=== PATIENT | male | born 1965 | race Caucasian/White ===

== ENCOUNTER 2016-07-14 09:23 | Inpatient (IN) ==
[2016-07-14] MEDS ORDERED: SODIUM CHLORIDE 0.9% 1,000 ML IV STA (09:50)
[2016-07-14] MEDS ORDERED: ACETAMINOPHEN 325 MG TABLET ONE (09:51)
[2016-07-14] MEDS ORDERED: ACETAMINOPHEN 500 MG TABLET ONE (09:53)
--- NOTE | 2016-07-14 09:57 | Emergency Department Note ---
IAbigail Gwan, am scribing for, and in the presence of, Arun Ricci MD 09:49 . Keiry Warner James D, MD, personally performed the services described in this documentation, ascribed by Dean Hayes in my presence, and it is both accurate and complete [id number] . Arrival - Arrival Chief Complaint: Urogenital - Male Stated Complaint: septic, back pain, fever, sent by dr adamson ED Nursing Triage Note: Pt c/o blood in urine, burning upon urination, fever, chills, back pain x 1 month but getting worse. Mode of Arrival: Ambulatory Limitations: No Limitations Source: Patient, Old Records Reviewed, RN Notes Reviewed Time Seen by Provider: 07/14/16 09:35 - History of Present Illness HPI Narrative: Patient is a 50 y/o male who presents to the ED for further evaluation per Dr. Dionicio Adamson office due to possible sepsis. Patient was present at Dr. Adamson office due to hematuria, dysuria, fever, back pain and fever. stated that at last check, pt's temperature was 102. He then stated that for the past week, he has had a problem completely voiding and he has also noticed some hematuria. Patient confirmed that he has an in/out catheter for the past 10 years and recently he has been having a minimal output and that he caths at least 6x a day. He denies any N/V. During exam, pt's temperature was 100.1. Onset (ago): month(s) Consistency: constant Severity: moderate Allergies/Adverse Reactions: Allergies Allergy/AdvReac Type Severity Reaction Status Date / Time meperidine [From Demerol] Allergy Unknown/Unable Verified 07/14/16 09:33 to obtain Penicillins Allergy Unknown/Unable Verified 07/14/16 09:33 to obtain Home Medications: Home Medications Medication Instructions Recorded Confirmed Type Losartan Potassium 100 mg PO QPM 07/14/16 07/14/16 History Magnesium Oxide 400 mg PO QPM 07/14/16 07/14/16 History Metoprolol Tartrate 50 mg PO BID 07/14/16 07/14/16 History Warfarin [Coumadin] 7.5 mg PO SUTUTHSA 07/14/16 07/14/16 History Warfarin [Coumadin] 10 mg PO MOWEFR 07/14/16 07/14/16 History cloNIDine TAB [Catapres Tab] 0 mg PO DAILY PRN 07/14/16 07/14/16 History Review of System - Review of System 12 point system: reviewed and no additional remarkable complaints except as stated - Review of System Constitutional: Present: as per HPI, chills, fever, weakness Eyes: Absent: discharge, pain Head/Ears/Nose/Throat: Absent: earache Respiratory: Absent: cough Cardiovascular: Absent: chest pain Gastrointestinal: Absent: abdominal pain, nausea, vomiting Genitourinary male: Present: as per HPI, dysuria, hematuria Musculoskeletal: Absent: arm pain, back pain, leg pain Medical,Surgical,& Family Hx - Medical History Genitourinary: History of: Problems - Surgical History Cardiac Surgeries: Sugical HX of: Cardiac Surgery (arotic valve replacement) - Social History Smoking Status: Never smoker Exam Physical Examination: GENERAL: This is an ill-appearing, slightly pale white male in no apparent distress. VITAL SIGNS: HEENT: Head is normocephalic and atraumatic. Pupils are equally round and reactive to light. Extraocular movement are intact. Oropharynx is benign with moist mucous membranes. NECK: Neck is soft and supple without tenderness. There are no masses. There is no lymphadenopathy. LUNGS: Lungs are clear to auscultation bilaterally. Chest rises symmetrically. There is no chest wall tenderness. CV: Heart is regular rate and rhythm without murmurs, rubs, or gallops. ABDOMEN: Abdomen is soft, non-tender to palpation. There are no abnormal masses palpated. There is no organomegaly. Bowel sounds are present and active. No CVA tenderness. SKIN: Skin is pale and warm to touch. EXTREMITIES: Patient has full range of motion without tenderness. There is no pedal edema. NEUROLOGIC: Awake, alert, and oriented x4. Cranial nerves II through XII are grossly intact. There are no motorsensory deficits. PSYCHIATRIC: Normal affect. Normal mood. Vital Signs: Vital Signs Temperature 97.9 F 07/15/16 04:25 Pulse Rate 60 07/15/16 04:25 Respiratory Rate 20 07/15/16 04:25 Blood Pressure 136/72 07/15/16 04:25 O2 Sat by Pulse Oximetry 91 L 07/15/16 04:25 Course Course Narrative: Patient was given IV gentamicin and IV vancomycin in the emergency department. - Consultations Consultation #1: Discussed with Dr. Dionicio Adamson. Patient will be admitted to his service. Initial orders written for him. He will assume care of the patient upon his arrival to [facility]. Time: 11:28 Results - Labs CBC & BMP: 07/15/16 06:06 07/15/16 06:06 Lab Results: I have reviewed the patients labs Labs: Laboratory Tests 07/14/16 09:45 WBC 16.4 H RBC 4.95 Hgb 13.7 L Hct 41.1 L MCV 83.0 L Plt Count 192 Neut % (Auto) 88.7 H Lymph % (Auto) 5.8 L Neut # (Auto) 14.6 H Lymph # (Auto) 1.0 L Laboratory Tests 07/14/16 09:45 INR 2.1 PT Patient/Control Mix 23.0 Circ Anticoag PTT 49.5 H Laboratory Tests 07/14/16 09:45 Urine pH 7.0 Ur Specific [place] 1.014 Urine Protein 100 Urine Ketones 5 Urine Blood Moderate Urine Urobilinogen 2.0 H Urine Leukocytes Trace Urine RBC 47 Urine WBC 133 Laboratory Tests 07/14/16 09:45 Sodium 137 Potassium 3.7 Chloride 104 Carbon Dioxide 23 BUN 17 Creatinine 0.90 Glucose 144 H Lactic Acid 2.3 H Globulin 3.7 H Albumin/Globulin Ratio 0.9 L - Diagnostic Findings Procedure: Chest x-ray: report reviewed by me (Continued cardiomegaly status post sternotomy. There is a hazy opacification throughout the left lower lung suspicious for consolidatie process such as pneumonia. Osseous and surrounding soft tissue structures appear grossly unchanged. ) Disposition Clinical Impression: UTI (urinary tract infection), SIRS (systemic inflammatory response syndrome), Status post aortic valve replacement, History of dissection of thoracic aorta, Possible left-sided pneumonia Case discussed with: patient Disposition: Still a Patient Condition: Guarded Time of Disposition: 10:15
[2016-07-14 09:58] LABS: Basophils # 0.1 10*3/uL (0.0-0.2); Basophils % 0.3 % (0.0-0.8); Eosinophils % 0.1 % (0.00-10.9); Hematocrit 41.1 VOL% (42.0-52.0); Hemoglobin 13.7 GM/DL (14.0-18.0); Immature Granulocytes % 0.6 %; Lymphocytes % 5.8 % (21.2-54.2); Mean Corpuscular HGB Conc 33.3 GM/DL (32-36); Mean Corpuscular Hemoglobin 28 PG (27-34); Mean Platelet Volume 10.8 FL (9.6-12.0); Monocytes # 0.7 10*3/uL (0.11-0.8); Monocytes % 4.5 % (1.7-12.7); Neutrophils # 14.6 10*3/uL (1.4-7.4); Neutrophils % 88.7 % (38.7-73.9); Platelet Count 192 T/CUMM (130-400); Red Blood Count 4.95 MC/CUMM (3.8-5.5); Red Cell Distribution Width 14.6 % (9.3-17.3); White Blood Count 16.4 T/CUMM (4-12)
[2016-07-14] MEDS ORDERED: ACETAMINOPHEN 500 MG TABLET PO STA (09:58)
[2016-07-14] MEDS ORDERED: LEVOFLOXACIN INJ 500 MG in PREMIX 1 EACH IV SCH (10:00)
[2016-07-14] MEDS ORDERED: LACTATED RINGERS 1,000 ML IV SCH (10:00)
[2016-07-14] MEDS ORDERED: GENTAMICIN INJ 240 MG in SODIUM CHLORIDE 0.9% 100 ML IV STA (10:04)
--- NOTE | 2016-07-14 10:16 | XRay Report ---
XR chest 1V portable Indication: Fever Comparison: Chest x-ray dated June 21, 2013 Technique: Frontal views of the chest Findings: Continued cardiomegaly status post sternotomy. There is hazy opacification throughout the left lower lung suspicious for consolidative process such as pneumonia. Osseous and surrounding soft tissue structures appear grossly unchanged. IMPRESSION: As above. PROCEDURE INTERPRETED AT [facility] DEPARTMENT OF RADIOLOGY Final Report Signed by: Dr Darrion Fritz
[2016-07-14 10:17] LABS: INR 2.1; Partial Thromboplastin Time 49.5 SECS (0-40)
[2016-07-14 10:22] LABS: Apearance,Urine CLOUDY (Clear); Bacteria,Urine Occasional /HPF (Few); Bilirubin,Urine Negative (Negative); Blood, Urine Moderate mg/dL (Negative); Glucose,Urine (UA) Negative (Negative); Ketones,Urine 5 mg/dL (Negative); Mucus,Urine Occasional /LPF (Occasional); Nitrite,Urine Negative (Negative); Protein,Urine 100 MG/DL; RBC,Urine 47 /HPF (0-4); Squamous Epithelial Cell,Urine Occasional /HPF (0-10); Urine Specific Gravity 1.014 (1.001-1.035); WBC,Urine 133 /HPF (0-6)
[2016-07-14 10:23] LABS: Urine Color Yellow (Yellow)
[2016-07-14 10:25] LABS: Albumin 3.4 G/DL (3.4-5.0); Bilirubin,Total 0.9 MG/DL (0.2-1.0); Lactic Acid 2.3 MMOL/L (0.4-2.0); Osmolality,Calculated 277.8 MOS/KG (273-304); Potassium 3.7 MMOL/L (3.5-5.1); Total Protein 7.1 G/DL (6.4-8.3)
[2016-07-14] MEDS ORDERED: VANCOMYCIN INJ 1,000 MG in SODIUM CHLORIDE 0.9% 250 ML IV STA (10:58)
[2016-07-14] MEDS ORDERED: VANCOMYCIN 1,000 MG VIAL ONE ×2 (11:14→11:55)
[2016-07-14] MEDS ORDERED: ACETAMINOPHEN 325 MG TABLET PO PRN (12:48)
[2016-07-14] MEDS ORDERED: GLUCAGON 1 MG VIAL IM PRN (12:48)
[2016-07-14] MEDS ORDERED: DEXTROSE 50% 25 GM/50 ML VIAL IV PRN (12:48)
[2016-07-14] MEDS ORDERED: ONDANSETRON 4 MG/2 ML VIAL IV PRN (12:48)
[2016-07-14] MEDS ORDERED: PROMETHAZINE 25 MG/1 ML VIAL IM PRN (12:48)
[2016-07-14] MEDS: SODIUM CHLORIDE 0.45% 1,000 ML IV SCH (14:14)
--- NOTE | 2016-07-14 17:57 | Urology History & Physical ---
Assessment and Plan - Time spent with patient Time spent with patient: Greater than 30 minutes (1) Neurogenic bladder Status: Acute Assessment and plan: Continue intermittent catheterization and await cultures. Current Visit: Yes (2) Pneumonia Status: Acute Current Visit: Yes 12 point system: reviewed and no additional remarkable complaints except as stated - Respiratory Respiratory: Present: cough, dyspnea on exertion History of Present Illness Chief complaint: Back pain,cough History of present illness: Mr. Fontenot is a 50 year old male who is known to me. He shows up the emergency room feeling ill with a temperature. And I was called by the ER physician and I think the ER physician felt that he was becoming quite ill from urinary tract infection. He does have a neurogenic bladder and does perform intermittent catheterization. However when I am seeing him he has had a cough for a while and the chest x-ray reveals that he is got a pneumonia. Thaw I am not really sure what the cause of his being ill but I think it is probably pneumonia. His urine only shows occasional bacteria with the hematuria pyuria as expected on intermittent catheterization. Cultures are pending. Patient is on vancomycin and gentamicin. Those are not the best pulmonary drugs. So I am going to consult pulmonary and have the nurse asked the prepper what antibiotic is going to be on. I am going to stop the vancomycin. Will await his urine culture to see if he is truly infected. This could be a combination of sources urinary tract and pulmonary. Home Medications Medication Instructions Recorded Confirmed Type Losartan Potassium 100 mg PO QPM 07/14/16 07/14/16 History Magnesium Oxide 400 mg PO QPM 07/14/16 07/14/16 History Metoprolol Tartrate 50 mg PO BID 07/14/16 07/14/16 History Warfarin [Coumadin] 7.5 mg PO SUTUTHSA 07/14/16 07/14/16 History Warfarin [Coumadin] 10 mg PO MOWEFR 07/14/16 07/14/16 History cloNIDine TAB [Catapres Tab] 0 mg PO DAILY PRN 07/14/16 07/14/16 History Allergies Allergy/AdvReac Type Severity Reaction Status Date / Time meperidine [From Demerol] Allergy Unknown/Unable Verified 07/14/16 09:33 to obtain Penicillins Allergy Unknown/Unable Verified 07/14/16 09:33 to obtain Medical,Surgical,& Family Hx - Medical History Cardio: History of: Aneurysm Endocrine: History of: Diabetes Mellitus (NIDDM) Genitourinary: History of: Bladder Problem, Problems Musculoskeletal: History of: Back/Neck Problems, Musculoskeletal Problems - Surgical History Cardiac Surgeries: Sugical HX of: Cardiac Surgery (arotic valve replacement) - Social History Smoking Status: Never smoker Frequency of Alcohol Use: None Type of Drug Use: None Exam - Constitutional Vitals: Period Temp Pulse Resp BP Sys/Avendano Pulse Ox Last 24 Hr 98.3 F-99.6 F 62-71 16-24 119-151/58-97 92-96 - Respiratory Respiratory exam: Present: decreased breath sounds, rales - Cardiovascular Cardiovascular exam: Present: regular rate and rhythm - GI/Abdominal GI/Abdominal exam: Present: normal bowel sounds, soft. Absent: ascites, distended, firm, guarding, hernia, tenderness - Genitourinary Genitourinary: scrotum without lesions, cysts, edema or rash, penis with no lesions or discharge, prostate nontender, with no enlargement or nodules Results - Labs CBC & BMP: 07/14/16 09:45 07/14/16 09:45
[2016-07-14] MEDS: cefTRIAXone 2,000 MG in SODIUM CHLORIDE 0.9% 100 ML IV SCH (19:26)
[2016-07-14] MEDS ORDERED: WARFARIN 10 MG TABLET PO SCH ×2 (20:00→21:00)
[2016-07-14] MEDS ORDERED: VANCOMYCIN INJ 1,750 MG in SODIUM CHLORIDE 0.9% 500 ML IV SCH (21:00)
[2016-07-14] MEDS ORDERED: LOSARTAN 50 MG TABLET PO SCH ×2 (21:00)
[2016-07-14] MEDS ORDERED: WARFARIN 7.5 MG TABLET PO SCH (21:00)
[2016-07-14] MEDS ORDERED: WARFARIN 5 MG TABLET ONE (21:43)
[2016-07-14] MEDS: LOSARTAN 50 MG TABLET PO SCH (22:57)
[2016-07-14] MEDS: METOPROLOL TARTRATE 50 MG TABLET PO SCH (22:57)
[2016-07-14] MEDS: GENTAMICIN INJ 480 MG in SODIUM CHLORIDE 0.9% 100 ML IV SCH (22:58)
[2016-07-15] MEDS: SODIUM CHLORIDE 0.45% 1,000 ML IV SCH ×4 (01:55→20:12)
[2016-07-15 07:32] LABS: Basophils % 0.6 % (0.0-0.8); Eosinophils # 0.1 10*3/uL (0.0-0.87); Eosinophils % 1.7 % (0.00-10.9); Hematocrit 38.2 VOL% (42.0-52.0); Hemoglobin 12.2 GM/DL (14.0-18.0); Immature Granulocytes % 0.6 %; Immature Granulocytes Absolute 0.04 #; Lymphocytes # 1.6 10*3/uL (1.4-4.0); Lymphocytes % 24.5 % (21.2-54.2); Mean Corpuscular HGB Conc 31.9 GM/DL (32-36); Mean Corpuscular Hemoglobin 27 PG (27-34); Mean Corpuscular Volume 84.5 FL (87-102); Mean Platelet Volume 11.1 FL (9.6-12.0); Monocytes # 0.7 10*3/uL (0.11-0.8); Monocytes % 10.6 % (1.7-12.7); Neutrophils # 4.1 10*3/uL (1.4-7.4); Platelet Count 169 T/CUMM (130-400); Red Blood Count 4.52 MC/CUMM (3.8-5.5); Red Cell Distribution Width 14.8 % (9.3-17.3); White Blood Count 6.5 T/CUMM (4-12)
--- NOTE | 2016-07-15 07:46 | Pulmonology Consult Note ---
Assessment and Plan (1) Acute bronchitis Status: Acute Assessment and plan: Rocephin should cover this. Cannot be sure if he has pneumonia. We will get a CT scan. The chest x-ray that I see now looks pretty much the same as one from 2014 with some haziness at the left lower chest. Likely due to previous thoracotomy and recurrent pleural effusions following that. Current Visit: Yes (2) Acute and chronic sinusitis Status: Acute Assessment and plan: Rocephin should cover. Current Visit: Yes (3) History of dissection of thoracic aorta Status: Acute Assessment and plan: Lead to previous left thoracotomy leaving permanent abnormalities on his chest x -ray. Current Visit: Yes (4) Status post aortic valve replacement Status: Acute Assessment and plan: Keep in mind if blood cultures are positive. He would need prolonged antibiotics if they are. Current Visit: Yes History of Present Illness Chief complaint: Cough and fever History of present illness: Mr. Fontenot is a 50 year old male who had congestion for the past week and fever to 102 for the last 2 days. He has chronic sinus problems after an accident as a child requiring a good bit of sinus surgery. He had an aortic valve replacement about 15 years ago here. He had a left thoracotomy for thoracic aortic aneurysm with dissection 3 or 4 years ago at [facility]. They subsequently had to train a good bit of fluid off his left chest over and over again and he is left with some haziness of the left lower chest seen on previous x-rays. Reviewing the current chest x-ray I do not see anything that I would call pneumonia. However I would recommend getting a noncontrast chest CT to be sure about that. I discussed the case with Dr. Travis yesterday and recommended Rocephin. That would help with either sinusitis or a bronchopneumonia or bronchitis or urinary tract infection. I suspect he has got sinusitis and bronchitis. Home Medications Medication Instructions Recorded Confirmed Type Losartan Potassium 100 mg PO QPM 07/14/16 07/14/16 History Magnesium Oxide 400 mg PO QPM 07/14/16 07/14/16 History Metoprolol Tartrate 50 mg PO BID 07/14/16 07/14/16 History Warfarin [Coumadin] 7.5 mg PO SUTUTHSA 07/14/16 07/14/16 History Warfarin [Coumadin] 10 mg PO MOWEFR 07/14/16 07/14/16 History cloNIDine TAB [Catapres Tab] 0 mg PO DAILY PRN 07/14/16 07/14/16 History Allergies Allergy/AdvReac Type Severity Reaction Status Date / Time meperidine [From Demerol] Allergy Unknown/Unable Verified 07/14/16 09:33 to obtain Penicillins Allergy Unknown/Unable Verified 07/14/16 09:33 to obtain - Constitutional Constitutional: Present: fever(s) - EENT Nose, mouth and throat: Present: other (Previous left facial and sinus surgery with chronic sinusitis) - Respiratory Respiratory: Present: cough, change in phlegm color (Sputum is actually clear) - Genitourinary Genitourinary: Present: other (Has a neurogenic bladder and catheterised himself frequently.) Exam (Pulmonay) H&P - Constitutional Vitals: Period Temp Pulse Resp BP Sys/Avendano Pulse Ox Last 24 Hr 97.9 F-99.6 F 60-71 16-24 119-151/58-97 91-96 Exam: Alert oriented. Afebrile present but had a temperature of 102 prior to admission. Pupils equal and reactive. Neck supple no bruits. Chest reveals some dullness at the left base and decreased breath sounds. Left thoracotomy scar is noted. Heart normal rate irregular rhythm, mechanical aortic valve click noted. Abdomen soft nontender no masses. Extremities no clubbing cyanosis or edema. Calves nontender. Medical,Surgical,& Family Hx - Medical History Cardio: History of: Aneurysm Endocrine: History of: Diabetes Mellitus (NIDDM) Genitourinary: History of: Bladder Problem, Problems Musculoskeletal: History of: Back/Neck Problems, Musculoskeletal Problems - Surgical History Cardiac Surgeries: Sugical HX of: Cardiac Surgery (arotic valve replacement) - Social History Smoking Status: Never smoker Frequency of Alcohol Use: None Type of Drug Use: None Results - Labs CBC & BMP: 07/15/16 06:06 07/14/16 09:45 Lab Results: I have reviewed the past 24 hour labs - Diagnostic Findings Procedure: Chest x-ray: image reviewed by me (Slightly hazy at left base. No ricardo infiltrates. Evidence of previous sternal splitting operation noted.)
[2016-07-15 08:06] LABS: Calcium 7.9 MG/DL (8.5-10.1); Osmolality,Calculated 283.1 MOS/KG (273-304)
[2016-07-15] MEDS: METOPROLOL TARTRATE 50 MG TABLET PO SCH ×2 (09:20→20:17)
--- NOTE | 2016-07-15 09:49 | CT Report ---
Exam:CT chest wo con Date:07/15/2016 7:49 AM Indication: Cough, fever, previous left thoracotomy question pneumonia Comparison: Previous CT scan 11/27/2012 Technical: Images were obtained from the thoracic inlet through the lung bases without use of intravenous contrast. Axial sagittal and coronal imaging was available for review.Dose reduction was performed with decreasing kv and mA and automated exposure Total DLP: 612.6 mGy*cm Findings: The thyroid gland, trachea and esophagus are unremarkable. The anterior middle and posterior mediastinum are demonstrated with small tiny nodes present in the carinal region and aortopulmonic window. No bulky adenopathy. No supraclavicular axillary nodes present. The heart is enlarged. The pulmonary arteries without contrast or not otherwise evaluated. Coronary artery calcifications are present. ASVD is present in the aorta. The lungs are right lung is clear. There is some pleural thickening in the left base anteriorly and along the lingula segment there is faint area of groundglass density anteriorly inferiorly. Minimal pleural thickening in the left posterior base. The bony structures are unremarkable. The adrenal glands are intact. The liver and spleen are unremarkable. Small accessory splenule is however present. The proximal kidneys appear intact. The gallbladder and pancreas are unremarkable. Impression: 1. Status post sternotomy with underlying cardiomegaly 2. Groundglass density in the lingula segment of the left lung. No defined pulmonary nodule otherwise noted. This could represent a component of scar not otherwise clarified. Follow-up repeat examination to ensure stability in approximately 1-3 months is recommended. No consolidating infiltrate present. This area measures approximately 3.5 cm PROCEDURE INTERPRETED AT [facility] DEPARTMENT OF RADIOLOGY Final Report Signed by: Dr. Carl Ulloa
--- NOTE | 2016-07-15 11:57 | Urology Progress Note ---
Assessment and Plan (1) Neurogenic bladder Status: Acute Assessment and plan: Continue intermittent catheterization and await cultures. Current Visit: Yes (2) Pneumonia Status: Acute Current Visit: Yes Urology - PN: Subj Interval history: Patient is feeling better. His white count is normal now. I will remove his Shah. In discussing his self cath technique I think he is doing a lot of things wrong. He is touching the end of the catheter and is not using Betadine at his meatus. I will remove his catheter. We will have the nurses go over Self-Cath technique. His blood cultures negative but urine cultures pending. I appreciate Dr. Hansen input. Exam - Constitutional Vitals: Period Temp Pulse Resp BP Sys/Avendano Pulse Ox Last 24 Hr 97.4 F-99.6 F 60-71 16-21 119-136/58-72 91-96 Results - Labs CBC & BMP: 07/15/16 06:06 07/15/16 06:06
[2016-07-15] MEDS ORDERED: WARFARIN 7.5 MG TABLET PO SCH ×2 (18:00→21:00)
[2016-07-15] MEDS: cefTRIAXone 2,000 MG in SODIUM CHLORIDE 0.9% 100 ML IV SCH (18:55)
[2016-07-15] MEDS: GENTAMICIN INJ 480 MG in SODIUM CHLORIDE 0.9% 100 ML IV SCH (19:54)
[2016-07-15] MEDS: LOSARTAN 50 MG TABLET PO SCH (20:17)
[2016-07-16] MEDS: SODIUM CHLORIDE 0.45% 1,000 ML IV SCH (07:16)
[2016-07-16] MEDS: METOPROLOL TARTRATE 50 MG TABLET PO SCH (08:52)
--- NOTE | 2016-07-16 09:17 | Pulmonology Progress Note ---
Pulmonary - PN: Subj Interval history: This 50-year-old white male came in with fever. He had had a cough. He had an abnormal urinalysis and has a positive urine culture for gram-positive cocci. The final report is not out. His chest x-ray suggested a left lower lobe pneumonia. The CT scan shows one area in the inferior lingula of groundglass opacity. This can be seen in pneumonia or could be old scarring. He had a lot of problems with his left chest following heart and thoracic aortic aneurysm surgeries. He had a large left pleural effusion that was drained multiple times about 4 years ago. It is likely that this small area is related to that but I cannot say that it is not pneumonia for sure. Thus he is on Rocephin. He is afebrile and feeling better. From a pulmonary standpoint he could be discharged on oral Ceftin for about 5 more days. He needs to have a repeat CT done here in about 3 months to be sure this area either clears up or is a stable scar. I will arrange for him to see me back in the clinic at that time. Exam (Progress Note) - Constitutional Vitals: Period Temp Pulse Resp BP Sys/Avendano Pulse Ox Last 24 Hr 97.8 F-99.0 F 54-76 18-20 133-152/63-78 92-94 Exam: He is alert afebrile pupils react to light throat clear neck supple no bruits. Chest sounds clear. He is missing several ribs on the left side from his previous lung surgery. Heart normal rate and rhythm with a click over his aortic valve. Abdomen is soft nontender no masses. Bowel sounds present. Extremities no clubbing cyanosis or edema. Calves nontender. Results - Labs CBC & BMP: 07/15/16 06:06 07/15/16 06:06 Lab Results: I have reviewed the past 24 hour labs - Diagnostic Findings Procedure: CT: image reviewed by me (Small area of groundglass opacity in the inferior lingula on the left. Likely old scarring. Could be localized pulmonary edema or pneumonia. Did not have the typical appearance of a pneumonia) Assessment and Plan (1) Acute bronchitis Status: Acute Assessment and plan: Rocephin should cover this. Cannot be sure if he has pneumonia. We will get a CT scan. The chest x-ray that I see now looks pretty much the same as one from 2014 with some haziness at the left lower chest. Likely due to previous thoracotomy and recurrent pleural effusions following that. 07/16/2016 can be discharged on oral Ceftin. It is not certain whether the inferior lingular area represents a scar from previous thoracic problems, or any acute pneumonia. I think it is likely an old scar. Would keep him on Ceftin for about 5 more days for this. Needs follow-up chest CT in 3 months which I will arrange. Current Visit: Yes (2) Acute and chronic sinusitis Status: Acute Assessment and plan: Rocephin should cover. Current Visit: Yes (3) History of dissection of thoracic aorta Status: Acute Assessment and plan: Lead to previous left thoracotomy leaving permanent abnormalities on his chest x -ray. 07/16/[address] likely related to the previous surgery for dissecting thoracic aortic aneurysm. He had large pleural effusion following that with recurrent drainage procedures. Current Visit: Yes (4) Status post aortic valve replacement Status: Acute Assessment and plan: Keep in mind if blood cultures are positive. He would need prolonged antibiotics if they are. 07/16/2016 blood cultures are negative. Aortic valve appears to be functioning normally. Current Visit: Yes (5) UTI (urinary tract infection) Status: Acute Assessment and plan: Likely related to his neurogenic bladder and recurrent catheterizations. Has a positive culture for gram-positive cocci. We do not have the final results on that. Defer to Dr. Travis on management of this. Current Visit: Yes
[2016-07-16 11:47] VITALS: BP 116/67
--- NOTE | 2016-07-16 12:46 | Discharge Summary ---
Hospital Course - Hospital Course Hospital Course: 50-year-old white male known to me. He has Self-Cath. He has multiple medical problems. One is a neurogenic bladder with large bladder diverticulum. He is on intermittent self cath. He unfortunately has had some recurrent urinary tract infections. But he presented with high fever ill and was admitted the hospital and cultured up. He was initially started on vancomycin and gentamicin. The vancomycin was stopped we added Rocephin. His chest x-ray showed some changes that could be a pneumonia. Dr. Hansen was consulted and he cannot rule this out to be a pneumonia or something else. But he recommends treating this as a pneumonia for now. Patient is afebrile now he is feeling much better and we will discharge him. Part of the problem I think was his self cath technique. After meticulously questioning him his technique is very poor. Hopefully we have corrected that. We also have offered him a new self- contained catheter and he likes it very much. We are changing his care company to [employer]. His urine culture grew is growing out gram-positive cocci the sensitivities pending. We will send him home on Bactrim. Dr. Hansen recommends Ceftin for 5 more days for the pulmonary issue. Bactrim will be 10 days for the urinary tract. I will see him in 2 weeks. - Time spent with patient Time with patient DS: Greater than 30 minutes Diagnosis - Discharge Diagnosis (1) Neurogenic bladder Status: Chronic (2) Pneumonia Status: Acute (3) UTI (urinary tract infection) Status: Resolved (4) SIRS (systemic inflammatory response syndrome) Status: Resolved Specialty Discharge - Follow Up or Referrals Discharge Plan - Discharge Data Disposition: Disch To Home/Self Care Condition at Discharge: Stable Discharge Diet: regular diet Activity: resume usual activities as tolerated Hygiene: no restrictions Weight Bearing at Discharge: full weight bearing Driving: no restrictions Contact your physician if you experience:: fever over 101, Shortness of breath, Bleeding - Discharge Medications New guaiFENesin/DM LIQUID [Robitussin Dm] 10 ml PO Q6H PRN #0 PRN Reason: Cough Continue Warfarin [Coumadin] 10 mg PO MOWEFR Magnesium Oxide 400 mg PO QPM Warfarin [Coumadin] 7.5 mg PO SUTUTHSA Metoprolol Tartrate 50 mg PO BID cloNIDine TAB [Catapres Tab] 0 mg PO DAILY PRN PRN Reason: BP >165 SYSTOLIC Losartan Potassium 100 mg PO QPM - Follow Up or Referral - Forms/Instructions Instructions: Urinary Tract Infection in Men (DC) Exam - Constitutional Vitals: Period Temp Pulse Resp BP Sys/Avendano Pulse Ox Last 24 Hr 97.5 F-99.0 F 49-76 16-20 116-152/67-78 92-94 Discharge Results Procedures and tests throughout hospitalization: Pending Orders 07/18/16 19:30 Gentamicin,Trough Timed Labs on day of discharge: Labs from last 24 hours 07/16/16 07/15/16 07/15/16 07:45 22:09 16:18 POC Glucose 151 H 112 H 120 H DS: Provider Date of admission: 07/14/16 11:02 Primary care physician: Dionicio Travis MD Attending physician on admission: Dionicio Travis MD Consults: 07/14/16 14:08 Consult to Pharmacy [CONS] Routine Reason for Pharmacy Consult: Dose/Manage Vancomycin Dose/Manage Gentamicin 07/14/16 17:05 Consult to Physician [CONS] Routine Comment: Consulting Provider: Dionicio Travis Person Notified: aware Date Notified: 07/15/16 Time Notified: 10:49 07/14/16 17:53 Consult to Physician [CONS] Routine Comment: Pneumonia Consulting Provider: Ion Hansen Consult to Specialist Group: Urology When should Consulting Provider be notified: Now Person Notified: Dr. Hansen Date Notified: 07/14/16 Time Notified: 18:06 Consult Notification Comment: Dr. Hansen aware Office needs to be called. Discharging clinician: Dionicio Travis MD
== END 2016-07-16 14:43 | disposition home or self-care (01) | DRG 202 ==
LOC: N.ED 09:23 → N.EDINP 11:02 → N.5E 11:43
PROVIDERS: ADMIT Urology; ATTEND Urology

== ENCOUNTER 2021-04-05 11:36 | Inpatient (IN) ==
[2021-04-05] MEDS ORDERED: methylPREDNISolone SOD SUC 40 MG/1 ML VIAL IV STA (13:11)
[2021-04-05] MEDS ORDERED: AZITHROMYCIN INJ 500 MG in SODIUM CHLORIDE 0.9% 250 ML IV STA (13:12)
[2021-04-05] MEDS ORDERED: cefTRIAXone 1,000 MG in SODIUM CHLORIDE 0.9% 100 ML IV STA (13:12)
[2021-04-05] MEDS ORDERED: SODIUM CHLORIDE 0.9% 250 ML IV ONE (13:54)
[2021-04-05 13:56] LABS: Basophils % 0.3 % (0.0-0.8); Hematocrit 47.2 VOL% (42.0-52.0); Hemoglobin 15.5 GM/DL (14.0-18.0); Immature Granulocytes % 0.5 %; Immature Granulocytes Absolute 0.03 #; Lymphocytes # 0.8 10*3/uL (1.4-4.0); Lymphocytes % 12.2 % (21.2-54.2); Mean Corpuscular HGB Conc 32.8 GM/DL (32-36); Mean Corpuscular Volume 81.7 FL (87-102); Mean Platelet Volume 10.3 FL (9.6-12.0); Monocytes % 5.9 % (1.7-12.7); Neutrophils % 81.1 % (38.7-73.9); Platelet Count 165 T/CUMM (130-400); Red Blood Count 5.78 MC/CUMM (3.8-5.5); Red Cell Distribution Width 15.7 % (9.3-17.3); White Blood Count 6.5 T/CUMM (4-12)
[2021-04-05 14:07] LABS: INR 3.2
[2021-04-05 14:08] LABS: PT Patient Result 32.4 SECS (10.5-12.0)
[2021-04-05 14:13] LABS: Alanine Aminotransferase 55 U/L (16-61); Albumin 3.2 G/DL (3.4-5.0); Alkaline Phosphatase 53 U/L (45-117); Aspartate Amino Transferase 89 U/L (0-37); Blood Urea Nitrogen 16 MG/DL (7-18); Calcium 8.5 MG/DL (8.5-10.1); Carbon Dioxide 26 MMOL/L (21-32); Estimated Glom Filtration Rate 142 ML/MIN; Glucose 129 MG/DL (74-106); Osmolality,Calculated 262.8 MOS/KG (273-304); Potassium 3.8 MMOL/L (3.5-5.1); Sodium 130 MMOL/L (136-145); Total Protein 7.2 G/DL (6.4-8.2)
[2021-04-05] MEDS ORDERED: ALBUTEROL INHALER 18 GM INH ONE (14:30)
[2021-04-05] MEDS ORDERED: DEXTROSE 10% 25 GM/250 ML BAG IV PRN (15:01)
[2021-04-05] MEDS ORDERED: GLUCAGON 1 MG VIAL IM PRN (15:01)
[2021-04-05] MEDS ORDERED: CETIRIZINE 10 MG TABLET PO PRN (15:03)
[2021-04-05] MEDS ORDERED: DEXAMETHASONE 10 MG/1 ML VIAL IV SCH (15:30)
[2021-04-05 15:45] LABS: Thyroid Stimulating Hormone 0.912 uIU/ml (0.358-3.74)
[2021-04-05 15:55] LABS: Ferritin 2781.7 ng/mL (26-388)
[2021-04-05] MEDS: CHOLECALCIFEROL 1,000 UNIT TABLET PO SCH (16:10)
[2021-04-05] MEDS: ZINC SULFATE 220 MG CAPSULE PO SCH (16:10)
[2021-04-05] MEDS ORDERED: REMDESIVIR 200 MG in SODIUM CHLORIDE 0.9% 210 ML IV ONE (17:00)
[2021-04-05] MEDS ORDERED: WARFARIN 7.5 MG TABLET PO SCH (18:00)
[2021-04-05] MEDS: ALBUTEROL INHALER 18 GM INH SCH (22:12)
[2021-04-05] MEDS: ASCORBIC ACID 500 MG TABLET PO SCH (22:22)
[2021-04-05] MEDS: ATORVASTATIN 40 MG TABLET PO SCH (22:22)
[2021-04-05] MEDS: ACETAMINOPHEN 325 MG TABLET PO PRN (22:22)
[2021-04-05] MEDS: FAMOTIDINE 20 MG TABLET PO SCH (22:22)
[2021-04-06] MEDS: ALBUTEROL INHALER 18 GM INH SCH ×4 (00:45→21:09)
[2021-04-06 03:18] LABS: Hematocrit 45.3 VOL% (42.0-52.0); Hemoglobin 14.3 GM/DL (14.0-18.0); Immature Granulocytes % 0.6 %; Immature Granulocytes Absolute 0.02 #; Lymphocytes # 0.6 10*3/uL (1.4-4.0); Lymphocytes % 19.2 % (21.2-54.2); Mean Corpuscular HGB Conc 31.6 GM/DL (32-36); Mean Corpuscular Volume 83.7 FL (87-102); Monocytes % 5.4 % (1.7-12.7); Neutrophils % 74.8 % (38.7-73.9); Platelet Count 145 T/CUMM (130-400); Red Blood Count 5.41 MC/CUMM (3.8-5.5); Red Cell Distribution Width 15.7 % (9.3-17.3); White Blood Count 3.3 T/CUMM (4-12)
[2021-04-06 03:37] LABS: Hypochromia Slight; Microcytosis 1+; PT Patient Result 40.3 SECS (10.5-12.0)
[2021-04-06 03:38] LABS: Ovalocytes Slight; Platelet Estimate Adequate
[2021-04-06 04:01] LABS: ABG Base Excess -0.6 MMOL/L (-2.5-2.5); ABG HCO3 23.9 MMOL/L (20-26); ABG Oxygen Saturation 97.6 % (95-100); ABG PCO2 49.2 MM HG (35-48); ABG PH 7.334 (7.35-7.45); ABG TCO2 22.4 MMOL/L (23-27)
[2021-04-06 04:07] LABS: Calcium 8.1 MG/DL (8.5-10.1); Osmolality,Calculated 274.5 MOS/KG (273-304); Potassium 4.1 MMOL/L (3.5-5.1)
[2021-04-06] MEDS: ASCORBIC ACID 500 MG TABLET PO SCH ×2 (09:15→21:09)
[2021-04-06] MEDS: CHOLECALCIFEROL 1,000 UNIT TABLET PO SCH (09:15)
[2021-04-06] MEDS: ZINC SULFATE 220 MG CAPSULE PO SCH (09:15)
[2021-04-06] MEDS: DEXAMETHASONE 10 MG/1 ML VIAL IV SCH (09:15)
[2021-04-06] MEDS: FAMOTIDINE 20 MG TABLET PO SCH ×2 (09:15→21:09)
[2021-04-06] MEDS: CETIRIZINE 10 MG TABLET PO SCH (09:30)
[2021-04-06] MEDS: REMDESIVIR 100 MG in SODIUM CHLORIDE 0.9% 100 ML IV SCH (09:30)
[2021-04-06] MEDS ORDERED: cloNIDine 0.1 MG TABLET PO PRN (13:13)
[2021-04-06] MEDS: cefTRIAXone 1,000 MG in SODIUM CHLORIDE 0.9% 100 ML IV SCH (14:16)
[2021-04-06] MEDS: AZITHROMYCIN INJ 500 MG in SODIUM CHLORIDE 0.9% 250 ML IV SCH (14:16)
[2021-04-06] MEDS: METOPROLOL TARTRATE 50 MG TABLET PO SCH (21:08)
[2021-04-06] MEDS: ATORVASTATIN 40 MG TABLET PO SCH (21:08)
[2021-04-06] MEDS: LOSARTAN 50 MG TABLET PO SCH (21:08)
[2021-04-07] MEDS: ALBUTEROL INHALER 18 GM INH SCH ×4 (01:12→18:00)
[2021-04-07 05:06] LABS: Basophils % 0.1 % (0.0-0.8); Hematocrit 49.2 VOL% (42.0-52.0); Hemoglobin 15.6 GM/DL (14.0-18.0); Immature Granulocytes % 0.6 %; Immature Granulocytes Absolute 0.06 #; Lymphocytes # 0.7 10*3/uL (1.4-4.0); Lymphocytes % 7.2 % (21.2-54.2); Mean Corpuscular HGB Conc 31.7 GM/DL (32-36); Mean Corpuscular Volume 83.8 FL (87-102); Mean Platelet Volume 10.5 FL (9.6-12.0); Monocytes % 7.3 % (1.7-12.7); Neutrophils % 84.8 % (38.7-73.9); Platelet Count 226 T/CUMM (130-400); Red Blood Count 5.87 MC/CUMM (3.8-5.5); Red Cell Distribution Width 16.1 % (9.3-17.3); White Blood Count 9.5 T/CUMM (4-12)
[2021-04-07 05:23] LABS: PT Patient Result 58.7 SECS (10.5-12.0)
[2021-04-07] MEDS ORDERED: CLORAZEPATE 3.75 MG TABLET PO PRN (07:57)
[2021-04-07] MEDS: METOPROLOL TARTRATE 50 MG TABLET PO SCH ×2 (08:34→20:23)
[2021-04-07 08:44] LABS: Albumin 2.7 G/DL (3.4-5.0); Bilirubin,Total 0.5 MG/DL (0.20-1.00); Calcium 8.4 MG/DL (8.5-10.1); Ferritin 3758.3 ng/mL (26-388); Osmolality,Calculated 280.1 MOS/KG (273-304); Potassium 4.5 MMOL/L (3.5-5.1); Total Protein 6.6 G/DL (6.4-8.2)
[2021-04-07] MEDS: DEXAMETHASONE 10 MG/1 ML VIAL IV SCH (08:49)
[2021-04-07] MEDS: REMDESIVIR 100 MG in SODIUM CHLORIDE 0.9% 100 ML IV SCH (08:51)
[2021-04-07] MEDS: ASCORBIC ACID 500 MG TABLET PO SCH ×2 (08:52→20:23)
[2021-04-07] MEDS: CHOLECALCIFEROL 1,000 UNIT TABLET PO SCH (08:52)
[2021-04-07] MEDS: FAMOTIDINE 20 MG TABLET PO SCH ×2 (08:52→20:23)
[2021-04-07] MEDS: CETIRIZINE 10 MG TABLET PO SCH (08:52)
[2021-04-07] MEDS: ZINC SULFATE 220 MG CAPSULE PO SCH (08:52)
[2021-04-07] MEDS: LORazepam 2 MG/1 ML VIAL IV PRN ×3 (09:24→22:47)
[2021-04-07] MEDS: AZITHROMYCIN INJ 500 MG in SODIUM CHLORIDE 0.9% 250 ML IV SCH (13:39)
[2021-04-07] MEDS ORDERED: BARICITINIB 2 MG TABLET PO SCH (14:30)
[2021-04-07] MEDS: cefTRIAXone 1,000 MG in SODIUM CHLORIDE 0.9% 100 ML IV SCH (15:16)
[2021-04-07] MEDS ORDERED: PHYTONADIONE 5 MG/5 ML ORAL.SYR PO ONE (16:00)
[2021-04-07] MEDS: LOSARTAN 50 MG TABLET PO SCH (18:00)
[2021-04-07 18:39] LABS: ABG Base Excess 1.6 MMOL/L (-2.5-2.5); ABG HCO3 25.6 MMOL/L (20-26); ABG Oxygen Saturation 91.1 % (95-100); ABG PCO2 40.5 MM HG (35-48); ABG PH 7.418 (7.35-7.45); ABG PO2 64.8 MM HG (80-95)
[2021-04-07] MEDS: ATORVASTATIN 40 MG TABLET PO SCH (21:00)
[2021-04-08 01:42] LABS: ABG Base Excess 0.8 MMOL/L (-2.5-2.5); ABG HCO3 25.1 MMOL/L (20-26); ABG Oxygen Saturation 96.8 % (95-100); ABG PCO2 37.9 MM HG (35-48); ABG PH 7.426 (7.35-7.45); ABG PO2 94.9 MM HG (80-95); ABG TCO2 20.6 MMOL/L (23-27)
[2021-04-08] MEDS ORDERED: LORazepam 2 MG/1 ML VIAL IV ONE (01:43)
[2021-04-08] MEDS: ALBUTEROL INHALER 18 GM INH SCH ×4 (01:48→22:29)
[2021-04-08] MEDS ORDERED: OLANZapine 10 MG VIAL IM ONE (02:58)
[2021-04-08] MEDS: LORazepam 2 MG/1 ML VIAL IV PRN ×2 (04:32→21:04)
[2021-04-08] MEDS ORDERED: ZIPRASIDONE 20 MG/1 ML VIAL IM ONE (04:40)
[2021-04-08 05:47] LABS: Basophils % 0.1 % (0.0-0.8); Hematocrit 54.9 VOL% (42.0-52.0); Hemoglobin 17.1 GM/DL (14.0-18.0); Immature Granulocytes % 1.1 %; Immature Granulocytes Absolute 0.11 #; Lymphocytes # 0.6 10*3/uL (1.4-4.0); Lymphocytes % 6.7 % (21.2-54.2); Mean Corpuscular HGB Conc 31.1 GM/DL (32-36); Mean Corpuscular Volume 85.1 FL (87-102); Mean Platelet Volume 10.1 FL (9.6-12.0); Monocytes % 7.3 % (1.7-12.7); Neutrophils % 84.8 % (38.7-73.9); Platelet Count 238 T/CUMM (130-400); Red Blood Count 6.45 MC/CUMM (3.8-5.5); Red Cell Distribution Width 17.3 % (9.3-17.3); White Blood Count 9.6 T/CUMM (4-12)
[2021-04-08 06:09] LABS: Calcium 8.9 MG/DL (8.5-10.1); Osmolality,Calculated 290.4 MOS/KG (273-304); Potassium 3.9 MMOL/L (3.5-5.1)
[2021-04-08 06:17] LABS: Osmolality,Calculated 285.8 MOS/KG (273-304); Potassium 3.8 MMOL/L (3.5-5.1)
[2021-04-08] MEDS ORDERED: MORPHINE 2 MG/1 ML SYRINGE IV ONE (06:24)
[2021-04-08 06:25] LABS: PT Patient Result 63.4 SECS (10.5-12.0)
[2021-04-08 06:26] LABS: Albumin 3.1 G/DL (3.4-5.0); Bilirubin,Total 0.9 MG/DL (0.20-1.00); Calcium 9.2 MG/DL (8.5-10.1); Ferritin 4243.5 ng/mL (26-388); Total Protein 7.1 G/DL (6.4-8.2)
[2021-04-08 06:27] LABS: INR 6.5
[2021-04-08 06:46] LABS: ABG HCO3 25.1 MMOL/L (20-26); ABG Oxygen Saturation 94.1 % (95-100); ABG PCO2 38.8 MM HG (35-48); ABG PH 7.421 (7.35-7.45); ABG PO2 74.5 MM HG (80-95); ABG TCO2 21.1 MMOL/L (23-27)
[2021-04-08] MEDS ORDERED: PHYTONADIONE 10 MG/1 ML AMP SUBCUT ONE (08:00)
[2021-04-08] MEDS: DEXAMETHASONE 10 MG/1 ML VIAL IV SCH (08:17)
[2021-04-08] MEDS: METOPROLOL TARTRATE 50 MG TABLET PO SCH ×2 (09:02→21:04)
[2021-04-08] MEDS: FAMOTIDINE 20 MG TABLET PO SCH ×2 (09:02→21:03)
[2021-04-08] MEDS: REMDESIVIR 100 MG in SODIUM CHLORIDE 0.9% 100 ML IV SCH (09:02)
[2021-04-08] MEDS: ZINC SULFATE 220 MG CAPSULE PO SCH (09:03)
[2021-04-08] MEDS: CHOLECALCIFEROL 1,000 UNIT TABLET PO SCH (09:03)
[2021-04-08] MEDS: CETIRIZINE 10 MG TABLET PO SCH (09:03)
[2021-04-08] MEDS: ASCORBIC ACID 500 MG TABLET PO SCH ×2 (09:03→21:03)
[2021-04-08] MEDS: AZITHROMYCIN INJ 500 MG in SODIUM CHLORIDE 0.9% 250 ML IV SCH (12:51)
[2021-04-08] MEDS: cefTRIAXone 1,000 MG in SODIUM CHLORIDE 0.9% 100 ML IV SCH (14:27)
[2021-04-08] MEDS: ATORVASTATIN 40 MG TABLET PO SCH ×2 (21:03→21:34)
[2021-04-08] MEDS: LOSARTAN 50 MG TABLET PO SCH (21:04)
[2021-04-09] MEDS: INSULIN LISPRO 100 UNIT/ML SUBCUT SCH ×4 (00:30→17:22)
[2021-04-09] MEDS: ALBUTEROL INHALER 18 GM INH SCH ×4 (00:30→18:14)
[2021-04-09 05:18] LABS: ABG Base Excess 3.9 MMOL/L (-2.5-2.5); ABG HCO3 27.9 MMOL/L (20-26); ABG Oxygen Saturation 98.7 % (95-100); ABG PCO2 37.2 MM HG (35-48); ABG PH 7.475 (7.35-7.45); ABG TCO2 22.7 MMOL/L (23-27)
[2021-04-09] MEDS: LORazepam 2 MG/1 ML VIAL IV PRN (06:07)
[2021-04-09] MEDS ORDERED: LORazepam 2 MG/1 ML VIAL IV ONE (06:56)
[2021-04-09] MEDS ORDERED: OLANZapine 10 MG VIAL IM ONE (07:34)
[2021-04-09 07:44] LABS: Albumin 2.8 G/DL (3.4-5.0); Bilirubin,Total 1.1 MG/DL (0.20-1.00); Calcium 9.1 MG/DL (8.5-10.1); Ferritin 2942.9 ng/mL (26-388); Osmolality,Calculated 283.5 MOS/KG (273-304); Potassium 4.2 MMOL/L (3.5-5.1); Total Protein 6.7 G/DL (6.4-8.2)
[2021-04-09 07:45] LABS: INR 2.9; PT Patient Result 30.1 SECS (10.5-12.0)
[2021-04-09] MEDS ORDERED: DIAZEPAM 10 MG/2 ML SYRINGE IV ONE (08:44)
[2021-04-09 08:57] LABS: Basophils % 0.2 % (0.0-0.8); Hematocrit 49.2 VOL% (42.0-52.0); Hemoglobin 15.7 GM/DL (14.0-18.0); Immature Granulocytes % 1.5 %; Lymphocytes # 0.7 10*3/uL (1.4-4.0); Lymphocytes % 5.6 % (21.2-54.2); Mean Corpuscular HGB Conc 31.9 GM/DL (32-36); Mean Corpuscular Volume 83.5 FL (87-102); Mean Platelet Volume 9.9 FL (9.6-12.0); Monocytes % 5.7 % (1.7-12.7); Platelet Count 223 T/CUMM (130-400); Red Blood Count 5.89 MC/CUMM (3.8-5.5); Red Cell Distribution Width 15.9 % (9.3-17.3); White Blood Count 13.3 T/CUMM (4-12)
[2021-04-09] MEDS: DEXAMETHASONE 10 MG/1 ML VIAL IV SCH (08:58)
[2021-04-09] MEDS ORDERED: DEXMEDETOMIDINE 200 MCG in SODIUM CHLORIDE 0.9% 48 ML IV PRN (09:00)
[2021-04-09] MEDS: REMDESIVIR 100 MG in SODIUM CHLORIDE 0.9% 100 ML IV SCH (09:01)
[2021-04-09] MEDS ORDERED: MORPHINE 2 MG/1 ML SYRINGE IV SCH (09:30)
[2021-04-09] MEDS ORDERED: ETOMIDATE 20 MG/10 ML VIAL IV ONE ×2 (09:42→09:51)
[2021-04-09] MEDS ORDERED: SUCCINYLCHOLINE 200 MG/10 ML VIAL ONE (09:43)
[2021-04-09] MEDS ORDERED: SUCCINYLCHOLINE 200 MG/10 ML VIAL IV ONE (09:52)
[2021-04-09] MEDS ORDERED: FUROSEMIDE 40 MG/4 ML VIAL IV ONE (10:01)
[2021-04-09] MEDS: CHOLECALCIFEROL 1,000 UNIT TABLET PO SCH (11:09)
[2021-04-09] MEDS: FAMOTIDINE 20 MG TABLET PO SCH ×2 (11:09→20:34)
[2021-04-09] MEDS: CETIRIZINE 10 MG TABLET PO SCH (11:09)
[2021-04-09] MEDS: ASCORBIC ACID 500 MG TABLET PO SCH ×2 (11:09→20:34)
[2021-04-09] MEDS: ZINC SULFATE 220 MG CAPSULE PO SCH (11:09)
[2021-04-09] MEDS: METOPROLOL TARTRATE 50 MG TABLET PO SCH ×3 (11:09→20:34)
[2021-04-09] MEDS: ESMOLOL 2,500 MG/250 ML PREMIX IV SCH (11:21)
[2021-04-09] MEDS: fentaNYL INJ 1,250 MCG in SODIUM CHLORIDE 0.9% 225 ML IV PRN (11:30)
[2021-04-09] MEDS: MIDAZOLAM 100 MG in SODIUM CHLORIDE 0.9% 80 ML IV PRN (11:30)
[2021-04-09] MEDS: AZITHROMYCIN INJ 500 MG in SODIUM CHLORIDE 0.9% 250 ML IV SCH (12:17)
[2021-04-09 14:05] LABS: ABG Base Excess 1.5 MMOL/L (-2.5-2.5); ABG HCO3 25.8 MMOL/L (20-26); ABG Oxygen Saturation 98.7 % (95-100); ABG PCO2 64.9 MM HG (35-48); ABG PH 7.282 (7.35-7.45); ABG TCO2 26.7 MMOL/L (23-27)
[2021-04-09] MEDS: cefTRIAXone 1,000 MG in SODIUM CHLORIDE 0.9% 100 ML IV SCH (14:08)
[2021-04-09] MEDS ORDERED: WARFARIN 5 MG TABLET NG ONE (18:00)
[2021-04-09] MEDS: LOSARTAN 50 MG TABLET PO SCH (18:14)
[2021-04-09] MEDS: ATORVASTATIN 40 MG TABLET PO SCH (20:34)
[2021-04-10] MEDS: INSULIN LISPRO 100 UNIT/ML SUBCUT SCH ×4 (00:06→17:27)
[2021-04-10] MEDS: ALBUTEROL INHALER 18 GM INH SCH ×4 (00:07→18:13)
[2021-04-10 06:09] LABS: ABG Base Excess 2.5 MMOL/L (-2.5-2.5); ABG HCO3 29.6 MMOL/L (20-26); ABG Oxygen Saturation 93.9 % (95-100); ABG PH 7.341 (7.35-7.45); ABG PO2 72.2 MM HG (80-95); ABG TCO2 31.3 MMOL/L (23-27)
[2021-04-10 06:20] LABS: INR 3.4; PT Patient Result 35.2 SECS (10.5-12.0)
[2021-04-10 06:28] LABS: Basophils % 0.3 % (0.0-0.8); Eosinophils % 0.1 % (0.00-10.9); Hemoglobin 14.4 GM/DL (14.0-18.0); Immature Granulocytes % 2.1 %; Immature Granulocytes Absolute 0.26 #; Lymphocytes # 0.6 10*3/uL (1.4-4.0); Mean Corpuscular HGB Conc 30.3 GM/DL (32-36); Mean Corpuscular Volume 88.1 FL (87-102); Mean Platelet Volume 10.2 FL (9.6-12.0); Neutrophils % 86.5 % (38.7-73.9); Platelet Count 162 T/CUMM (130-400); Red Blood Count 5.39 MC/CUMM (3.8-5.5); Red Cell Distribution Width 16.2 % (9.3-17.3); White Blood Count 12.3 T/CUMM (4-12)
[2021-04-10 06:30] LABS: Hematocrit 47.5 VOL% (42.0-52.0)
[2021-04-10 06:49] LABS: Albumin 2.6 G/DL (3.4-5.0); Bilirubin,Total 1.3 MG/DL (0.20-1.00); Calcium 8.1 MG/DL (8.5-10.1); Ferritin 2410.3 ng/mL (26-388); Osmolality,Calculated 294.7 MOS/KG (273-304); Potassium 4.2 MMOL/L (3.5-5.1); Total Protein 6.1 G/DL (6.4-8.2)
[2021-04-10 07:10] LABS: Elliptocytes 1+; Platelet Estimate Adequate
[2021-04-10 07:11] LABS: Poikilocytosis 1+
[2021-04-10] MEDS ORDERED: BARICITINIB 2 MG TABLET PO SCH (09:00)
[2021-04-10] MEDS: fentaNYL INJ 1,250 MCG in SODIUM CHLORIDE 0.9% 225 ML IV PRN (09:07)
[2021-04-10] MEDS: METOPROLOL TARTRATE 50 MG TABLET PO SCH (09:40)
[2021-04-10] MEDS: FAMOTIDINE 20 MG TABLET PO SCH ×2 (09:40→20:47)
[2021-04-10] MEDS: DEXAMETHASONE 10 MG/1 ML VIAL IV SCH (09:40)
[2021-04-10] MEDS: ASCORBIC ACID 500 MG TABLET PO SCH ×2 (09:40→20:47)
[2021-04-10] MEDS: CETIRIZINE 10 MG TABLET PO SCH (09:40)
[2021-04-10] MEDS: CHOLECALCIFEROL 1,000 UNIT TABLET PO SCH (09:40)
[2021-04-10] MEDS: ZINC SULFATE 220 MG CAPSULE PO SCH (09:41)
[2021-04-10] MEDS: ESMOLOL 2,500 MG/250 ML PREMIX IV SCH (11:30)
[2021-04-10] MEDS: cefTRIAXone 1,000 MG in SODIUM CHLORIDE 0.9% 100 ML IV SCH (14:18)
[2021-04-10] MEDS ORDERED: DEXTROSE 10% 250 ML BAG IV PRN (15:56)
[2021-04-10] MEDS: MIDAZOLAM 100 MG in SODIUM CHLORIDE 0.9% 80 ML IV PRN (16:44)
[2021-04-10] MEDS: FUROSEMIDE 40 MG/4 ML VIAL IV SCH (17:27)
[2021-04-10] MEDS: LOSARTAN 50 MG TABLET PO SCH (18:13)
[2021-04-10] MEDS: ATORVASTATIN 40 MG TABLET PO SCH (20:16)
[2021-04-10] MEDS: OLANZapine 5 MG TABLET PO SCH (20:47)
[2021-04-10] MEDS: ONDANSETRON 4 MG/2 ML VIAL IV PRN (23:46)
[2021-04-11] MEDS: INSULIN LISPRO 100 UNIT/ML SUBCUT SCH ×5 (00:14→23:56)
[2021-04-11] MEDS: ALBUTEROL INHALER 18 GM INH SCH ×4 (00:15→18:55)
[2021-04-11] MEDS: fentaNYL INJ 1,250 MCG in SODIUM CHLORIDE 0.9% 225 ML IV PRN (02:53)
[2021-04-11] MEDS: METOPROLOL TARTRATE 50 MG TABLET PO SCH ×2 (04:36→09:14)
[2021-04-11 05:12] LABS: ABG Base Excess 3.9 MMOL/L (-2.5-2.5); ABG HCO3 27.9 MMOL/L (20-26); ABG Oxygen Saturation 97.8 % (95-100); ABG PCO2 65.1 MM HG (35-48); ABG PH 7.308 (7.35-7.45); ABG TCO2 28.7 MMOL/L (23-27)
[2021-04-11 06:13] LABS: INR 3.4; PT Patient Result 34.5 SECS (10.5-12.0)
[2021-04-11 06:40] LABS: Ferritin 2043.9 ng/mL (26-388)
[2021-04-11 06:47] LABS: Basophils % 0.2 % (0.0-0.8); Eosinophils % 0.2 % (0.00-10.9); Hematocrit 44.9 VOL% (42.0-52.0); Hemoglobin 13.7 GM/DL (14.0-18.0); Immature Granulocytes % 2.4 %; Immature Granulocytes Absolute 0.25 #; Lymphocytes # 0.5 10*3/uL (1.4-4.0); Lymphocytes % 4.7 % (21.2-54.2); Mean Corpuscular HGB Conc 30.5 GM/DL (32-36); Mean Corpuscular Volume 88.7 FL (87-102); Mean Platelet Volume 10.6 FL (9.6-12.0); Monocytes % 5.7 % (1.7-12.7); Neutrophils % 86.8 % (38.7-73.9); Platelet Count 184 T/CUMM (130-400); Red Blood Count 5.06 MC/CUMM (3.8-5.5); Red Cell Distribution Width 16.1 % (9.3-17.3); White Blood Count 10.3 T/CUMM (4-12)
[2021-04-11 06:55] LABS: Calcium 8.1 MG/DL (8.5-10.1); Osmolality,Calculated 305.6 MOS/KG (273-304); Potassium 4.4 MMOL/L (3.5-5.1)
[2021-04-11 07:00] LABS: Hypochromia Slight; Lymphocytes 5 % (20-55); Microcytosis Slight; Platelet Estimate Adequate; Segmented Neutrophils 91 % (50-85); Total Cells Counted 100
[2021-04-11] MEDS: DEXAMETHASONE 10 MG/1 ML VIAL IV SCH (09:12)
[2021-04-11] MEDS: CHOLECALCIFEROL 1,000 UNIT TABLET PO SCH (09:13)
[2021-04-11] MEDS: FUROSEMIDE 40 MG/4 ML VIAL IV SCH (09:13)
[2021-04-11] MEDS: CETIRIZINE 10 MG TABLET PO SCH (09:13)
[2021-04-11] MEDS: ASCORBIC ACID 500 MG TABLET PO SCH ×2 (09:13→20:17)
[2021-04-11] MEDS: FAMOTIDINE 20 MG TABLET PO SCH ×2 (09:14→20:18)
[2021-04-11] MEDS: ZINC SULFATE 220 MG CAPSULE PO SCH (09:14)
[2021-04-11] MEDS: ESMOLOL 2,500 MG/250 ML PREMIX IV SCH (10:55)
[2021-04-11] MEDS: MIDAZOLAM 100 MG in SODIUM CHLORIDE 0.9% 80 ML IV PRN (12:52)
[2021-04-11] MEDS: cefTRIAXone 1,000 MG in SODIUM CHLORIDE 0.9% 100 ML IV SCH (15:01)
[2021-04-11] MEDS: LOSARTAN 50 MG TABLET PO SCH (18:22)
[2021-04-11] MEDS: OLANZapine 5 MG TABLET PO SCH (20:18)
[2021-04-12] MEDS: ALBUTEROL INHALER 18 GM INH SCH ×4 (00:01→18:03)
[2021-04-12] MEDS: fentaNYL INJ 1,250 MCG in SODIUM CHLORIDE 0.9% 225 ML IV PRN (01:45)
[2021-04-12] MEDS: ACETAMINOPHEN 325 MG TABLET PO PRN ×3 (01:57→22:43)
[2021-04-12] MEDS: METOPROLOL TARTRATE 50 MG TABLET PO SCH ×3 (02:44→20:15)
[2021-04-12] MEDS: INSULIN LISPRO 100 UNIT/ML SUBCUT SCH ×3 (06:16→18:02)
[2021-04-12 06:22] LABS: Calcium 8.1 MG/DL (8.5-10.1); Osmolality,Calculated 323.3 MOS/KG (273-304); Potassium 4.7 MMOL/L (3.5-5.1)
[2021-04-12 07:08] LABS: Basophils % 0.1 % (0.0-0.8); Eosinophils % 0.1 % (0.00-10.9); Hematocrit 45.9 VOL% (42.0-52.0); Hemoglobin 13.7 GM/DL (14.0-18.0); Immature Granulocytes % 2.3 %; Immature Granulocytes Absolute 0.24 #; Lymphocytes # 0.5 10*3/uL (1.4-4.0); Lymphocytes % 4.9 % (21.2-54.2); Mean Corpuscular HGB Conc 29.8 GM/DL (32-36); Mean Corpuscular Volume 89.5 FL (87-102); Mean Platelet Volume 10.5 FL (9.6-12.0); Monocytes % 6.1 % (1.7-12.7); Neutrophils % 86.5 % (38.7-73.9); Platelet Count 201 T/CUMM (130-400); Red Blood Count 5.13 MC/CUMM (3.8-5.5); Red Cell Distribution Width 15.9 % (9.3-17.3); White Blood Count 10.4 T/CUMM (4-12)
[2021-04-12 07:11] LABS: Band Neutrophils 1 % (0-10); Lymphocytes 1 % (20-55); Platelet Estimate Adequate; Segmented Neutrophils 97 % (50-85); Total Cells Counted 100
[2021-04-12 07:45] LABS: ABG Base Excess 2.7 MMOL/L (-2.5-2.5); ABG HCO3 26.8 MMOL/L (20-26); ABG Oxygen Saturation 98.5 % (95-100); ABG PH 7.266 (7.35-7.45); ABG TCO2 28.8 MMOL/L (23-27)
[2021-04-12 07:49] LABS: ABG PCO2 71.7 MM HG (35-48)
[2021-04-12] MEDS: ASCORBIC ACID 500 MG TABLET PO SCH ×2 (08:26→20:07)
[2021-04-12] MEDS: FAMOTIDINE 20 MG TABLET PO SCH ×2 (08:26→20:08)
[2021-04-12] MEDS: DEXAMETHASONE 10 MG/1 ML VIAL IV SCH (08:27)
[2021-04-12] MEDS: CETIRIZINE 10 MG TABLET PO SCH (08:27)
[2021-04-12] MEDS: CHOLECALCIFEROL 1,000 UNIT TABLET PO SCH (08:27)
[2021-04-12] MEDS: ZINC SULFATE 220 MG CAPSULE PO SCH (08:28)
[2021-04-12] MEDS: DEXTROSE 5% NACL 0.45% 1,000 ML IV SCH ×2 (09:40→23:15)
[2021-04-12 10:45] LABS: Bilirubin,Urine Negative (Negative); Blood, Urine Negative (Negative); Glucose,Urine (UA) 50 mg/dL (Negative); Ketones,Urine Negative (Negative); Mucus,Urine Occasional /LPF (Occasional); Nitrite,Urine Negative (Negative); Protein,Urine 30 MG/DL; RBC,Urine 4 /HPF (0-4); Squamous Epithelial Cell,Urine Occasional /HPF (0-10); Urine Appearance CLOUDY (Clear); Urine Color Amber (Yellow)
[2021-04-12 12:02] LABS: PT Patient Result 21.4 SECS (10.5-12.0)
[2021-04-12] MEDS: MIDAZOLAM 100 MG in SODIUM CHLORIDE 0.9% 80 ML IV PRN (12:25)
[2021-04-12] MEDS: cefTRIAXone 1,000 MG in SODIUM CHLORIDE 0.9% 100 ML IV SCH (14:27)
[2021-04-12] MEDS: HEPARIN DRIP 25,000 UNITS/500 ML PREMIX IV SCH (14:35)
[2021-04-12] MEDS: OLANZapine 5 MG TABLET PO SCH (20:08)
[2021-04-12] MEDS: ONDANSETRON 4 MG/2 ML VIAL IV PRN (22:55)
[2021-04-13] MEDS: INSULIN LISPRO 100 UNIT/ML SUBCUT SCH ×4 (00:08→18:20)
[2021-04-13] MEDS: ALBUTEROL INHALER 18 GM INH SCH ×4 (00:14→18:41)
[2021-04-13] MEDS: ACETAMINOPHEN 325 MG TABLET PO PRN ×2 (03:38→18:25)
[2021-04-13] MEDS: MIDAZOLAM 100 MG in SODIUM CHLORIDE 0.9% 80 ML IV PRN ×2 (03:45→22:05)
[2021-04-13 05:13] LABS: Basophils % 0.1 % (0.0-0.8); Eosinophils % 0.1 % (0.00-10.9); Hematocrit 43.3 VOL% (42.0-52.0); Hemoglobin 13.2 GM/DL (14.0-18.0); Immature Granulocytes Absolute 0.11 #; Lymphocytes # 0.4 10*3/uL (1.4-4.0); Lymphocytes % 3.4 % (21.2-54.2); Mean Corpuscular HGB Conc 30.5 GM/DL (32-36); Mean Platelet Volume 10.3 FL (9.6-12.0); Monocytes % 4.9 % (1.7-12.7); Neutrophils % 90.5 % (38.7-73.9); Platelet Count 203 T/CUMM (130-400); Red Blood Count 4.92 MC/CUMM (3.8-5.5); Red Cell Distribution Width 15.6 % (9.3-17.3); White Blood Count 11.2 T/CUMM (4-12)
[2021-04-13 05:22] LABS: ABG Base Excess 1.2 MMOL/L (-2.5-2.5); ABG HCO3 28.4 MMOL/L (20-26); ABG Oxygen Saturation 96.1 % (95-100); ABG PCO2 55.2 MM HG (35-48); ABG PO2 83.4 MM HG (80-95); ABG TCO2 30.1 MMOL/L (23-27)
[2021-04-13 05:24] LABS: INR 2.1
[2021-04-13 05:25] LABS: PT Patient Result 22.4 SECS (10.5-12.0)
[2021-04-13 05:32] LABS: Band Neutrophils 13 % (0-10); Hypochromia 1+; Lymphocytes 3 % (20-55); Segmented Neutrophils 79 % (50-85); Total Cells Counted 100
[2021-04-13 05:33] LABS: Microcytosis 1+; Ovalocytes Slight; Platelet Estimate Normal
[2021-04-13 05:34] LABS: Calcium 8.4 MG/DL (8.5-10.1); Osmolality,Calculated 324.7 MOS/KG (273-304); Potassium 4.7 MMOL/L (3.5-5.1)
[2021-04-13 05:50] LABS: Ferritin 2837.8 ng/mL (26-388)
[2021-04-13] MEDS: HEPARIN DRIP 25,000 UNITS/500 ML PREMIX IV SCH (08:11)
[2021-04-13] MEDS: ASCORBIC ACID 500 MG TABLET PO SCH ×2 (08:47→21:23)
[2021-04-13] MEDS: METOPROLOL TARTRATE 50 MG TABLET PO SCH (08:47)
[2021-04-13] MEDS: FAMOTIDINE 20 MG TABLET PO SCH ×2 (08:47→21:22)
[2021-04-13] MEDS: CETIRIZINE 10 MG TABLET PO SCH (08:47)
[2021-04-13] MEDS: CHOLECALCIFEROL 1,000 UNIT TABLET PO SCH (08:47)
[2021-04-13] MEDS: DEXAMETHASONE 10 MG/1 ML VIAL IV SCH (08:48)
[2021-04-13] MEDS: ZINC SULFATE 220 MG CAPSULE PO SCH (08:48)
[2021-04-13] MEDS: fentaNYL INJ 1,250 MCG in SODIUM CHLORIDE 0.9% 225 ML IV PRN (09:16)
[2021-04-13] MEDS: SODIUM CHLORIDE 0.45% 1,000 ML IV SCH (12:05)
[2021-04-13] MEDS: FLUCONAZOLE INJ 200 MG/100 ML PREMIX IV SCH (12:12)
[2021-04-13] MEDS: cefTRIAXone 1,000 MG in SODIUM CHLORIDE 0.9% 100 ML IV SCH (14:39)
[2021-04-13] MEDS: OLANZapine 5 MG TABLET PO SCH (21:22)
[2021-04-13] MEDS: METOPROLOL TARTRATE 25 MG TABLET PO SCH (21:23)
[2021-04-14] MEDS: ACETAMINOPHEN 325 MG TABLET PO PRN (00:13)
[2021-04-14] MEDS: INSULIN LISPRO 100 UNIT/ML SUBCUT SCH ×5 (00:14→23:35)
[2021-04-14] MEDS: ALBUTEROL INHALER 18 GM INH SCH ×4 (00:15→19:00)
[2021-04-14] MEDS: SODIUM CHLORIDE 0.45% 1,000 ML IV SCH ×3 (01:30→19:18)
[2021-04-14 04:02] LABS: ABG Base Excess 3.7 MMOL/L (-2.5-2.5); ABG HCO3 27.7 MMOL/L (20-26); ABG Oxygen Saturation 96.6 % (95-100); ABG PCO2 58.9 MM HG (35-48); ABG PH 7.338 (7.35-7.45); ABG PO2 91.6 MM HG (80-95); ABG TCO2 27.4 MMOL/L (23-27)
[2021-04-14] MEDS: HEPARIN DRIP 25,000 UNITS/500 ML PREMIX IV SCH ×3 (04:25→21:56)
[2021-04-14 05:25] LABS: Basophils % 0.2 % (0.0-0.8); Hematocrit 43.9 VOL% (42.0-52.0); Hemoglobin 13.4 GM/DL (14.0-18.0); Immature Granulocytes % 0.6 %; Immature Granulocytes Absolute 0.07 #; Lymphocytes # 0.3 10*3/uL (1.4-4.0); Lymphocytes % 2.3 % (21.2-54.2); Mean Corpuscular HGB Conc 30.5 GM/DL (32-36); Mean Corpuscular Volume 87.5 FL (87-102); Mean Platelet Volume 11.3 FL (9.6-12.0); Monocytes % 2.5 % (1.7-12.7); NRBC # 0.02 10*3/uL; Neutrophils % 94.4 % (38.7-73.9); Platelet Count 244 T/CUMM (130-400); Red Blood Count 5.02 MC/CUMM (3.8-5.5); Red Cell Distribution Width 15.5 % (9.3-17.3); White Blood Count 11.9 T/CUMM (4-12)
[2021-04-14 05:33] LABS: INR 1.7; PT Patient Result 18.1 SECS (10.5-12.0)
[2021-04-14 05:54] LABS: Calcium 8.7 MG/DL (8.5-10.1); Osmolality,Calculated 316.8 MOS/KG (273-304); Potassium 5.1 MMOL/L (3.5-5.1)
[2021-04-14 06:01] LABS: Band Neutrophils 9 % (0-10); Lymphocytes 3 % (20-55); Platelet Estimate Adequate; Segmented Neutrophils 83 % (50-85); Total Cells Counted 100
[2021-04-14 06:10] LABS: Ferritin 3819.7 ng/mL (26-388)
[2021-04-14] MEDS ORDERED: INSULIN GLARGINE 100 UNIT/ML SUBCUT SCH (09:00)
[2021-04-14] MEDS: DEXAMETHASONE 10 MG/1 ML VIAL IV SCH (09:08)
[2021-04-14] MEDS: METOPROLOL TARTRATE 25 MG TABLET PO SCH (09:09)
[2021-04-14] MEDS: ZINC SULFATE 220 MG CAPSULE PO SCH (09:09)
[2021-04-14] MEDS: ASCORBIC ACID 500 MG TABLET PO SCH ×2 (09:09→21:03)
[2021-04-14] MEDS: FAMOTIDINE 20 MG TABLET PO SCH ×2 (09:09→21:04)
[2021-04-14] MEDS: INSULIN GLARGINE 100 UNIT/ML SUBCUT SCH (09:10)
[2021-04-14] MEDS: CETIRIZINE 10 MG TABLET PO SCH (09:24)
[2021-04-14] MEDS: CHOLECALCIFEROL 1,000 UNIT TABLET PO SCH (09:24)
[2021-04-14] MEDS ORDERED: DILTIAZEM 50 MG/10 ML VIAL IV ONE ×2 (11:49→12:31)
[2021-04-14] MEDS ORDERED: DILTIAZEM 25 MG/5 ML VIAL IV ONE ×2 (11:51→12:33)
[2021-04-14] MEDS ORDERED: DILTIAZEM INJ 100 MG in SODIUM CHLORIDE 0.9% 100 ML IV SCH ×2 (12:00→13:06)
[2021-04-14] MEDS: methylPREDNISolone SOD SUC 40 MG/1 ML VIAL IV SCH ×2 (12:20→21:42)
[2021-04-14 12:26] LABS: Calcium 8.9 MG/DL (8.5-10.1); Osmolality,Calculated 311.3 MOS/KG (273-304); Potassium 5.3 MMOL/L (3.5-5.1)
[2021-04-14] MEDS: DOCUSATE SODIUM 100 MG/10 ML UDCUP PO SCH ×2 (12:35→21:04)
[2021-04-14] MEDS: POLYETHYLENE GLYCOL POWDER 17 GM PACK PO SCH (13:21)
[2021-04-14] MEDS: FLUCONAZOLE INJ 200 MG/100 ML PREMIX IV SCH (13:23)
[2021-04-14] MEDS ORDERED: AMIODARONE INJ 150 MG in DEXTROSE 5% 100 ML IV ONE (13:48)
[2021-04-14] MEDS ORDERED: AMIODARONE 150 MG/3 ML VIAL ONE (13:58)
[2021-04-14] MEDS ORDERED: AMIODARONE INJ 450 MG in DEXTROSE 5% 241 ML IV SCH (14:00)
[2021-04-14] MEDS: MIDAZOLAM 100 MG in SODIUM CHLORIDE 0.9% 80 ML IV PRN (14:12)
[2021-04-14] MEDS: fentaNYL INJ 1,250 MCG in SODIUM CHLORIDE 0.9% 225 ML IV PRN (14:13)
[2021-04-14] MEDS: SODIUM ZIRCONIUM CYCLOSILICATE 10 GM PACK PO SCH (14:26)
[2021-04-14 15:02] LABS: Potassium 5.6 MMOL/L (3.5-5.1)
[2021-04-14] MEDS ORDERED: PHENYLEPHRINE DRIP 40 MG/250 ML PREMIX IV PRN (15:39)
[2021-04-14] MEDS ORDERED: DIGOXIN 0.5 MG/2 ML AMP IV ONE ×2 (15:40→19:00)
[2021-04-14 17:40] LABS: Calcium 8.4 MG/DL (8.5-10.1); Potassium 5.7 MMOL/L (3.5-5.1)
[2021-04-14] MEDS ORDERED: INSULIN REGULAR 10 UNIT, CALCIUM GLUCONATE 1,000 MG in DEXTROSE 10% 250 ML IV ONE (17:53)
[2021-04-14] MEDS: cefTRIAXone 1,000 MG in SODIUM CHLORIDE 0.9% 100 ML IV SCH (19:15)
[2021-04-14 19:39] LABS: Basophils % 0.3 % (0.0-0.8); Hematocrit 44.2 VOL% (42.0-52.0); Hemoglobin 13.5 GM/DL (14.0-18.0); Immature Granulocytes % 0.9 %; Immature Granulocytes Absolute 0.13 #; Lymphocytes # 0.4 10*3/uL (1.4-4.0); Lymphocytes % 2.5 % (21.2-54.2); Mean Corpuscular HGB Conc 30.5 GM/DL (32-36); Mean Corpuscular Volume 87.4 FL (87-102); Mean Platelet Volume 11.8 FL (9.6-12.0); Neutrophils % 94.3 % (38.7-73.9); Platelet Count 256 T/CUMM (130-400); Red Blood Count 5.06 MC/CUMM (3.8-5.5); Red Cell Distribution Width 15.8 % (9.3-17.3); White Blood Count 14.3 T/CUMM (4-12)
[2021-04-14 20:12] LABS: Band Neutrophils 4 % (0-10); Lymphocytes 2 % (20-55); Platelet Estimate Normal; Segmented Neutrophils 92 % (50-85); Total Cells Counted 100
[2021-04-14] MEDS: OLANZapine 5 MG TABLET PO SCH (21:03)
[2021-04-14] MEDS: METOPROLOL TARTRATE 50 MG TABLET PO SCH (21:04)
[2021-04-14] MEDS: AMIODARONE INJ 450 MG in DEXTROSE 5% 241 ML IV SCH (21:46)
[2021-04-14 23:21] LABS: Calcium 8.5 MG/DL (8.5-10.1); Osmolality,Calculated 316.4 MOS/KG (273-304); Potassium 5.4 MMOL/L (3.5-5.1)
[2021-04-15] MEDS: ALBUTEROL INHALER 18 GM INH SCH ×4 (02:22→18:10)
[2021-04-15 03:57] LABS: ABG Base Excess 4.5 MMOL/L (-2.5-2.5); ABG HCO3 28.4 MMOL/L (20-26); ABG Oxygen Saturation 97.8 % (95-100); ABG PCO2 49.6 MM HG (35-48); ABG PH 7.397 (7.35-7.45); ABG TCO2 26.5 MMOL/L (23-27)
[2021-04-15 04:08] LABS: Basophils % 0.2 % (0.0-0.8); Hematocrit 42.2 VOL% (42.0-52.0); Hemoglobin 12.8 GM/DL (14.0-18.0); Immature Granulocytes % 0.7 %; Immature Granulocytes Absolute 0.11 #; Lymphocytes # 0.3 10*3/uL (1.4-4.0); Mean Corpuscular HGB Conc 30.3 GM/DL (32-36); Mean Corpuscular Volume 87.7 FL (87-102); Monocytes % 2.9 % (1.7-12.7); Neutrophils % 94.2 % (38.7-73.9); Platelet Count 250 T/CUMM (130-400); Red Blood Count 4.81 MC/CUMM (3.8-5.5); Red Cell Distribution Width 15.5 % (9.3-17.3); White Blood Count 14.8 T/CUMM (4-12)
[2021-04-15 04:22] LABS: Calcium 8.6 MG/DL (8.5-10.1); Osmolality,Calculated 319.8 MOS/KG (273-304); Potassium 5.3 MMOL/L (3.5-5.1)
[2021-04-15 04:31] LABS: Band Neutrophils 2 % (0-10); Lymphocytes 4 % (20-55); Platelet Estimate Adequate; Segmented Neutrophils 91 % (50-85); Total Cells Counted 100
[2021-04-15 04:32] LABS: INR 1.4; PT Patient Result 15.3 SECS (10.5-12.0)
[2021-04-15] MEDS: INSULIN LISPRO 100 UNIT/ML SUBCUT SCH ×4 (05:42→23:46)
[2021-04-15] MEDS: MIDAZOLAM 100 MG in SODIUM CHLORIDE 0.9% 80 ML IV PRN (07:01)
[2021-04-15] MEDS ORDERED: SODIUM CHLORIDE 0.45% 1,000 ML IV SCH (09:30)
[2021-04-15] MEDS: METOPROLOL TARTRATE 50 MG TABLET PO SCH ×2 (09:46→22:17)
[2021-04-15] MEDS: methylPREDNISolone SOD SUC 40 MG/1 ML VIAL IV SCH ×2 (09:48→22:17)
[2021-04-15] MEDS ORDERED: MIDAZOLAM 2 MG/2 ML VIAL ONE (10:12)
[2021-04-15] MEDS ORDERED: ROCURONIUM 50 MG/5 ML VIAL IV ONE ×2 (10:12→11:59)
[2021-04-15] MEDS: SODIUM ZIRCONIUM CYCLOSILICATE 10 GM PACK PO SCH ×2 (10:49→22:17)
[2021-04-15] MEDS: POLYETHYLENE GLYCOL POWDER 17 GM PACK PO SCH (10:49)
[2021-04-15] MEDS: INSULIN GLARGINE 100 UNIT/ML SUBCUT SCH (10:49)
[2021-04-15] MEDS: DOCUSATE SODIUM 100 MG/10 ML UDCUP PO SCH ×2 (10:49→22:17)
[2021-04-15] MEDS: FAMOTIDINE 20 MG TABLET PO SCH ×2 (10:50→22:16)
[2021-04-15] MEDS: CHOLECALCIFEROL 1,000 UNIT TABLET PO SCH (10:50)
[2021-04-15] MEDS: ZINC SULFATE 220 MG CAPSULE PO SCH (10:50)
[2021-04-15] MEDS ORDERED: PHENYLEPHRINE 10 MG/1 ML VIAL IV ONE (10:50)
[2021-04-15] MEDS: CETIRIZINE 10 MG TABLET PO SCH (10:50)
[2021-04-15] MEDS: ASCORBIC ACID 500 MG TABLET PO SCH ×2 (10:50→22:16)
[2021-04-15] MEDS ORDERED: fentaNYL 100 MCG/2 ML VIAL ONE (11:00)
[2021-04-15] MEDS ORDERED: INSULIN GLARGINE 100 UNIT/ML SUBCUT ONE (11:33)
[2021-04-15] MEDS ORDERED: CALCIUM CHLORIDE 1,000 MG/10 ML VIAL IV ONE (11:39)
[2021-04-15] MEDS ORDERED: SEVOFLURANE 1 UNIT/15 MINUTE INH ONE ×5 (11:39)
[2021-04-15] MEDS ORDERED: SODIUM CHLORIDE 0.9% 250 ML IV ONE (11:48)
[2021-04-15] MEDS ORDERED: LACTATED RINGERS 1,000 ML IV ONE (11:57)
[2021-04-15] MEDS: AMIODARONE INJ 450 MG in DEXTROSE 5% 241 ML IV SCH ×2 (12:15→12:45)
[2021-04-15] MEDS ORDERED: MINERAL OIL/PETROLATUM OPH OINT 3.5 GM TUBE ONE (12:25)
[2021-04-15 14:31] LABS: Blood Urea Nitrogen 71 MG/DL (7-18); Calcium 9.4 MG/DL (8.5-10.1); Carbon Dioxide 29 MMOL/L (21-32); Estimated Glom Filtration Rate 95 ML/MIN; Glucose 307 MG/DL (74-106); Osmolality,Calculated 311.4 MOS/KG (273-304); Potassium 5.8 MMOL/L (3.5-5.1); Sodium 140 MMOL/L (136-145)
[2021-04-15] MEDS ORDERED: METOPROLOL TARTRATE 5 MG/5 ML VIAL IV ONE ×2 (14:34→14:37)
[2021-04-15] MEDS: HEPARIN DRIP 25,000 UNITS/500 ML PREMIX IV SCH ×2 (14:35→22:43)
[2021-04-15] MEDS: FLUCONAZOLE INJ 200 MG/100 ML PREMIX IV SCH (14:45)
[2021-04-15 14:48] LABS: Basophils # 0.1 10*3/uL (0.0-0.2); Basophils % 0.3 % (0.0-0.8); Hematocrit 49.2 VOL% (42.0-52.0); Hemoglobin 14.7 GM/DL (14.0-18.0); Immature Granulocytes % 0.8 %; Immature Granulocytes Absolute 0.16 #; Lymphocytes # 0.4 10*3/uL (1.4-4.0); Lymphocytes % 2.3 % (21.2-54.2); Mean Corpuscular HGB Conc 29.9 GM/DL (32-36); Mean Platelet Volume 11.6 FL (9.6-12.0); Monocytes % 4.5 % (1.7-12.7); Neutrophils % 92.1 % (38.7-73.9); Platelet Count 338 T/CUMM (130-400); Red Blood Count 5.59 MC/CUMM (3.8-5.5); Red Cell Distribution Width 15.7 % (9.3-17.3); White Blood Count 19.1 T/CUMM (4-12)
[2021-04-15] MEDS ORDERED: INSULIN REGULAR 10 UNIT, CALCIUM GLUCONATE 1,000 MG in DEXTROSE 10% 250 ML IV ONE ×2 (14:53→21:52)
[2021-04-15 14:54] LABS: Band Neutrophils 7 % (0-10); Segmented Neutrophils 88 % (50-85); Total Cells Counted 100
[2021-04-15 14:55] LABS: Burr Cells Few; Poikilocytosis Few
[2021-04-15 14:56] LABS: Anisocytosis Slight; Atypical Lymphocytes Few; Hypochromia 1+; Microcytosis Slight; Platelet Estimate Normal
[2021-04-15] MEDS ORDERED: SODIUM CHLORIDE 0.9% 1,000 ML IV ONE ×2 (18:00→20:13)
[2021-04-15 21:01] LABS: Calcium 8.1 MG/DL (8.5-10.1)
[2021-04-15 21:04] LABS: Potassium 6.3 MMOL/L (3.5-5.1)
[2021-04-15] MEDS: OLANZapine 5 MG TABLET PO SCH (22:16)
[2021-04-15] MEDS: ACETAMINOPHEN 325 MG TABLET PO PRN (23:46)
[2021-04-16] MEDS: ALBUTEROL INHALER 18 GM INH SCH ×4 (01:00→18:35)
[2021-04-16 04:23] LABS: ABG Base Excess -1.4 MMOL/L (-2.5-2.5); ABG HCO3 23.2 MMOL/L (20-26); ABG PCO2 50.6 MM HG (35-48); ABG PH 7.314 (7.35-7.45); ABG PO2 87.2 MM HG (80-95); ABG TCO2 22.2 MMOL/L (23-27)
[2021-04-16] MEDS: MIDAZOLAM 100 MG in SODIUM CHLORIDE 0.9% 80 ML IV PRN (04:27)
[2021-04-16] MEDS: AMIODARONE INJ 450 MG in DEXTROSE 5% 241 ML IV SCH ×2 (04:27→17:48)
[2021-04-16 04:48] LABS: Calcium 8.5 MG/DL (8.5-10.1); INR 1.4; Osmolality,Calculated 316.7 MOS/KG (273-304); PT Patient Result 15.1 SECS (10.5-12.0)
[2021-04-16 04:55] LABS: Potassium 6.5 MMOL/L (3.5-5.1)
[2021-04-16 04:56] LABS: Basophils # 0.1 10*3/uL (0.0-0.2); Basophils % 0.3 % (0.0-0.8); Hematocrit 46.7 VOL% (42.0-52.0); Immature Granulocytes % 1.2 %; Immature Granulocytes Absolute 0.23 #; Lymphocytes # 0.5 10*3/uL (1.4-4.0); Lymphocytes % 2.6 % (21.2-54.2); Mean Corpuscular HGB Conc 30.2 GM/DL (32-36); Mean Corpuscular Volume 88.6 FL (87-102); Mean Platelet Volume 11.8 FL (9.6-12.0); Monocytes % 4.7 % (1.7-12.7); NRBC # 0.03 10*3/uL; Neutrophils % 91.2 % (38.7-73.9); Platelet Count 314 T/CUMM (130-400); Red Blood Count 5.27 MC/CUMM (3.8-5.5); Red Cell Distribution Width 15.9 % (9.3-17.3); White Blood Count 19.1 T/CUMM (4-12)
[2021-04-16 04:57] LABS: Hemoglobin 14.1 GM/DL (14.0-18.0)
[2021-04-16 05:01] LABS: Lymphocytes 6 % (20-55); Segmented Neutrophils 93 % (50-85); Total Cells Counted 100
[2021-04-16 05:02] LABS: Platelet Estimate Increased
[2021-04-16] MEDS: ACETAMINOPHEN 325 MG TABLET PO PRN (05:26)
[2021-04-16] MEDS: INSULIN LISPRO 100 UNIT/ML SUBCUT SCH ×4 (05:26→21:51)
[2021-04-16] MEDS ORDERED: INSULIN REGULAR 10 UNIT, CALCIUM GLUCONATE 1,000 MG in DEXTROSE 10% 250 ML IV ONE ×2 (06:15→14:40)
[2021-04-16] MEDS ORDERED: SODIUM CHLORIDE 0.9% 1,000 ML IV ONE (07:37)
[2021-04-16] MEDS ORDERED: ALBUMIN 25% 12.5 GM/50 ML VIAL IV ONE (07:48)
[2021-04-16] MEDS ORDERED: CALCIUM GLUCONATE RIDER 1,000 MG/50 ML PREMIX IV ONE (07:51)
[2021-04-16] MEDS: SODIUM ZIRCONIUM CYCLOSILICATE 10 GM PACK PO SCH ×2 (08:57→21:44)
[2021-04-16] MEDS: POLYETHYLENE GLYCOL POWDER 17 GM PACK PO SCH (08:57)
[2021-04-16] MEDS: DOCUSATE SODIUM 100 MG/10 ML UDCUP PO SCH ×2 (08:57→21:44)
[2021-04-16] MEDS: METOPROLOL TARTRATE 50 MG TABLET PO SCH ×2 (08:57→21:44)
[2021-04-16] MEDS: ZINC SULFATE 220 MG CAPSULE PO SCH (08:58)
[2021-04-16] MEDS: CETIRIZINE 10 MG TABLET PO SCH (08:58)
[2021-04-16] MEDS: CHOLECALCIFEROL 1,000 UNIT TABLET PO SCH (08:58)
[2021-04-16] MEDS: FAMOTIDINE 20 MG TABLET PO SCH (08:58)
[2021-04-16] MEDS: ASCORBIC ACID 500 MG TABLET PO SCH ×2 (08:58→21:44)
[2021-04-16] MEDS ORDERED: SODIUM POLYSTYRENE SULFATE 15 GM/60 ML BOTTLE RECTAL ONE ×2 (08:59→21:49)
[2021-04-16] MEDS ORDERED: INSULIN GLARGINE 100 UNIT/ML SUBCUT SCH (09:00)
[2021-04-16] MEDS ORDERED: SODIUM POLYSTYRENE SULFATE 15 GM/60 ML BOTTLE ONE (09:08)
[2021-04-16] MEDS ORDERED: SODIUM CHLORIDE 0.9% 1,000 ML IV SCH ×2 (10:00→10:30)
[2021-04-16] MEDS ORDERED: MEROPENEM 500 MG in SODIUM CHLORIDE 0.9% 100 ML IV SCH (10:00)
[2021-04-16] MEDS: ALBUMIN 25% 25 GM/100 ML VIAL IV SCH ×2 (10:01→17:50)
[2021-04-16] MEDS: methylPREDNISolone SOD SUC 40 MG/1 ML VIAL IV SCH ×2 (10:01→21:51)
[2021-04-16] MEDS ORDERED: INSULIN GLARGINE 100 UNIT/ML SUBCUT ONE (10:37)
[2021-04-16] MEDS ORDERED: VANCOMYCIN INJ 2,000 MG in SODIUM CHLORIDE 0.9% 500 ML IV ONE (11:00)
[2021-04-16 11:08] LABS: Albumin 1.2 G/DL (3.4-5.0); Bilirubin,Total 1.2 MG/DL (0.20-1.00); Calcium 8.6 MG/DL (8.5-10.1); Osmolality,Calculated 320.4 MOS/KG (273-304); Potassium 5.9 MMOL/L (3.5-5.1); Total Protein 5.4 G/DL (6.4-8.2)
[2021-04-16] MEDS ORDERED: VANCOMYCIN INJ 2,000 MG in SODIUM CHLORIDE 0.9% 500 ML IV PRN (11:27)
[2021-04-16 11:55] LABS: Amorphous Crystals,Urine Occasional /HPF (Few); Bilirubin,Urine Negative (Negative); Blood, Urine Moderate mg/dL (Negative); Glucose,Urine (UA) 50 mg/dL (Negative); Ketones,Urine Negative (Negative); Mucus,Urine Occasional /LPF (Occasional); Nitrite,Urine Negative (Negative); Protein,Urine 30 MG/DL; RBC,Urine 65 /HPF (0-4); Red Blood Cell Casts,Urine 6 /LPF (<1); Squamous Epithelial Cell,Urine Occasional /HPF (0-10); Urine Appearance CLOUDY (Clear); Urine Color Amber (Yellow); Urine Specific Gravity 1.025 (1.001-1.035)
[2021-04-16] MEDS: FLUCONAZOLE INJ 200 MG/100 ML PREMIX IV SCH (12:28)
[2021-04-16] MEDS: metroNIDAZOLE INJ 500 MG/100 ML PREMIX IV SCH ×2 (13:42→21:52)
[2021-04-16] MEDS: LEVOFLOXACIN INJ 750 MG/150 ML PREMIX IV SCH (13:43)
[2021-04-16 14:27] LABS: Calcium 7.7 MG/DL (8.5-10.1); Osmolality,Calculated 326.1 MOS/KG (273-304)
[2021-04-16] MEDS: HEPARIN DRIP 25,000 UNITS/500 ML PREMIX IV SCH (14:27)
[2021-04-16] MEDS ORDERED: [UNRECOGNIZED DRUG - OTHER] IV SCH (17:00)
[2021-04-16] MEDS ORDERED: MULTIVITAMIN IV SCH (17:00)
[2021-04-16] MEDS ORDERED: DEXTROSE 10% 1,000 ML IV PRN (17:00)
[2021-04-16] MEDS ORDERED: AMINO ACIDS IV SCH (17:00)
[2021-04-16] MEDS ORDERED: INSULIN REGULAR IV SCH (17:00)
[2021-04-16 21:22] LABS: Calcium 7.5 MG/DL (8.5-10.1)
[2021-04-16] MEDS: OLANZapine 5 MG TABLET PO SCH (21:44)
[2021-04-16] MEDS: PANTOPRAZOLE 40 MG VIAL IV SCH (21:51)
[2021-04-17] MEDS: MIDAZOLAM 100 MG in SODIUM CHLORIDE 0.9% 80 ML IV PRN (00:06)
[2021-04-17] MEDS: INSULIN LISPRO 100 UNIT/ML SUBCUT SCH ×9 (00:15→23:47)
[2021-04-17] MEDS: ALBUMIN 25% 25 GM/100 ML VIAL IV SCH (01:55)
[2021-04-17] MEDS: ALBUTEROL INHALER 18 GM INH SCH ×4 (02:40→19:03)
[2021-04-17 04:44] LABS: Basophils % 0.1 % (0.0-0.8); Hematocrit 32.5 VOL% (42.0-52.0); Hemoglobin 9.8 GM/DL (14.0-18.0); Immature Granulocytes % 1.1 %; Immature Granulocytes Absolute 0.15 #; Lymphocytes # 0.4 10*3/uL (1.4-4.0); Lymphocytes % 2.7 % (21.2-54.2); Mean Corpuscular HGB Conc 30.2 GM/DL (32-36); Mean Corpuscular Volume 90.3 FL (87-102); Mean Platelet Volume 11.5 FL (9.6-12.0); Neutrophils % 91.1 % (38.7-73.9); Platelet Count 176 T/CUMM (130-400); Red Cell Distribution Width 15.9 % (9.3-17.3); White Blood Count 14.1 T/CUMM (4-12)
[2021-04-17] MEDS: metroNIDAZOLE INJ 500 MG/100 ML PREMIX IV SCH ×3 (04:50→21:00)
[2021-04-17 04:54] LABS: Osmolality,Calculated 330.8 MOS/KG (273-304); Potassium 5.5 MMOL/L (3.5-5.1)
[2021-04-17 05:00] LABS: INR 1.3; PT Patient Result 14.7 SECS (10.5-12.0)
[2021-04-17 05:04] LABS: ABG Base Excess -2.8 MMOL/L (-2.5-2.5); ABG HCO3 22.1 MMOL/L (20-26); ABG Oxygen Saturation 97.7 % (95-100); ABG PCO2 57.9 MM HG (35-48); ABG PH 7.248 (7.35-7.45); ABG TCO2 23.4 MMOL/L (23-27)
[2021-04-17] MEDS: HEPARIN DRIP 25,000 UNITS/500 ML PREMIX IV SCH ×2 (05:33→21:41)
[2021-04-17 05:37] LABS: Band Neutrophils 6 % (0-10); Lymphocytes 3 % (20-55); Segmented Neutrophils 86 % (50-85); Total Cells Counted 100
[2021-04-17 05:38] LABS: Hypochromia 1+; Microcytosis 1+; Ovalocytes Slight
[2021-04-17] MEDS ORDERED: INSULIN GLARGINE 100 UNIT/ML SUBCUT SCH (09:00)
[2021-04-17] MEDS ORDERED: INSULIN REGULAR 100 UNIT/ML IV ONE (09:03)
[2021-04-17] MEDS ORDERED: CALCIUM GLUCONATE RIDER 1,000 MG/50 ML PREMIX IV ONE (09:03)
[2021-04-17] MEDS: INSULIN GLARGINE 100 UNIT/ML SUBCUT SCH (09:23)
[2021-04-17] MEDS: ZINC SULFATE 220 MG CAPSULE PO SCH (09:35)
[2021-04-17] MEDS: SODIUM ZIRCONIUM CYCLOSILICATE 10 GM PACK PO SCH (09:35)
[2021-04-17] MEDS: CETIRIZINE 10 MG TABLET PO SCH (09:35)
[2021-04-17] MEDS: DOCUSATE SODIUM 100 MG/10 ML UDCUP PO SCH (09:35)
[2021-04-17] MEDS: POLYETHYLENE GLYCOL POWDER 17 GM PACK PO SCH (09:35)
[2021-04-17] MEDS: CHOLECALCIFEROL 1,000 UNIT TABLET PO SCH (09:35)
[2021-04-17] MEDS: PANTOPRAZOLE 40 MG VIAL IV SCH ×2 (09:40→20:58)
[2021-04-17] MEDS: methylPREDNISolone SOD SUC 40 MG/1 ML VIAL IV SCH ×2 (09:42→20:59)
[2021-04-17] MEDS: SODIUM CHLORIDE 0.9% 1,000 ML IV SCH ×3 (11:55→21:56)
[2021-04-17 12:29] LABS: Calcium 8.3 MG/DL (8.5-10.1); Osmolality,Calculated 335.7 MOS/KG (273-304); Potassium 5.3 MMOL/L (3.5-5.1)
[2021-04-17] MEDS ORDERED: INSULIN REGULAR IV SCH (17:00)
[2021-04-17] MEDS ORDERED: [UNRECOGNIZED DRUG - OTHER] IV SCH (17:00)
[2021-04-17] MEDS ORDERED: AMINO ACIDS 10% IV SCH (17:00)
[2021-04-17] MEDS ORDERED: MULTIVITAMIN IV SCH (17:00)
[2021-04-17] MEDS: fentaNYL INJ 1,250 MCG in SODIUM CHLORIDE 0.9% 225 ML IV PRN (22:31)
[2021-04-18 00:50] LABS: Basophils % 0.1 % (0.0-0.8); Hematocrit 30.1 VOL% (42.0-52.0); Hemoglobin 9.1 GM/DL (14.0-18.0); Immature Granulocytes % 1.4 %; Immature Granulocytes Absolute 0.18 #; Lymphocytes # 0.3 10*3/uL (1.4-4.0); Lymphocytes % 2.1 % (21.2-54.2); Mean Corpuscular HGB Conc 30.2 GM/DL (32-36); Mean Corpuscular Volume 90.9 FL (87-102); Mean Platelet Volume 11.4 FL (9.6-12.0); Monocytes % 4.4 % (1.7-12.7); Platelet Count 160 T/CUMM (130-400); Red Blood Count 3.31 MC/CUMM (3.8-5.5); Red Cell Distribution Width 15.8 % (9.3-17.3); White Blood Count 12.7 T/CUMM (4-12)
[2021-04-18 01:21] LABS: Band Neutrophils 2 % (0-10); Hypochromia Slight; Lymphocytes 2 % (20-55); Platelet Estimate Normal; Segmented Neutrophils 94 % (50-85); Total Cells Counted 100
[2021-04-18 03:13] LABS: ABG Base Excess -3.5 MMOL/L (-2.5-2.5); ABG HCO3 21.5 MMOL/L (20-26); ABG Oxygen Saturation 98.5 % (95-100); ABG PCO2 60.1 MM HG (35-48); ABG PH 7.225 (7.35-7.45); ABG TCO2 23.3 MMOL/L (23-27)
[2021-04-18] MEDS: ALBUTEROL INHALER 18 GM INH SCH ×4 (03:23→18:15)
[2021-04-18 03:24] LABS: Basophils % 0.1 % (0.0-0.8); Hemoglobin 9.1 GM/DL (14.0-18.0); Immature Granulocytes % 1.4 %; Immature Granulocytes Absolute 0.18 #; Lymphocytes # 0.3 10*3/uL (1.4-4.0); Mean Corpuscular HGB Conc 29.4 GM/DL (32-36); Mean Corpuscular Volume 91.2 FL (87-102); Mean Platelet Volume 11.9 FL (9.6-12.0); Monocytes % 5.1 % (1.7-12.7); Neutrophils % 91.4 % (38.7-73.9); Platelet Count 168 T/CUMM (130-400); Red Cell Distribution Width 15.9 % (9.3-17.3); White Blood Count 12.6 T/CUMM (4-12)
[2021-04-18 03:37] LABS: Calcium 7.5 MG/DL (8.5-10.1); Potassium 5.6 MMOL/L (3.5-5.1)
[2021-04-18 03:54] LABS: Band Neutrophils 3 % (0-10); Hypochromia Slight; Lymphocytes 2 % (20-55); Platelet Estimate Normal; Segmented Neutrophils 94 % (50-85); Total Cells Counted 100
[2021-04-18] MEDS: INSULIN LISPRO 100 UNIT/ML SUBCUT SCH ×3 (04:42→09:34)
[2021-04-18] MEDS: metroNIDAZOLE INJ 500 MG/100 ML PREMIX IV SCH ×3 (05:20→20:42)
[2021-04-18] MEDS: methylPREDNISolone SOD SUC 40 MG/1 ML VIAL IV SCH ×2 (09:34→20:43)
[2021-04-18] MEDS: INSULIN GLARGINE 100 UNIT/ML SUBCUT SCH (09:34)
[2021-04-18] MEDS: PANTOPRAZOLE 40 MG VIAL IV SCH ×2 (09:36→20:42)
[2021-04-18] MEDS: SODIUM CHLORIDE 0.9% 1,000 ML IV SCH ×2 (10:43→20:47)
[2021-04-18] MEDS: INSULIN REGULAR DRIP 100 ML IV PRN ×2 (11:08→19:38)
[2021-04-18] MEDS: LEVOFLOXACIN INJ 750 MG/150 ML PREMIX IV SCH (11:46)
[2021-04-18] MEDS ORDERED: VANCOMYCIN INJ 2,000 MG in SODIUM CHLORIDE 0.9% 500 ML IV ONE ×2 (12:00→14:00)
[2021-04-18] MEDS: HEPARIN DRIP 25,000 UNITS/500 ML PREMIX IV SCH (13:29)
[2021-04-18] MEDS: [UNRECOGNIZED DRUG - OTHER] IV SCH (17:33)
[2021-04-18] MEDS: INSULIN REGULAR IV SCH (17:33)
[2021-04-18] MEDS: MULTIVITAMIN IV SCH (17:33)
[2021-04-18] MEDS: AMINO ACIDS IV SCH (17:33)
[2021-04-18] MEDS ORDERED: SODIUM ZIRCONIUM CYCLOSILICATE 10 GM PACK PO SCH (21:00)
[2021-04-19] MEDS: INSULIN REGULAR DRIP 100 ML IV PRN ×3 (02:01→20:36)
[2021-04-19] MEDS: ALBUTEROL INHALER 18 GM INH SCH ×4 (02:13→18:41)
[2021-04-19] MEDS: SODIUM CHLORIDE 0.9% 1,000 ML IV SCH ×2 (02:31→05:43)
[2021-04-19 03:34] LABS: ABG Base Excess -3.6 MMOL/L (-2.5-2.5); ABG HCO3 21.4 MMOL/L (20-26); ABG Oxygen Saturation 98.7 % (95-100); ABG PCO2 56.7 MM HG (35-48); ABG PH 7.241 (7.35-7.45); ABG TCO2 22.8 MMOL/L (23-27)
[2021-04-19 03:47] LABS: Basophils % 0.1 % (0.0-0.8); Hematocrit 29.9 VOL% (42.0-52.0); Hemoglobin 8.9 GM/DL (14.0-18.0); Immature Granulocytes Absolute 0.28 #; Lymphocytes # 0.2 10*3/uL (1.4-4.0); Lymphocytes % 1.7 % (21.2-54.2); Mean Corpuscular HGB Conc 29.8 GM/DL (32-36); Mean Corpuscular Volume 90.3 FL (87-102); Mean Platelet Volume 11.5 FL (9.6-12.0); Neutrophils % 90.2 % (38.7-73.9); Platelet Count 189 T/CUMM (130-400); Red Blood Count 3.31 MC/CUMM (3.8-5.5); Red Cell Distribution Width 15.9 % (9.3-17.3); White Blood Count 13.7 T/CUMM (4-12)
[2021-04-19 03:50] LABS: Calcium 8.1 MG/DL (8.5-10.1); Potassium 5.4 MMOL/L (3.5-5.1)
[2021-04-19] MEDS: NOREPINEPHRINE 8 MG in SODIUM CHLORIDE 0.9% 242 ML IV PRN ×2 (04:20→23:56)
[2021-04-19] MEDS: metroNIDAZOLE INJ 500 MG/100 ML PREMIX IV SCH ×3 (05:00→20:39)
[2021-04-19 05:10] LABS: Lymphocytes 1 % (20-55); Segmented Neutrophils 95 % (50-85); Total Cells Counted 100
[2021-04-19 05:12] LABS: Hypochromia 1+; Microcytosis 1+; Ovalocytes Slight; Platelet Estimate Adequate; Target Cells Slight
[2021-04-19] MEDS: HEPARIN DRIP 25,000 UNITS/500 ML PREMIX IV SCH ×2 (05:20→20:36)
[2021-04-19] MEDS: fentaNYL INJ 1,250 MCG in SODIUM CHLORIDE 0.9% 225 ML IV PRN ×2 (06:21→19:31)
[2021-04-19] MEDS: SODIUM CHLORIDE 0.45% 1,000 ML IV SCH ×3 (09:01→20:40)
[2021-04-19] MEDS: PANTOPRAZOLE 40 MG VIAL IV SCH ×2 (09:28→20:39)
[2021-04-19] MEDS: methylPREDNISolone SOD SUC 40 MG/1 ML VIAL IV SCH ×2 (09:30→20:39)
[2021-04-19] MEDS ORDERED: SODIUM POLYSTYRENE SULFATE 15 GM/60 ML BOTTLE RECTAL ONE ×2 (10:26→17:02)
[2021-04-19] MEDS: AMINO ACIDS IV SCH (15:51)
[2021-04-19] MEDS: INSULIN REGULAR IV SCH (15:51)
[2021-04-19] MEDS: MULTIVITAMIN IV SCH (15:51)
[2021-04-19] MEDS: [UNRECOGNIZED DRUG - OTHER] IV SCH (15:51)
[2021-04-19 16:25] LABS: Calcium 7.9 MG/DL (8.5-10.1)
[2021-04-19] MEDS ORDERED: CALCIUM GLUCONATE RIDER 1,000 MG/50 ML PREMIX IV ONE (17:03)
[2021-04-19 19:41] LABS: Calcium 7.8 MG/DL (8.5-10.1); Osmolality,Calculated 351.7 MOS/KG (273-304)
[2021-04-19 23:02] LABS: Calcium 7.6 MG/DL (8.5-10.1); Osmolality,Calculated 354.6 MOS/KG (273-304)
[2021-04-19 23:05] LABS: Potassium 6.1 MMOL/L (3.5-5.1)
[2021-04-19] MEDS ORDERED: INSULIN REGULAR 10 UNIT, CALCIUM GLUCONATE 1,000 MG in DEXTROSE 10% 250 ML IV ONE (23:06)
[2021-04-19] MEDS ORDERED: SODIUM BICARBONATE 50 MEQ/50 ML VIAL IV ONE ×2 (23:09→23:24)
[2021-04-20] MEDS ORDERED: AMIODARONE INJ 150 MG in DEXTROSE 5% 100 ML IV ONE (00:35)
[2021-04-20] MEDS ORDERED: AMIODARONE 150 MG/3 ML VIAL ONE (00:37)
[2021-04-20] MEDS ORDERED: AMIODARONE 450 MG/9 ML VIAL IV ONE ×2 (00:37→08:28)
[2021-04-20] MEDS ORDERED: AMIODARONE INJ 450 MG in DEXTROSE 5% 241 ML IV SCH (01:00)
[2021-04-20] MEDS ORDERED: METOPROLOL TARTRATE 5 MG/5 ML VIAL IV ONE ×3 (01:24→20:29)
[2021-04-20] MEDS: ALBUTEROL INHALER 18 GM INH SCH ×4 (01:36→18:17)
[2021-04-20 03:17] LABS: Basophils % 0.2 % (0.0-0.8); Hematocrit 28.2 VOL% (42.0-52.0); Hemoglobin 8.4 GM/DL (14.0-18.0); Immature Granulocytes % 2.6 %; Immature Granulocytes Absolute 0.57 #; Lymphocytes # 0.4 10*3/uL (1.4-4.0); Lymphocytes % 1.7 % (21.2-54.2); Mean Corpuscular HGB Conc 29.8 GM/DL (32-36); Mean Corpuscular Volume 90.7 FL (87-102); Mean Platelet Volume 11.4 FL (9.6-12.0); Monocytes % 5.1 % (1.7-12.7); Neutrophils % 90.4 % (38.7-73.9); Platelet Count 279 T/CUMM (130-400); Red Blood Count 3.11 MC/CUMM (3.8-5.5); Red Cell Distribution Width 16.2 % (9.3-17.3); White Blood Count 21.7 T/CUMM (4-12)
[2021-04-20 03:23] LABS: ABG HCO3 21.9 MMOL/L (20-26); ABG Oxygen Saturation 98.8 % (95-100); ABG PCO2 52.9 MM HG (35-48); ABG TCO2 22.7 MMOL/L (23-27)
[2021-04-20] MEDS: SODIUM CHLORIDE 0.45% 1,000 ML IV SCH ×4 (04:31→18:14)
[2021-04-20 04:40] LABS: Calcium 7.8 MG/DL (8.5-10.1); Osmolality,Calculated 348.7 MOS/KG (273-304)
[2021-04-20 04:43] LABS: Potassium 6.1 MMOL/L (3.5-5.1)
[2021-04-20] MEDS: metroNIDAZOLE INJ 500 MG/100 ML PREMIX IV SCH ×3 (05:00→21:05)
[2021-04-20] MEDS: fentaNYL INJ 1,250 MCG in SODIUM CHLORIDE 0.9% 225 ML IV PRN ×2 (06:11→15:42)
[2021-04-20] MEDS ORDERED: SODIUM POLYSTYRENE SULFATE 15 GM/60 ML BOTTLE RECTAL ONE (08:35)
[2021-04-20] MEDS: INSULIN REGULAR DRIP 100 ML IV PRN ×2 (08:36→17:30)
[2021-04-20] MEDS: AMIODARONE INJ 450 MG in DEXTROSE 5% 241 ML IV SCH ×2 (08:37→23:33)
[2021-04-20] MEDS: methylPREDNISolone SOD SUC 40 MG/1 ML VIAL IV SCH ×2 (09:43→20:34)
[2021-04-20] MEDS: PANTOPRAZOLE 40 MG VIAL IV SCH ×2 (09:44→20:33)
[2021-04-20] MEDS: LEVOFLOXACIN INJ 750 MG/150 ML PREMIX IV SCH (11:13)
[2021-04-20] MEDS: HEPARIN DRIP 25,000 UNITS/500 ML PREMIX IV SCH ×2 (11:14→13:53)
[2021-04-20] MEDS: NOREPINEPHRINE 8 MG in SODIUM CHLORIDE 0.9% 242 ML IV PRN (11:22)
[2021-04-20 15:38] LABS: Calcium 7.5 MG/DL (8.5-10.1); Osmolality,Calculated 346.6 MOS/KG (273-304)
[2021-04-20 15:40] LABS: Potassium 6.1 MMOL/L (3.5-5.1)
[2021-04-20] MEDS: MULTIVITAMIN IV SCH (16:17)
[2021-04-20] MEDS: [UNRECOGNIZED DRUG - OTHER] IV SCH (16:17)
[2021-04-20] MEDS: AMINO ACIDS IV SCH (16:17)
[2021-04-20] MEDS: INSULIN REGULAR IV SCH (16:17)
[2021-04-20] MEDS: ACETAMINOPHEN 325 MG TABLET PO PRN (19:56)
[2021-04-20] MEDS: SODIUM ZIRCONIUM CYCLOSILICATE 10 GM PACK PO SCH (20:33)
[2021-04-20] MEDS ORDERED: LINEZOLID 600 MG TABLET PO SCH (21:00)
[2021-04-21] MEDS: SODIUM CHLORIDE 0.45% 1,000 ML IV SCH ×5 (00:28→20:54)
[2021-04-21] MEDS: ACETAMINOPHEN 325 MG TABLET PO PRN ×2 (00:29→05:59)
[2021-04-21] MEDS ORDERED: METOPROLOL TARTRATE 5 MG/5 ML VIAL IV ONE (00:44)
[2021-04-21] MEDS: fentaNYL INJ 1,250 MCG in SODIUM CHLORIDE 0.9% 225 ML IV PRN ×3 (01:09→17:47)
[2021-04-21] MEDS: ALBUTEROL INHALER 18 GM INH SCH ×2 (01:10→08:51)
[2021-04-21] MEDS: AMIODARONE INJ 450 MG in DEXTROSE 5% 241 ML IV SCH ×2 (01:11→16:12)
[2021-04-21] MEDS: HEPARIN DRIP 25,000 UNITS/500 ML PREMIX IV SCH ×3 (01:36→18:29)
[2021-04-21 03:32] LABS: Basophils % 0.1 % (0.0-0.8); Hematocrit 25.8 VOL% (42.0-52.0); Hemoglobin 7.8 GM/DL (14.0-18.0); Immature Granulocytes % 3.1 %; Immature Granulocytes Absolute 0.61 #; Lymphocytes # 0.5 10*3/uL (1.4-4.0); Lymphocytes % 2.6 % (21.2-54.2); Mean Corpuscular HGB Conc 30.2 GM/DL (32-36); Mean Corpuscular Volume 90.2 FL (87-102); Mean Platelet Volume 11.1 FL (9.6-12.0); Monocytes % 2.6 % (1.7-12.7); NRBC # 0.02 10*3/uL; Neutrophils % 91.6 % (38.7-73.9); Platelet Count 252 T/CUMM (130-400); Red Blood Count 2.86 MC/CUMM (3.8-5.5); Red Cell Distribution Width 16.3 % (9.3-17.3); White Blood Count 19.7 T/CUMM (4-12)
[2021-04-21 03:37] LABS: ABG HCO3 21.1 MMOL/L (20-26); ABG Oxygen Saturation 98.7 % (95-100); ABG PCO2 49.7 MM HG (35-48); ABG PH 7.272 (7.35-7.45); ABG TCO2 21.7 MMOL/L (23-27)
[2021-04-21 03:50] LABS: Albumin 1.5 G/DL (3.4-5.0); Bilirubin,Total 0.5 MG/DL (0.20-1.00); Calcium 7.3 MG/DL (8.5-10.1); Osmolality,Calculated 345.9 MOS/KG (273-304); Potassium 5.8 MMOL/L (3.5-5.1); Total Protein 4.4 G/DL (6.4-8.2)
[2021-04-21 03:56] LABS: Hypochromia 1+; Lymphocytes 2 % (20-55); Microcytosis 1+; Platelet Estimate Adequate; Segmented Neutrophils 95 % (50-85); Total Cells Counted 100
[2021-04-21] MEDS: NOREPINEPHRINE 8 MG in SODIUM CHLORIDE 0.9% 242 ML IV PRN (04:23)
[2021-04-21] MEDS: metroNIDAZOLE INJ 500 MG/100 ML PREMIX IV SCH ×3 (05:57→20:55)
[2021-04-21] MEDS: INSULIN REGULAR DRIP 100 ML IV PRN ×2 (05:59→17:30)
[2021-04-21] MEDS: methylPREDNISolone SOD SUC 40 MG/1 ML VIAL IV SCH ×2 (08:52→20:56)
[2021-04-21] MEDS: PANTOPRAZOLE 40 MG VIAL IV SCH ×2 (08:52→20:55)
[2021-04-21] MEDS: SODIUM ZIRCONIUM CYCLOSILICATE 10 GM PACK PO SCH ×3 (08:53→20:55)
[2021-04-21] MEDS: ALBUMIN 25% 12.5 GM/50 ML VIAL IV SCH ×2 (08:53→15:30)
[2021-04-21] MEDS ORDERED: DIGOXIN 0.5 MG/2 ML AMP IV ONE ×2 (11:51→14:00)
[2021-04-21] MEDS ORDERED: VANCOMYCIN INJ 2,000 MG in SODIUM CHLORIDE 0.9% 500 ML IV ONE (12:30)
[2021-04-21] MEDS ORDERED: ALBUTEROL/IPRATROPIUM 3 ML NEB RESP TX PRN (12:49)
[2021-04-21] MEDS: INSULIN REGULAR IV SCH (14:23)
[2021-04-21] MEDS: MULTIVITAMIN IV SCH (14:23)
[2021-04-21] MEDS: AMINO ACIDS IV SCH (14:23)
[2021-04-21] MEDS: [UNRECOGNIZED DRUG - OTHER] IV SCH (14:23)
[2021-04-22] MEDS: SODIUM CHLORIDE 0.45% 1,000 ML IV SCH ×2 (01:20→11:50)
[2021-04-22] MEDS: fentaNYL INJ 1,250 MCG in SODIUM CHLORIDE 0.9% 225 ML IV PRN ×3 (03:00→20:51)
[2021-04-22 03:08] LABS: ABG Base Excess -4.9 MMOL/L (-2.5-2.5); ABG HCO3 21.2 MMOL/L (20-26); ABG PCO2 44.1 MM HG (35-48); ABG PH 7.299 (7.35-7.45); ABG PO2 150.2 MM HG (80-95); ABG TCO2 22.5 MMOL/L (23-27)
[2021-04-22 03:29] LABS: Basophils % 0.1 % (0.0-0.8); Hematocrit 20.7 VOL% (42.0-52.0); Immature Granulocytes % 3.1 %; Immature Granulocytes Absolute 0.69 #; Lymphocytes # 0.5 10*3/uL (1.4-4.0); Lymphocytes % 2.2 % (21.2-54.2); Mean Platelet Volume 11.5 FL (9.6-12.0); Monocytes % 3.6 % (1.7-12.7); NRBC # 0.05 10*3/uL; Platelet Count 254 T/CUMM (130-400); White Blood Count 22.3 T/CUMM (4-12)
[2021-04-22 03:39] LABS: Albumin 1.8 G/DL (3.4-5.0); Bilirubin,Total 0.5 MG/DL (0.20-1.00); Calcium 7.3 MG/DL (8.5-10.1); Osmolality,Calculated 338.1 MOS/KG (273-304); Potassium 5.6 MMOL/L (3.5-5.1); Total Protein 4.4 G/DL (6.4-8.2)
[2021-04-22 04:06] LABS: Hemoglobin 6.2 GM/DL (14.0-18.0)
[2021-04-22 04:13] LABS: Hypochromia 2+; Lymphocytes 3 % (20-55); Microcytosis 1+; Platelet Estimate Adequate; Segmented Neutrophils 96 % (50-85); Total Cells Counted 100
[2021-04-22] MEDS: metroNIDAZOLE INJ 500 MG/100 ML PREMIX IV SCH ×3 (05:00→23:50)
[2021-04-22] MEDS: AMIODARONE INJ 450 MG in DEXTROSE 5% 241 ML IV SCH ×3 (05:43→23:50)
[2021-04-22] MEDS: INSULIN REGULAR DRIP 100 ML IV PRN ×3 (08:04→21:56)
[2021-04-22] MEDS: DIGOXIN 0.5 MG/2 ML AMP IV SCH (09:26)
[2021-04-22] MEDS: methylPREDNISolone SOD SUC 40 MG/1 ML VIAL IV SCH ×2 (09:28→20:09)
[2021-04-22] MEDS: PANTOPRAZOLE 40 MG VIAL IV SCH ×2 (09:30→20:10)
[2021-04-22] MEDS: SODIUM ZIRCONIUM CYCLOSILICATE 10 GM PACK PO SCH ×2 (09:32→16:00)
[2021-04-22] MEDS: ALBUMIN 25% 12.5 GM/50 ML VIAL IV SCH ×2 (09:32)
[2021-04-22] MEDS ORDERED: MORPHINE 2 MG/1 ML SYRINGE IV ONE (12:10)
[2021-04-22] MEDS ORDERED: MORPHINE 4 MG/1 ML VIAL IV ONE (12:30)
[2021-04-22] MEDS: HEPARIN DRIP 25,000 UNITS/500 ML PREMIX IV SCH (12:32)
[2021-04-22] MEDS: [UNRECOGNIZED DRUG - OTHER] IV SCH (12:37)
[2021-04-22] MEDS: AMINO ACIDS IV SCH (12:37)
[2021-04-22] MEDS: INSULIN REGULAR IV SCH (12:37)
[2021-04-22] MEDS: MULTIVITAMIN IV SCH (12:37)
[2021-04-22] MEDS: LEVOFLOXACIN INJ 750 MG/150 ML PREMIX IV SCH (14:18)
[2021-04-22 15:21] LABS: Hematocrit 24.3 VOL% (42.0-52.0); Hemoglobin 7.3 GM/DL (14.0-18.0)
[2021-04-22] MEDS ORDERED: LACTATED RINGERS 500 ML IV ONE (15:46)
[2021-04-22 18:15] LABS: Hematocrit 22.6 VOL% (42.0-52.0); Hemoglobin 7.1 GM/DL (14.0-18.0)
[2021-04-23 01:23] LABS: Hemoglobin 7.2 GM/DL (14.0-18.0)
[2021-04-23] MEDS: fentaNYL INJ 1,250 MCG in SODIUM CHLORIDE 0.9% 225 ML IV PRN ×4 (03:38→22:30)
[2021-04-23 03:47] LABS: ABG Base Excess -6.6 MMOL/L (-2.5-2.5); ABG HCO3 20.2 MMOL/L (20-26); ABG Oxygen Saturation 98.2 % (95-100); ABG PH 7.242 (7.35-7.45); ABG PO2 156.8 MM HG (80-95); ABG TCO2 21.7 MMOL/L (23-27)
[2021-04-23 03:51] LABS: Basophils % 0.1 % (0.0-0.8); Hematocrit 21.4 VOL% (42.0-52.0); Hemoglobin 6.5 GM/DL (14.0-18.0); Immature Granulocytes Absolute 1.33 #; Lymphocytes # 0.4 10*3/uL (1.4-4.0); Lymphocytes % 1.7 % (21.2-54.2); Mean Corpuscular HGB Conc 30.4 GM/DL (32-36); Mean Corpuscular Volume 91.1 FL (87-102); Mean Platelet Volume 10.9 FL (9.6-12.0); Monocytes % 3.6 % (1.7-12.7); NRBC # 0.13 10*3/uL; Neutrophils % 88.6 % (38.7-73.9); Platelet Count 235 T/CUMM (130-400); Red Blood Count 2.35 MC/CUMM (3.8-5.5); Red Cell Distribution Width 15.9 % (9.3-17.3); White Blood Count 22.1 T/CUMM (4-12)
[2021-04-23 04:10] LABS: Alanine Aminotransferase 18 U/L (16-61); Albumin 1.7 G/DL (3.4-5.0); Alkaline Phosphatase 41 U/L (45-117); Aspartate Amino Transferase 24 U/L (0-37); Bilirubin,Total < 0.39 MG/DL (0.20-1.00); Blood Urea Nitrogen 127 MG/DL (7-18); Calcium 7.6 MG/DL (8.5-10.1); Carbon Dioxide 22 MMOL/L (21-32); Estimated Glom Filtration Rate 55 ML/MIN; Glucose 80 MG/DL (74-106); Osmolality,Calculated 338.9 MOS/KG (273-304); Potassium 5.3 MMOL/L (3.5-5.1); Sodium 151 MMOL/L (136-145)
[2021-04-23 04:16] LABS: Band Neutrophils 1 % (0-10); Hypochromia 2+; Lymphocytes 2 % (20-55); Microcytosis 1+; Platelet Estimate Adequate; Segmented Neutrophils 92 % (50-85); Total Cells Counted 100
[2021-04-23] MEDS ORDERED: SODIUM CHLORIDE 0.9% 1,000 ML IV PRN (05:02)
[2021-04-23] MEDS: HEPARIN DRIP 25,000 UNITS/500 ML PREMIX IV SCH (06:30)
[2021-04-23] MEDS: INSULIN REGULAR DRIP 100 ML IV PRN ×2 (08:15→18:05)
[2021-04-23] MEDS: PANTOPRAZOLE 40 MG VIAL IV SCH (08:36)
[2021-04-23] MEDS: methylPREDNISolone SOD SUC 40 MG/1 ML VIAL IV SCH ×2 (08:38→20:05)
[2021-04-23] MEDS: metroNIDAZOLE INJ 500 MG/100 ML PREMIX IV SCH (08:41)
[2021-04-23] MEDS: [UNRECOGNIZED DRUG - OTHER] IV SCH (10:15)
[2021-04-23] MEDS: AMINO ACIDS IV SCH (10:15)
[2021-04-23] MEDS: MULTIVITAMIN IV SCH (10:15)
[2021-04-23] MEDS: INSULIN REGULAR IV SCH (10:15)
[2021-04-23] MEDS: MIDAZOLAM 100 MG in SODIUM CHLORIDE 0.9% 80 ML IV PRN (11:06)
[2021-04-23] MEDS: FAMOTIDINE INJ 40 MG in SODIUM CHLORIDE 0.9% 100 ML IV SCH (12:22)
[2021-04-23] MEDS: AMIODARONE INJ 450 MG in DEXTROSE 5% 241 ML IV SCH (14:51)
[2021-04-24] MEDS: FAMOTIDINE INJ 40 MG in SODIUM CHLORIDE 0.9% 100 ML IV SCH ×2 (00:33→11:42)
[2021-04-24 03:24] LABS: ABG Base Excess -5.3 MMOL/L (-2.5-2.5); ABG Oxygen Saturation 98.8 % (95-100); ABG PCO2 48.5 MM HG (35-48); ABG PH 7.257 (7.35-7.45); ABG TCO2 20.8 MMOL/L (23-27)
[2021-04-24 03:27] LABS: Basophils % 0.1 % (0.0-0.8); Hematocrit 22.1 VOL% (42.0-52.0); Hemoglobin 6.9 GM/DL (14.0-18.0); Immature Granulocytes % 7.5 %; Immature Granulocytes Absolute 1.71 #; Lymphocytes # 0.4 10*3/uL (1.4-4.0); Lymphocytes % 1.9 % (21.2-54.2); Mean Corpuscular HGB Conc 31.2 GM/DL (32-36); Mean Corpuscular Volume 91.7 FL (87-102); Mean Platelet Volume 11.2 FL (9.6-12.0); Monocytes % 4.5 % (1.7-12.7); NRBC # 0.16 10*3/uL; Platelet Count 240 T/CUMM (130-400); Red Blood Count 2.41 MC/CUMM (3.8-5.5); Red Cell Distribution Width 15.6 % (9.3-17.3); White Blood Count 22.7 T/CUMM (4-12)
[2021-04-24 03:58] LABS: Albumin 1.6 G/DL (3.4-5.0); Bilirubin,Total 0.4 MG/DL (0.20-1.00); Calcium 7.8 MG/DL (8.5-10.1); Osmolality,Calculated 343.4 MOS/KG (273-304); Potassium 5.5 MMOL/L (3.5-5.1)
[2021-04-24 04:10] LABS: Band Neutrophils 1 % (0-10); Hypochromia 2+; Lymphocytes 5 % (20-55); Microcytosis 1+; Nucleated Red Blood Cells 1 (0-5); Platelet Estimate Adequate; Segmented Neutrophils 93 % (50-85); Total Cells Counted 100
[2021-04-24] MEDS: fentaNYL INJ 1,250 MCG in SODIUM CHLORIDE 0.9% 225 ML IV PRN ×3 (04:32→18:05)
[2021-04-24] MEDS: AMIODARONE INJ 450 MG in DEXTROSE 5% 241 ML IV SCH ×2 (06:25→21:24)
[2021-04-24] MEDS: INSULIN REGULAR IV SCH (07:07)
[2021-04-24] MEDS: [UNRECOGNIZED DRUG - OTHER] IV SCH (07:07)
[2021-04-24] MEDS: AMINO ACIDS IV SCH (07:07)
[2021-04-24] MEDS: MULTIVITAMIN IV SCH (07:07)
[2021-04-24] MEDS ORDERED: LACTATED RINGERS 1,000 ML IV SCH (08:00)
[2021-04-24] MEDS: methylPREDNISolone SOD SUC 40 MG/1 ML VIAL IV SCH ×2 (09:01→20:03)
[2021-04-24] MEDS: DIGOXIN 0.5 MG/2 ML AMP IV SCH (09:01)
[2021-04-24] MEDS: INSULIN REGULAR DRIP 100 ML IV PRN (11:46)
[2021-04-24] MEDS: SODIUM CHLORIDE 0.45% 1,000 ML IV SCH (13:15)
[2021-04-24] MEDS: LEVOFLOXACIN INJ 750 MG/150 ML PREMIX IV SCH (13:32)
[2021-04-24] MEDS ORDERED: DEXTROSE 5% 1,000 ML IV SCH (14:00)
[2021-04-24] MEDS: SODIUM ZIRCONIUM CYCLOSILICATE 10 GM PACK PO SCH (20:03)
[2021-04-24] MEDS: MIDAZOLAM 100 MG in SODIUM CHLORIDE 0.9% 80 ML IV PRN (23:20)
[2021-04-25] MEDS: INSULIN REGULAR DRIP 100 ML IV PRN ×2 (00:05→12:54)
[2021-04-25] MEDS: FAMOTIDINE INJ 40 MG in SODIUM CHLORIDE 0.9% 100 ML IV SCH ×2 (01:08→13:27)
[2021-04-25] MEDS: fentaNYL INJ 1,250 MCG in SODIUM CHLORIDE 0.9% 225 ML IV PRN ×2 (03:18→09:42)
[2021-04-25 03:56] LABS: Basophils % 0.1 % (0.0-0.8); Hematocrit 24.3 VOL% (42.0-52.0); Hemoglobin 7.4 GM/DL (14.0-18.0); Immature Granulocytes % 5.3 %; Immature Granulocytes Absolute 1.15 #; Lymphocytes # 0.4 10*3/uL (1.4-4.0); Lymphocytes % 1.6 % (21.2-54.2); Mean Corpuscular HGB Conc 30.5 GM/DL (32-36); Mean Corpuscular Volume 93.8 FL (87-102); Mean Platelet Volume 10.4 FL (9.6-12.0); Monocytes % 3.7 % (1.7-12.7); NRBC # 0.12 10*3/uL; Neutrophils % 89.3 % (38.7-73.9); Platelet Count 246 T/CUMM (130-400); Red Blood Count 2.59 MC/CUMM (3.8-5.5); Red Cell Distribution Width 15.9 % (9.3-17.3); White Blood Count 21.8 T/CUMM (4-12)
[2021-04-25 04:16] LABS: Albumin 1.7 G/DL (3.4-5.0); Bilirubin,Total 0.8 MG/DL (0.20-1.00); Calcium 7.9 MG/DL (8.5-10.1); Osmolality,Calculated 344.3 MOS/KG (273-304); Potassium 5.2 MMOL/L (3.5-5.1); Total Protein 4.5 G/DL (6.4-8.2)
[2021-04-25 04:19] LABS: Band Neutrophils 3 % (0-10); Lymphocytes 2 % (20-55); Metamyelocytes 1 %; Nucleated Red Blood Cells 1 (0-5); Segmented Neutrophils 93 % (50-85); Total Cells Counted 100
[2021-04-25 04:20] LABS: Hypochromia Slight; Microcytosis 1+; Ovalocytes Slight; Platelet Estimate Normal
[2021-04-25 04:36] LABS: ABG Base Excess -6.8 MMOL/L (-2.5-2.5); ABG HCO3 18.6 MMOL/L (20-26); ABG Oxygen Saturation 84.9 % (95-100); ABG PCO2 51.6 MM HG (35-48); ABG PH 7.217 (7.35-7.45); ABG PO2 55.5 MM HG (80-95)
[2021-04-25] MEDS: AMINO ACIDS IV SCH ×2 (06:00→10:53)
[2021-04-25] MEDS: INSULIN REGULAR IV SCH ×2 (06:00→10:53)
[2021-04-25] MEDS: [UNRECOGNIZED DRUG - OTHER] IV SCH ×2 (06:00→10:53)
[2021-04-25] MEDS: MULTIVITAMIN IV SCH ×2 (06:00→10:53)
[2021-04-25 06:11] LABS: ABG Base Excess -6.7 MMOL/L (-2.5-2.5); ABG HCO3 18.8 MMOL/L (20-26); ABG Oxygen Saturation 95.1 % (95-100); ABG PCO2 51.4 MM HG (35-48); ABG PH 7.218 (7.35-7.45); ABG PO2 81.5 MM HG (80-95); Allen Test Positive; Pt O2 Delivery Device Ventilator
[2021-04-25] MEDS: SODIUM ZIRCONIUM CYCLOSILICATE 10 GM PACK PO SCH (08:27)
[2021-04-25] MEDS: methylPREDNISolone SOD SUC 40 MG/1 ML VIAL IV SCH ×2 (08:27→20:09)
[2021-04-25] MEDS ORDERED: SULFAMETHOX/TRIMETHOPRIM 400-80 MG TABLET PO SCH (09:00)
[2021-04-25] MEDS: SODIUM HYPOCHLORITE 0.25% IRRIG 473 ML BOTTLE TOP SCH (10:53)
[2021-04-25] MEDS: SODIUM CHLORIDE 0.45% 1,000 ML IV SCH (10:54)
[2021-04-25] MEDS: SULFAMETHOX/TRIMETHOPRIM 800-160 MG TABLET PO SCH ×2 (11:10→20:09)
[2021-04-25] MEDS ORDERED: DEXMEDETOMIDINE 400 MCG in SODIUM CHLORIDE 0.9% 46 ML IV PRN (14:30)
[2021-04-25] MEDS: AMIODARONE INJ 450 MG in DEXTROSE 5% 241 ML IV SCH ×2 (14:31→16:02)
[2021-04-25] MEDS ORDERED: fentaNYL 25 MCG/HR PATCH TRANSDERM SCH (18:13)
[2021-04-25] MEDS: DEXMEDETOMIDINE 400 MCG in SODIUM CHLORIDE 0.9% 96 ML IV PRN (18:50)
[2021-04-25] MEDS: MORPHINE 4 MG/1 ML VIAL IV PRN (21:58)
[2021-04-26] MEDS: INSULIN REGULAR DRIP 100 ML IV PRN ×2 (00:02→16:16)
[2021-04-26] MEDS: FAMOTIDINE INJ 40 MG in SODIUM CHLORIDE 0.9% 100 ML IV SCH ×2 (00:30→12:38)
[2021-04-26] MEDS: DEXMEDETOMIDINE 400 MCG in SODIUM CHLORIDE 0.9% 96 ML IV PRN ×5 (00:54→19:52)
[2021-04-26] MEDS: hydrALAZINE 20 MG/1 ML VIAL IV PRN (01:02)
[2021-04-26] MEDS: MORPHINE 4 MG/1 ML VIAL IV PRN (01:19)
[2021-04-26] MEDS: AMIODARONE INJ 450 MG in DEXTROSE 5% 241 ML IV SCH ×3 (02:32→18:53)
[2021-04-26] MEDS: INSULIN REGULAR IV SCH ×2 (04:00→06:12)
[2021-04-26] MEDS: AMINO ACIDS IV SCH ×2 (04:00→06:12)
[2021-04-26] MEDS: [UNRECOGNIZED DRUG - OTHER] IV SCH ×2 (04:00→06:12)
[2021-04-26] MEDS: MULTIVITAMIN IV SCH ×2 (04:00→06:12)
[2021-04-26 04:10] LABS: ABG Base Excess -6.7 MMOL/L (-2.5-2.5); ABG HCO3 20.3 MMOL/L (20-26); ABG PCO2 48.8 MM HG (35-48); ABG PH 7.238 (7.35-7.45); ABG PO2 106.4 MM HG (80-95); ABG TCO2 21.8 MMOL/L (23-27)
[2021-04-26 04:25] LABS: Basophils % 0.1 % (0.0-0.8); Hematocrit 24.6 VOL% (42.0-52.0); Hemoglobin 7.4 GM/DL (14.0-18.0); Immature Granulocytes % 4.4 %; Immature Granulocytes Absolute 0.98 #; Lymphocytes # 0.4 10*3/uL (1.4-4.0); Lymphocytes % 1.6 % (21.2-54.2); Mean Corpuscular HGB Conc 30.1 GM/DL (32-36); Mean Corpuscular Volume 93.2 FL (87-102); Monocytes % 3.2 % (1.7-12.7); Neutrophils % 90.7 % (38.7-73.9); Platelet Count 248 T/CUMM (130-400); Red Blood Count 2.64 MC/CUMM (3.8-5.5); Red Cell Distribution Width 16.2 % (9.3-17.3)
[2021-04-26 04:37] LABS: Calcium 8.7 MG/DL (8.5-10.1); Osmolality,Calculated 342.4 MOS/KG (273-304); Potassium 5.1 MMOL/L (3.5-5.1)
[2021-04-26 04:58] LABS: Band Neutrophils 2 % (0-10); Hypochromia 1+; Lymphocytes 1 % (20-55); Metamyelocytes 2 %; Microcytosis 1+; Ovalocytes Slight; Segmented Neutrophils 94 % (50-85); Total Cells Counted 100
[2021-04-26 04:59] LABS: Platelet Estimate Normal; Target Cells Slight
[2021-04-26 07:55] LABS: PT Patient Result 11.7 SECS (10.5-12.0)
[2021-04-26] MEDS: SODIUM HYPOCHLORITE 0.25% IRRIG 473 ML BOTTLE TOP SCH (08:00)
[2021-04-26] MEDS: SODIUM ZIRCONIUM CYCLOSILICATE 10 GM PACK PO SCH (10:21)
[2021-04-26] MEDS: methylPREDNISolone SOD SUC 40 MG/1 ML VIAL IV SCH ×2 (10:31→21:03)
[2021-04-26] MEDS: MEROPENEM 500 MG in SODIUM CHLORIDE 0.9% 100 ML IV SCH ×3 (10:34→21:07)
[2021-04-26] MEDS ORDERED: ROCURONIUM 50 MG/5 ML VIAL IV ONE (10:39)
[2021-04-26] MEDS ORDERED: SEVOFLURANE 1 UNIT/15 MINUTE INH ONE ×4 (10:39→12:19)
[2021-04-26] MEDS ORDERED: ONDANSETRON 4 MG/2 ML VIAL ONE (10:39)
[2021-04-26] MEDS ORDERED: MIDAZOLAM 10 MG/2 ML VIAL ONE (10:42)
[2021-04-26] MEDS ORDERED: MINERAL OIL/PETROLATUM OPH OINT 3.5 GM TUBE ONE (11:03)
[2021-04-26] MEDS ORDERED: PHENYLEPHRINE 10 MG/1 ML VIAL IV ONE (11:08)
[2021-04-26] MEDS ORDERED: SODIUM CHLORIDE 0.9% 250 ML IV ONE (11:09)
[2021-04-26] MEDS ORDERED: PHENYLEPHRINE 1 MG/10 ML SYRINGE IV ONE (11:23)
[2021-04-26] MEDS: SULFAMETHOX/TRIMETHOPRIM 800-160 MG TABLET PO SCH (11:38)
[2021-04-26] MEDS: PHENYLEPHRINE DRIP 40 MG/250 ML PREMIX IV PRN (12:08)
[2021-04-26] MEDS: VANCOMYCIN INJ 2,000 MG in SODIUM CHLORIDE 0.9% 500 ML IV SCH (13:04)
[2021-04-26] MEDS: ACETAMINOPHEN 325 MG TABLET PO PRN ×2 (18:30→23:07)
[2021-04-27] MEDS: DEXMEDETOMIDINE 400 MCG in SODIUM CHLORIDE 0.9% 96 ML IV PRN ×4 (00:19→17:09)
[2021-04-27] MEDS: FAMOTIDINE INJ 40 MG in SODIUM CHLORIDE 0.9% 100 ML IV SCH (00:26)
[2021-04-27] MEDS: INSULIN REGULAR IV SCH ×2 (02:01→04:30)
[2021-04-27] MEDS: AMINO ACIDS IV SCH ×2 (02:01→04:30)
[2021-04-27] MEDS: AMIODARONE INJ 450 MG in DEXTROSE 5% 241 ML IV SCH ×4 (02:01→22:57)
[2021-04-27] MEDS: MULTIVITAMIN IV SCH ×2 (02:01→04:30)
[2021-04-27] MEDS: [UNRECOGNIZED DRUG - OTHER] IV SCH ×2 (02:01→04:30)
[2021-04-27 03:15] LABS: ABG Base Excess -6.5 MMOL/L (-2.5-2.5); ABG HCO3 19.7 MMOL/L (20-26); ABG Oxygen Saturation 97.8 % (95-100); ABG PCO2 42.7 MM HG (35-48); ABG PH 7.282 (7.35-7.45); ABG PO2 134.9 MM HG (80-95)
[2021-04-27] MEDS: MORPHINE 4 MG/1 ML VIAL IV PRN (03:25)
[2021-04-27 04:02] LABS: Osmolality,Calculated 340.3 MOS/KG (273-304); Potassium 5.6 MMOL/L (3.5-5.1)
[2021-04-27 04:08] LABS: PT Patient Result 11.4 SECS (10.5-12.0)
[2021-04-27] MEDS: MEROPENEM 500 MG in SODIUM CHLORIDE 0.9% 100 ML IV SCH ×4 (05:20→22:49)
[2021-04-27] MEDS: DIGOXIN 0.5 MG/2 ML AMP IV SCH (08:15)
[2021-04-27] MEDS: methylPREDNISolone SOD SUC 40 MG/1 ML VIAL IV SCH ×2 (08:31→20:48)
[2021-04-27] MEDS ORDERED: MORPHINE 4 MG/1 ML VIAL IV PRN ×2 (08:38→17:35)
[2021-04-27] MEDS ORDERED: DEXTROSE 5% NACL 0.45% 1,000 ML IV SCH (09:00)
[2021-04-27] MEDS ORDERED: DEXTROSE 5% 1,000 ML IV SCH (09:00)
[2021-04-27] MEDS: SODIUM HYPOCHLORITE 0.25% IRRIG 473 ML BOTTLE TOP SCH (09:28)
[2021-04-27] MEDS: HEPARIN DRIP 25,000 UNITS/500 ML PREMIX IV SCH (09:29)
[2021-04-27] MEDS: SODIUM ZIRCONIUM CYCLOSILICATE 10 GM PACK PO SCH (09:30)
[2021-04-27] MEDS ORDERED: DEXTROSE 10% 250 ML BAG IV PRN (12:36)
[2021-04-27] MEDS: SODIUM CHLORIDE 0.45% 1,000 ML IV SCH (13:07)
[2021-04-27 13:14] LABS: White Blood Count 23.7 T/CUMM (4-12)
[2021-04-27 13:15] LABS: Hematocrit 25.8 VOL% (42.0-52.0); Immature Granulocytes % 2.5 %; Lymphocytes # 0.7 10*3/uL (1.4-4.0); Lymphocytes % 2.8 % (21.2-54.2); Mean Corpuscular Volume 93.5 FL (87-102); Mean Platelet Volume 11.1 FL (9.6-12.0); Monocytes % 3.2 % (1.7-12.7); Neutrophils % 91.5 % (38.7-73.9); Platelet Count 275 T/CUMM (130-400); Red Blood Count 2.76 MC/CUMM (3.8-5.5); Red Cell Distribution Width 16.2 % (9.3-17.3)
[2021-04-27 13:16] LABS: Immature Granulocytes Absolute 0.59 #
[2021-04-27] MEDS: VANCOMYCIN INJ 2,000 MG in SODIUM CHLORIDE 0.9% 500 ML IV SCH (13:42)
[2021-04-27] MEDS: INSULIN GLARGINE 100 UNIT/ML SUBCUT SCH (13:43)
[2021-04-27 14:48] LABS: Anisocytosis 1+; Band Neutrophils 1 % (0-10); Lymphocytes 3 % (20-55); Metamyelocytes 1 %; Myelocytes 1 %; Polychromasia Slight; Segmented Neutrophils 92 % (50-85); Total Cells Counted 100
[2021-04-27 14:49] LABS: Burr Cells Slight; Hypochromia Slight; Ovalocytes Slight; Schistocytes Slight
[2021-04-27 14:50] LABS: Basophilic Stippling Few; Platelet Estimate Normal; Target Cells Slight
[2021-04-27 15:20] LABS: Basophils % 0.1 % (0.0-0.8); Hematocrit 25.5 VOL% (42.0-52.0); Hemoglobin 7.8 GM/DL (14.0-18.0); Immature Granulocytes Absolute 0.69 #; Lymphocytes # 0.5 10*3/uL (1.4-4.0); Mean Corpuscular HGB Conc 30.6 GM/DL (32-36); Mean Corpuscular Volume 92.7 FL (87-102); Mean Platelet Volume 10.7 FL (9.6-12.0); Monocytes % 3.6 % (1.7-12.7); NRBC # 0.08 10*3/uL; Neutrophils % 91.3 % (38.7-73.9); Platelet Count 237 T/CUMM (130-400); Red Blood Count 2.75 MC/CUMM (3.8-5.5); Red Cell Distribution Width 16.1 % (9.3-17.3)
[2021-04-27 15:34] LABS: Osmolality,Calculated 343.1 MOS/KG (273-304); Potassium 5.5 MMOL/L (3.5-5.1)
[2021-04-27 15:54] LABS: Band Neutrophils 1 % (0-10); Lymphocytes 2 % (20-55); Metamyelocytes 1 %; Segmented Neutrophils 95 % (50-85); Total Cells Counted 100
[2021-04-27 15:55] LABS: Burr Cells Slight; Macrocytosis Slight; Ovalocytes Slight; Platelet Estimate Normal; Polychromasia Slight
[2021-04-27] MEDS: INSULIN NPH 100 UNIT/ML SUBCUT SCH (16:01)
[2021-04-27] MEDS: INSULIN LISPRO 100 UNIT/ML SUBCUT SCH ×2 (16:01→20:48)
[2021-04-27] MEDS ORDERED: ZINC IV SCH (17:00)
[2021-04-27] MEDS ORDERED: SELENIUM IV SCH (17:00)
[2021-04-27] MEDS ORDERED: COPPER IV SCH (17:00)
[2021-04-27] MEDS ORDERED: [UNRECOGNIZED DRUG - OTHER] IV SCH (17:00)
[2021-04-27] MEDS ORDERED: MULTIVITAMIN IV SCH (17:00)
[2021-04-27] MEDS ORDERED: MANGANESE IV SCH (17:00)
[2021-04-27] MEDS: hydrALAZINE 20 MG/1 ML VIAL IV PRN (17:21)
[2021-04-27] MEDS: fentaNYL INJ 1,250 MCG in SODIUM CHLORIDE 0.9% 225 ML IV PRN (19:51)
[2021-04-27] MEDS: PANTOPRAZOLE 40 MG VIAL IV SCH (20:48)
[2021-04-27] MEDS: PHENYLEPHRINE DRIP 40 MG/250 ML PREMIX IV PRN (21:01)
[2021-04-28] MEDS: INSULIN LISPRO 100 UNIT/ML SUBCUT SCH ×6 (00:23→20:20)
[2021-04-28] MEDS: DEXMEDETOMIDINE 400 MCG in SODIUM CHLORIDE 0.9% 96 ML IV PRN (01:32)
[2021-04-28] MEDS: SODIUM CHLORIDE 0.45% 1,000 ML IV SCH ×3 (02:28→18:17)
[2021-04-28 03:45] LABS: ABG Base Excess -9.2 MMOL/L (-2.5-2.5); ABG HCO3 18.1 MMOL/L (20-26); ABG Oxygen Saturation 85.1 % (95-100); ABG PCO2 46.6 MM HG (35-48); ABG PO2 55.7 MM HG (80-95); ABG TCO2 19.5 MMOL/L (23-27)
[2021-04-28 03:49] LABS: ABG PH 7.206 (7.35-7.45)
[2021-04-28 03:59] LABS: Basophils % 0.1 % (0.0-0.8); Hematocrit 22.7 VOL% (42.0-52.0); Hemoglobin 6.9 GM/DL (14.0-18.0); Immature Granulocytes % 2.5 %; Immature Granulocytes Absolute 0.48 #; Lymphocytes # 0.2 10*3/uL (1.4-4.0); Lymphocytes % 1.2 % (21.2-54.2); Mean Corpuscular HGB Conc 30.4 GM/DL (32-36); Mean Corpuscular Volume 94.2 FL (87-102); Mean Platelet Volume 10.7 FL (9.6-12.0); NRBC # 0.14 10*3/uL; Neutrophils % 92.2 % (38.7-73.9); Platelet Count 229 T/CUMM (130-400); Red Blood Count 2.41 MC/CUMM (3.8-5.5); Red Cell Distribution Width 16.2 % (9.3-17.3); White Blood Count 19.5 T/CUMM (4-12)
[2021-04-28 04:15] LABS: Albumin 1.4 G/DL (3.4-5.0); Bilirubin,Total 0.7 MG/DL (0.20-1.00); Calcium 7.6 MG/DL (8.5-10.1); Potassium 5.1 MMOL/L (3.5-5.1); Total Protein 4.5 G/DL (6.4-8.2)
[2021-04-28 04:18] LABS: Hypochromia 1+; Lymphocytes 3 % (20-55); Microcytosis 1+; Nucleated Red Blood Cells 1 (0-5); Platelet Estimate Adequate; Segmented Neutrophils 92 % (50-85); Total Cells Counted 100
[2021-04-28] MEDS: MEROPENEM 500 MG in SODIUM CHLORIDE 0.9% 100 ML IV SCH ×4 (04:40→21:24)
[2021-04-28 04:42] LABS: ABG Base Excess -9.1 MMOL/L (-2.5-2.5); ABG Oxygen Saturation 94.5 % (95-100); ABG PCO2 49.4 MM HG (35-48); ABG PO2 81.5 MM HG (80-95); ABG TCO2 18.1 MMOL/L (23-27)
[2021-04-28 04:44] LABS: ABG PH 7.188 (7.35-7.45)
[2021-04-28] MEDS ORDERED: SODIUM BICARBONATE 50 MEQ/50 ML VIAL IV ONE ×2 (04:51→07:58)
[2021-04-28] MEDS ORDERED: SODIUM CHLORIDE 0.9% 1,000 ML IV PRN (04:52)
[2021-04-28] MEDS: fentaNYL INJ 1,250 MCG in SODIUM CHLORIDE 0.9% 225 ML IV PRN ×2 (05:33→16:05)
[2021-04-28] MEDS: MIDAZOLAM 100 MG in SODIUM CHLORIDE 0.9% 80 ML IV PRN (07:20)
[2021-04-28] MEDS: PANTOPRAZOLE 40 MG VIAL IV SCH ×2 (08:13→20:21)
[2021-04-28] MEDS: INSULIN GLARGINE 100 UNIT/ML SUBCUT SCH (08:14)
[2021-04-28] MEDS: methylPREDNISolone SOD SUC 40 MG/1 ML VIAL IV SCH ×2 (08:14→20:21)
[2021-04-28] MEDS: INSULIN NPH 100 UNIT/ML SUBCUT SCH ×2 (08:14→16:24)
[2021-04-28] MEDS: SODIUM ZIRCONIUM CYCLOSILICATE 10 GM PACK PO SCH (08:17)
[2021-04-28] MEDS: SODIUM HYPOCHLORITE 0.25% IRRIG 473 ML BOTTLE TOP SCH (08:26)
[2021-04-28 08:50] LABS: ABG HCO3 20.2 MMOL/L (20-26); ABG Oxygen Saturation 99.4 % (95-100); ABG PCO2 42.4 MM HG (35-48); ABG PH 7.302 (7.35-7.45); ABG TCO2 20.1 MMOL/L (23-27); Allen Test Positive; Pt O2 Delivery Device Ventilator
[2021-04-28] MEDS: HEPARIN DRIP 25,000 UNITS/500 ML PREMIX IV SCH ×2 (09:35→20:27)
[2021-04-28 10:11] LABS: Amorphous Crystals,Urine Few /HPF (Few); Bilirubin,Urine Negative (Negative); Blood, Urine Moderate mg/dL (Negative); Glucose,Urine (UA) 50 mg/dL (Negative); Ketones,Urine Negative (Negative); Mucus,Urine Occasional /LPF (Occasional); Nitrite,Urine Negative (Negative); Protein,Urine Negative; RBC,Urine 28 /HPF (0-4); Urine Appearance CLOUDY (Clear); Urine Color Yellow (Yellow); Urine Specific Gravity 1.013 (1.001-1.035); Urine Urobilinogen < 2.0 EU/DL (<2.0)
[2021-04-28] MEDS: MICAFUNGIN 100 MG in SODIUM CHLORIDE 0.9% 100 ML IV SCH (10:44)
[2021-04-28] MEDS: VANCOMYCIN INJ 2,000 MG in SODIUM CHLORIDE 0.9% 500 ML IV SCH (11:52)
[2021-04-28 13:40] LABS: Basophils % 0.1 % (0.0-0.8); Hematocrit 24.3 VOL% (42.0-52.0); Hemoglobin 7.5 GM/DL (14.0-18.0); Immature Granulocytes % 1.8 %; Immature Granulocytes Absolute 0.27 #; Lymphocytes # 0.2 10*3/uL (1.4-4.0); Lymphocytes % 1.1 % (21.2-54.2); Mean Corpuscular HGB Conc 30.9 GM/DL (32-36); Mean Corpuscular Volume 89.7 FL (87-102); Mean Platelet Volume 10.8 FL (9.6-12.0); Monocytes % 2.8 % (1.7-12.7); NRBC # 0.06 10*3/uL; Neutrophils % 94.2 % (38.7-73.9); Platelet Count 167 T/CUMM (130-400); Red Blood Count 2.71 MC/CUMM (3.8-5.5); Red Cell Distribution Width 16.9 % (9.3-17.3); White Blood Count 14.9 T/CUMM (4-12)
[2021-04-28 14:08] LABS: Band Neutrophils 2 % (0-10); Lymphocytes 1 % (20-55); Platelet Estimate Adequate; Segmented Neutrophils 94 % (50-85); Total Cells Counted 100
[2021-04-28 14:09] LABS: Anisocytosis Slight; Microcytosis 1+
[2021-04-28] MEDS ORDERED: ROCURONIUM 50 MG/5 ML VIAL IV ONE (14:11)
[2021-04-28] MEDS ORDERED: SEVOFLURANE 1 UNIT/15 MINUTE INH ONE ×5 (14:44→16:00)
[2021-04-28] MEDS ORDERED: MINERAL OIL/PETROLATUM OPH OINT 3.5 GM TUBE ONE (14:44)
[2021-04-28] MEDS ORDERED: MULTIVITAMIN IV SCH (17:00)
[2021-04-28] MEDS ORDERED: ZINC IV SCH (17:00)
[2021-04-28] MEDS ORDERED: COPPER IV SCH (17:00)
[2021-04-28] MEDS ORDERED: SELENIUM IV SCH (17:00)
[2021-04-28] MEDS ORDERED: [UNRECOGNIZED DRUG - OTHER] IV SCH (17:00)
[2021-04-28] MEDS ORDERED: MANGANESE IV SCH (17:00)
[2021-04-28 17:39] LABS: Calcium 7.3 MG/DL (8.5-10.1); Osmolality,Calculated 342.9 MOS/KG (273-304); Potassium 4.6 MMOL/L (3.5-5.1)
[2021-04-29] MEDS: fentaNYL INJ 1,250 MCG in SODIUM CHLORIDE 0.9% 225 ML IV PRN ×3 (00:14→17:49)
[2021-04-29] MEDS: INSULIN LISPRO 100 UNIT/ML SUBCUT SCH ×6 (00:33→21:17)
[2021-04-29] MEDS: SODIUM CHLORIDE 0.45% 1,000 ML IV SCH ×5 (00:34→21:27)
[2021-04-29 03:34] LABS: ABG Base Excess -7.9 MMOL/L (-2.5-2.5); ABG Oxygen Saturation 99.1 % (95-100); ABG PCO2 39.8 MM HG (35-48); ABG PH 7.274 (7.35-7.45); ABG TCO2 17.5 MMOL/L (23-27)
[2021-04-29 04:12] LABS: Basophils % 0.1 % (0.0-0.8); Hematocrit 24.6 VOL% (42.0-52.0); Hemoglobin 7.7 GM/DL (14.0-18.0); Immature Granulocytes % 1.5 %; Lymphocytes # 0.2 10*3/uL (1.4-4.0); Lymphocytes % 1.2 % (21.2-54.2); Mean Corpuscular HGB Conc 31.3 GM/DL (32-36); Mean Corpuscular Volume 90.4 FL (87-102); Mean Platelet Volume 10.9 FL (9.6-12.0); Monocytes % 2.7 % (1.7-12.7); NRBC # 0.05 10*3/uL; Neutrophils % 94.5 % (38.7-73.9); Platelet Count 158 T/CUMM (130-400); Red Blood Count 2.72 MC/CUMM (3.8-5.5); Red Cell Distribution Width 17.4 % (9.3-17.3); White Blood Count 13.3 T/CUMM (4-12)
[2021-04-29 04:17] LABS: Albumin 1.3 G/DL (3.4-5.0); Bilirubin,Total 0.5 MG/DL (0.20-1.00); Calcium 7.6 MG/DL (8.5-10.1); Osmolality,Calculated 341.9 MOS/KG (273-304); Potassium 4.4 MMOL/L (3.5-5.1); Total Protein 4.2 G/DL (6.4-8.2)
[2021-04-29] MEDS: MEROPENEM 500 MG in SODIUM CHLORIDE 0.9% 100 ML IV SCH ×4 (04:21→21:18)
[2021-04-29 04:37] LABS: Band Neutrophils 1 % (0-10); Hypochromia 1+; Microcytosis 1+; Platelet Estimate Adequate; Segmented Neutrophils 95 % (50-85); Total Cells Counted 100
[2021-04-29] MEDS: PANTOPRAZOLE 40 MG VIAL IV SCH ×2 (08:28→21:17)
[2021-04-29] MEDS: INSULIN GLARGINE 100 UNIT/ML SUBCUT SCH (08:29)
[2021-04-29] MEDS: methylPREDNISolone SOD SUC 40 MG/1 ML VIAL IV SCH ×2 (08:29→21:18)
[2021-04-29] MEDS: INSULIN NPH 100 UNIT/ML SUBCUT SCH ×2 (08:29→17:46)
[2021-04-29] MEDS: MICAFUNGIN 100 MG in SODIUM CHLORIDE 0.9% 100 ML IV SCH (09:30)
[2021-04-29] MEDS: SODIUM ZIRCONIUM CYCLOSILICATE 10 GM PACK PO SCH (09:30)
[2021-04-29] MEDS: HEPARIN DRIP 25,000 UNITS/500 ML PREMIX IV SCH (11:53)
[2021-04-29] MEDS: HYDROmorphone 2 MG/1 ML VIAL IV PRN (12:38)
[2021-04-29] MEDS: VANCOMYCIN INJ 2,000 MG in SODIUM CHLORIDE 0.9% 500 ML IV SCH (13:21)
[2021-04-29 15:52] LABS: Calcium 7.6 MG/DL (8.5-10.1); Osmolality,Calculated 339.1 MOS/KG (273-304); Potassium 4.9 MMOL/L (3.5-5.1)
[2021-04-29] MEDS ORDERED: SELENIUM IV SCH (17:00)
[2021-04-29] MEDS ORDERED: INSULIN REGULAR IV SCH (17:00)
[2021-04-29] MEDS ORDERED: ZINC IV SCH (17:00)
[2021-04-29] MEDS ORDERED: MANGANESE IV SCH (17:00)
[2021-04-29] MEDS ORDERED: [UNRECOGNIZED DRUG - OTHER] IV SCH (17:00)
[2021-04-29] MEDS ORDERED: COPPER IV SCH (17:00)
[2021-04-30] MEDS: HYDROmorphone 2 MG/1 ML VIAL IV PRN ×5 (00:38→22:38)
[2021-04-30] MEDS: INSULIN LISPRO 100 UNIT/ML SUBCUT SCH ×6 (00:39→21:46)
[2021-04-30] MEDS: fentaNYL INJ 1,250 MCG in SODIUM CHLORIDE 0.9% 225 ML IV PRN (02:45)
[2021-04-30 03:08] LABS: ABG Base Excess -9.5 MMOL/L (-2.5-2.5); ABG HCO3 16.8 MMOL/L (20-26); ABG Oxygen Saturation 98.9 % (95-100); ABG PCO2 48.6 MM HG (35-48); ABG TCO2 17.6 MMOL/L (23-27)
[2021-04-30] MEDS: hydrALAZINE 20 MG/1 ML VIAL IV PRN (03:39)
[2021-04-30] MEDS ORDERED: SODIUM BICARBONATE 50 MEQ/50 ML VIAL IV ONE (04:03)
[2021-04-30 04:05] LABS: Basophils % 0.1 % (0.0-0.8); Hematocrit 25.1 VOL% (42.0-52.0); Hemoglobin 7.6 GM/DL (14.0-18.0); Immature Granulocytes % 1.7 %; Immature Granulocytes Absolute 0.24 #; Lymphocytes # 0.2 10*3/uL (1.4-4.0); Lymphocytes % 1.4 % (21.2-54.2); Mean Corpuscular HGB Conc 30.3 GM/DL (32-36); Mean Corpuscular Volume 92.3 FL (87-102); Monocytes % 3.2 % (1.7-12.7); NRBC # 0.14 10*3/uL; Neutrophils % 93.6 % (38.7-73.9); Platelet Count 177 T/CUMM (130-400); Red Blood Count 2.72 MC/CUMM (3.8-5.5); Red Cell Distribution Width 17.6 % (9.3-17.3); White Blood Count 13.9 T/CUMM (4-12)
[2021-04-30 04:23] LABS: Calcium 7.1 MG/DL (8.5-10.1); Potassium 4.8 MMOL/L (3.5-5.1)
[2021-04-30 04:29] LABS: Hypochromia 1+; Lymphocytes 2 % (20-55); Microcytosis 1+; Nucleated Red Blood Cells 3 (0-5); Platelet Estimate Adequate; Segmented Neutrophils 94 % (50-85); Total Cells Counted 100
[2021-04-30] MEDS: MEROPENEM 500 MG in SODIUM CHLORIDE 0.9% 100 ML IV SCH ×4 (04:56→21:47)
[2021-04-30] MEDS: HEPARIN DRIP 25,000 UNITS/500 ML PREMIX IV SCH (07:02)
[2021-04-30] MEDS ORDERED: AMIODARONE 450 MG/9 ML VIAL IV ONE (07:26)
[2021-04-30] MEDS: SODIUM CHLORIDE 0.45% 1,000 ML IV SCH (07:27)
[2021-04-30] MEDS ORDERED: AMIODARONE INJ 450 MG in DEXTROSE 5% 241 ML IV SCH (07:30)
[2021-04-30] MEDS: methylPREDNISolone SOD SUC 40 MG/1 ML VIAL IV SCH (09:28)
[2021-04-30] MEDS: PANTOPRAZOLE 40 MG VIAL IV SCH ×2 (09:28→21:47)
[2021-04-30] MEDS: INSULIN GLARGINE 100 UNIT/ML SUBCUT SCH (09:29)
[2021-04-30] MEDS: SODIUM ZIRCONIUM CYCLOSILICATE 10 GM PACK PO SCH (09:29)
[2021-04-30] MEDS: INSULIN NPH 100 UNIT/ML SUBCUT SCH ×2 (09:29→16:58)
[2021-04-30] MEDS: MICAFUNGIN 100 MG in SODIUM CHLORIDE 0.9% 100 ML IV SCH (09:30)
[2021-04-30 10:00] LABS: Allen Test Positive; Pt O2 Delivery Device Ventilator
[2021-04-30 10:01] LABS: ABG Base Excess -6.6 MMOL/L (-2.5-2.5); ABG HCO3 18.9 MMOL/L (20-26); ABG PCO2 41.6 MM HG (35-48); ABG PH 7.282 (7.35-7.45); ABG TCO2 18.7 MMOL/L (23-27)
[2021-04-30 12:11] LABS: Hematocrit 22.8 VOL% (42.0-52.0); Hemoglobin 7.1 GM/DL (14.0-18.0)
[2021-04-30] MEDS ORDERED: MIDAZOLAM 100 MG in DEXTROSE 5% 80 ML IV PRN (12:29)
[2021-04-30] MEDS ORDERED: VANCOMYCIN IV SCH (12:30)
[2021-04-30] MEDS ORDERED: DEXTROSE 5% IV SCH (12:30)
[2021-04-30] MEDS: MENTHOL/ZINC OXIDE OINT 71 GM JAR TOP SCH ×2 (13:45→22:17)
[2021-04-30] MEDS: AMIODARONE INJ 450 MG in DEXTROSE 5% 241 ML IV SCH ×2 (13:51→16:24)
[2021-04-30] MEDS ORDERED: SODIUM CHLORIDE 0.9% 1,000 ML IV PRN (15:52)
[2021-04-30] MEDS: fentaNYL INJ 1,250 MCG in DEXTROSE 5% 225 ML IV PRN (16:32)
[2021-04-30] MEDS: ZINC IV SCH (17:30)
[2021-04-30] MEDS: COPPER IV SCH (17:30)
[2021-04-30] MEDS: INSULIN REGULAR IV SCH (17:30)
[2021-04-30] MEDS: DEXTROSE 70% IV SCH (17:30)
[2021-04-30] MEDS: [UNRECOGNIZED DRUG - OTHER] IV SCH (17:30)
[2021-04-30] MEDS: SELENIUM IV SCH (17:30)
[2021-04-30] MEDS: MANGANESE IV SCH (17:30)
[2021-04-30 18:39] LABS: Hematocrit 20.9 VOL% (42.0-52.0); Hemoglobin 6.6 GM/DL (14.0-18.0)
[2021-05-01] MEDS: fentaNYL INJ 1,250 MCG in DEXTROSE 5% 225 ML IV PRN ×2 (00:05→06:00)
[2021-05-01] MEDS: INSULIN LISPRO 100 UNIT/ML SUBCUT SCH ×6 (00:40→20:01)
[2021-05-01] MEDS: HEPARIN DRIP 25,000 UNITS/500 ML PREMIX IV SCH (02:40)
[2021-05-01 04:15] LABS: Basophils % 0.1 % (0.0-0.8); Hematocrit 25.6 VOL% (42.0-52.0); Hemoglobin 7.9 GM/DL (14.0-18.0); Immature Granulocytes % 1.3 %; Immature Granulocytes Absolute 0.17 #; Lymphocytes # 0.2 10*3/uL (1.4-4.0); Lymphocytes % 1.7 % (21.2-54.2); Mean Corpuscular HGB Conc 30.9 GM/DL (32-36); Mean Corpuscular Volume 93.8 FL (87-102); Mean Platelet Volume 11.3 FL (9.6-12.0); Monocytes % 4.5 % (1.7-12.7); NRBC # 0.17 10*3/uL; Neutrophils % 92.4 % (38.7-73.9); Platelet Count 159 T/CUMM (130-400); Red Blood Count 2.73 MC/CUMM (3.8-5.5); White Blood Count 13.4 T/CUMM (4-12)
[2021-05-01] MEDS: MEROPENEM 500 MG in SODIUM CHLORIDE 0.9% 100 ML IV SCH ×4 (04:15→21:18)
[2021-05-01 04:18] LABS: ABG HCO3 19.3 MMOL/L (20-26); ABG Oxygen Saturation 98.1 % (95-100); ABG PCO2 48.9 MM HG (35-48); ABG PH 7.213 (7.35-7.45); ABG TCO2 20.8 MMOL/L (23-27)
[2021-05-01 04:37] LABS: Hypochromia 1+; Microcytosis 1+; Platelet Estimate Adequate; Segmented Neutrophils 96 % (50-85); Total Cells Counted 100
[2021-05-01 04:46] LABS: Albumin 1.3 G/DL (3.4-5.0); Bilirubin,Total 1.1 MG/DL (0.20-1.00); Potassium 4.6 MMOL/L (3.5-5.1); Total Protein 4.3 G/DL (6.4-8.2)
[2021-05-01] MEDS: AMIODARONE INJ 450 MG in DEXTROSE 5% 241 ML IV SCH ×3 (05:05→20:02)
[2021-05-01] MEDS: INSULIN NPH 100 UNIT/ML SUBCUT SCH ×2 (08:39→20:01)
[2021-05-01] MEDS: MENTHOL/ZINC OXIDE OINT 71 GM JAR TOP SCH ×2 (09:38→20:53)
[2021-05-01] MEDS: PANTOPRAZOLE 40 MG VIAL IV SCH ×2 (09:38→20:53)
[2021-05-01] MEDS: methylPREDNISolone SOD SUC 40 MG/1 ML VIAL IV SCH (09:38)
[2021-05-01] MEDS: INSULIN GLARGINE 100 UNIT/ML SUBCUT SCH (09:38)
[2021-05-01 10:33] LABS: Bacteria,Urine Occasional /HPF (Few); Mucus,Urine Occasional /LPF (Occasional); RBC,Urine 1 /HPF (0-4)
[2021-05-01 10:34] LABS: Bilirubin,Urine Negative (Negative); Blood, Urine Large mg/dL (Negative); Glucose,Urine (UA) Negative (Negative); Ketones,Urine Negative (Negative); Nitrite,Urine Negative (Negative); Protein,Urine 30 MG/DL; Urine Appearance Clear (Clear); Urine Color Yellow (Yellow); Urine Specific Gravity 1.015 (1.001-1.035); Urine Urobilinogen 0.2 EU/DL (<2.0)
[2021-05-01] MEDS: MICAFUNGIN IV SCH (12:30)
[2021-05-01] MEDS: DEXTROSE 5% IV SCH (12:30)
[2021-05-01] MEDS ORDERED: FAT EMULSION 20% 250 ML IV SCH (14:00)
[2021-05-01 14:36] LABS: Hematocrit 24.2 VOL% (42.0-52.0); Hemoglobin 7.6 GM/DL (14.0-18.0)
[2021-05-01] MEDS: [UNRECOGNIZED DRUG - OTHER] IV SCH (20:13)
[2021-05-01] MEDS: COPPER IV SCH (20:13)
[2021-05-01] MEDS: INSULIN REGULAR IV SCH (20:13)
[2021-05-01] MEDS: DEXTROSE 70% IV SCH (20:13)
[2021-05-01] MEDS: MANGANESE IV SCH (20:13)
[2021-05-01] MEDS: ZINC IV SCH (20:13)
[2021-05-01] MEDS: SELENIUM IV SCH (20:13)
[2021-05-01 20:47] LABS: Hematocrit 22.8 VOL% (42.0-52.0); Hemoglobin 7.2 GM/DL (14.0-18.0)
[2021-05-02] MEDS: INSULIN LISPRO 100 UNIT/ML SUBCUT SCH ×7 (01:44→23:07)
[2021-05-02 01:59] LABS: Hemoglobin 6.1 GM/DL (14.0-18.0)
[2021-05-02] MEDS: HEPARIN DRIP 25,000 UNITS/500 ML PREMIX IV SCH (02:00)
[2021-05-02] MEDS ORDERED: SODIUM CHLORIDE 0.9% 1,000 ML IV PRN (02:15)
[2021-05-02] MEDS: AMIODARONE INJ 450 MG in DEXTROSE 5% 241 ML IV SCH ×3 (03:20→21:25)
[2021-05-02] MEDS: MEROPENEM 500 MG in SODIUM CHLORIDE 0.9% 100 ML IV SCH ×4 (03:36→22:04)
[2021-05-02 04:17] LABS: Basophils % 0.1 % (0.0-0.8); Immature Granulocytes % 1.5 %; Immature Granulocytes Absolute 0.19 #; Lymphocytes # 0.2 10*3/uL (1.4-4.0); Lymphocytes % 1.5 % (21.2-54.2); Mean Corpuscular Volume 92.6 FL (87-102); Monocytes % 3.5 % (1.7-12.7); NRBC # 0.12 10*3/uL; Neutrophils % 93.4 % (38.7-73.9); Platelet Count 120 T/CUMM (130-400); Red Blood Count 1.89 MC/CUMM (3.8-5.5); White Blood Count 12.5 T/CUMM (4-12)
[2021-05-02 04:17] LABS: ABG Base Excess -8.1 MMOL/L (-2.5-2.5); ABG HCO3 17.5 MMOL/L (20-26); ABG PCO2 45.1 MM HG (35-48); ABG PH 7.229 (7.35-7.45); ABG PO2 46.7 MM HG (80-95); ABG TCO2 18.5 MMOL/L (23-27)
[2021-05-02 04:20] LABS: Hematocrit 17.5 VOL% (42.0-52.0); Hemoglobin 5.6 GM/DL (14.0-18.0)
[2021-05-02 04:27] LABS: INR 1.1; PT Patient Result 11.9 SECS (10.5-12.0)
[2021-05-02 05:02] LABS: Calcium 6.9 MG/DL (8.5-10.1); Osmolality,Calculated 356.9 MOS/KG (273-304); Potassium 4.7 MMOL/L (3.5-5.1)
[2021-05-02 05:31] LABS: Band Neutrophils 2 % (0-10); Lymphocytes 2 % (20-55); Nucleated Red Blood Cells 1 (0-5); Platelet Estimate Normal; Segmented Neutrophils 93 % (50-85); Total Cells Counted 100
[2021-05-02 05:32] LABS: Hypochromia 2+
[2021-05-02] MEDS ORDERED: SODIUM BICARBONATE 50 MEQ/50 ML VIAL IV ONE ×2 (08:46→09:29)
[2021-05-02] MEDS ORDERED: NOREPINEPHRINE 8 MG in SODIUM CHLORIDE 0.9% 242 ML IV PRN (08:47)
[2021-05-02 09:25] LABS: ABG Oxygen Saturation 99.2 % (95-100); ABG PCO2 54.2 MM HG (35-48); ABG TCO2 18.9 MMOL/L (23-27)
[2021-05-02 09:27] LABS: ABG HCO3 17.1 MMOL/L (20-26)
[2021-05-02] MEDS ORDERED: LACTATED RINGERS 1,000 ML IV ONE (09:32)
[2021-05-02] MEDS: INSULIN GLARGINE 100 UNIT/ML SUBCUT SCH (09:35)
[2021-05-02] MEDS: MENTHOL/ZINC OXIDE OINT 71 GM JAR TOP SCH ×2 (09:35→20:17)
[2021-05-02 11:03] LABS: ABG Base Excess -6.4 MMOL/L (-2.5-2.5); ABG HCO3 19.1 MMOL/L (20-26); ABG Oxygen Saturation 99.6 % (95-100); ABG PCO2 53.2 MM HG (35-48); ABG PH 7.212 (7.35-7.45); ABG TCO2 20.6 MMOL/L (23-27)
[2021-05-02 11:05] LABS: Hematocrit 22.5 VOL% (42.0-52.0); Hemoglobin 6.9 GM/DL (14.0-18.0)
[2021-05-02] MEDS: PANTOPRAZOLE 40 MG VIAL IV SCH ×2 (11:43→20:18)
[2021-05-02] MEDS: methylPREDNISolone SOD SUC 40 MG/1 ML VIAL IV SCH (11:45)
[2021-05-02] MEDS: MICAFUNGIN IV SCH (11:48)
[2021-05-02] MEDS: DEXTROSE 5% IV SCH (11:48)
[2021-05-02] MEDS: SODIUM BICARB INJ 100 MEQ in STERILE WATER INJ 1,000 ML IV SCH ×2 (13:07→22:05)
[2021-05-02] MEDS: INSULIN NPH 100 UNIT/ML SUBCUT SCH ×2 (15:13→16:32)
[2021-05-02] MEDS ORDERED: VANCOMYCIN IV PRN (17:30)
[2021-05-02] MEDS ORDERED: DEXTROSE 5% IV PRN (17:30)
[2021-05-02] MEDS ORDERED: VANCOMYCIN IV ONE (18:00)
[2021-05-02] MEDS ORDERED: DEXTROSE 5% IV ONE (18:00)
[2021-05-03] MEDS: SODIUM BICARB INJ 100 MEQ in STERILE WATER INJ 1,000 ML IV SCH (00:07)
[2021-05-03] MEDS: HYDROmorphone 2 MG/1 ML VIAL IV PRN (01:16)
[2021-05-03] MEDS: AMIODARONE INJ 450 MG in DEXTROSE 5% 241 ML IV SCH ×3 (02:50→17:17)
[2021-05-03 04:13] LABS: Basophils % 0.1 % (0.0-0.8); Eosinophils % 0.1 % (0.00-10.9); Hematocrit 23.1 VOL% (42.0-52.0); Hemoglobin 7.5 GM/DL (14.0-18.0); Immature Granulocytes % 1.1 %; Immature Granulocytes Absolute 0.14 #; Lymphocytes # 0.3 10*3/uL (1.4-4.0); Mean Corpuscular HGB Conc 32.5 GM/DL (32-36); Mean Corpuscular Volume 90.9 FL (87-102); Mean Platelet Volume 11.9 FL (9.6-12.0); Monocytes % 3.3 % (1.7-12.7); NRBC # 0.09 10*3/uL; Neutrophils % 93.4 % (38.7-73.9); Red Blood Count 2.54 MC/CUMM (3.8-5.5); Red Cell Distribution Width 16.1 % (9.3-17.3); White Blood Count 12.4 T/CUMM (4-12)
[2021-05-03 04:17] LABS: Platelet Count 96 T/CUMM (130-400)
[2021-05-03 04:30] LABS: ABG Base Excess -3.2 MMOL/L (-2.5-2.5); ABG HCO3 21.8 MMOL/L (20-26); ABG Oxygen Saturation 99.5 % (95-100); ABG PCO2 44.6 MM HG (35-48); ABG PH 7.318 (7.35-7.45); ABG TCO2 21.2 MMOL/L (23-27); Allen Test Positive; Pt O2 Delivery Device Ventilator
[2021-05-03] MEDS: MEROPENEM 500 MG in SODIUM CHLORIDE 0.9% 100 ML IV SCH ×3 (04:35→17:07)
[2021-05-03 04:50] LABS: Osmolality,Calculated 347.7 MOS/KG (273-304); Potassium 4.2 MMOL/L (3.5-5.1)
[2021-05-03] MEDS: INSULIN LISPRO 100 UNIT/ML SUBCUT SCH ×5 (05:00→20:21)
[2021-05-03 05:14] LABS: Hypochromia 1+; Lymphocytes 4 % (20-55); Microcytosis 1+; Platelet Estimate Decreased; Segmented Neutrophils 93 % (50-85); Total Cells Counted 100
[2021-05-03] MEDS: MENTHOL/ZINC OXIDE OINT 71 GM JAR TOP SCH ×2 (08:50→20:20)
[2021-05-03] MEDS: INSULIN NPH 100 UNIT/ML SUBCUT SCH (08:50)
[2021-05-03] MEDS: PANTOPRAZOLE 40 MG VIAL IV SCH ×2 (09:13→20:20)
[2021-05-03] MEDS: predniSONE 20 MG TABLET PO SCH (09:13)
[2021-05-03] MEDS: INSULIN GLARGINE 100 UNIT/ML SUBCUT SCH (09:13)
[2021-05-03] MEDS: DEXTROSE 5% IV SCH (09:52)
[2021-05-03] MEDS: MICAFUNGIN IV SCH (09:52)
[2021-05-03 14:38] LABS: Hematocrit 23.2 VOL% (42.0-52.0); Hemoglobin 7.5 GM/DL (14.0-18.0)
[2021-05-03 14:49] LABS: Calcium 7.1 MG/DL (8.5-10.1); Osmolality,Calculated 348.9 MOS/KG (273-304); Potassium 4.2 MMOL/L (3.5-5.1)
[2021-05-03 21:19] LABS: Hematocrit 23.8 VOL% (42.0-52.0); Hemoglobin 7.6 GM/DL (14.0-18.0)
[2021-05-04] MEDS: INSULIN LISPRO 100 UNIT/ML SUBCUT SCH ×7 (00:03→23:23)
[2021-05-04 03:36] LABS: Eosinophils % 0.3 % (0.00-10.9); Hematocrit 24.3 VOL% (42.0-52.0); Hemoglobin 7.8 GM/DL (14.0-18.0); Immature Granulocytes % 0.9 %; Immature Granulocytes Absolute 0.09 #; Lymphocytes # 0.3 10*3/uL (1.4-4.0); Lymphocytes % 2.7 % (21.2-54.2); Mean Corpuscular HGB Conc 32.1 GM/DL (32-36); Mean Corpuscular Volume 91.4 FL (87-102); Mean Platelet Volume 11.7 FL (9.6-12.0); Monocytes % 2.7 % (1.7-12.7); NRBC # 0.04 10*3/uL; Neutrophils % 93.4 % (38.7-73.9); Platelet Count 102 T/CUMM (130-400); Red Blood Count 2.66 MC/CUMM (3.8-5.5); Red Cell Distribution Width 16.8 % (9.3-17.3); White Blood Count 10.2 T/CUMM (4-12)
[2021-05-04 03:36] LABS: ABG Base Excess -1.2 MMOL/L (-2.5-2.5); ABG HCO3 23.4 MMOL/L (20-26); ABG PCO2 39.2 MM HG (35-48); ABG PH 7.387 (7.35-7.45)
[2021-05-04 03:56] LABS: Band Neutrophils 2 % (0-10); Lymphocytes 2 % (20-55); Nucleated Red Blood Cells 1 (0-5); Segmented Neutrophils 92 % (50-85); Total Cells Counted 100
[2021-05-04 03:57] LABS: Anisocytosis 1+; Hypochromia 1+; Microcytosis 1+; Platelet Estimate Decreased
[2021-05-04 04:24] LABS: Albumin 1.3 G/DL (3.4-5.0); Bilirubin,Total 0.4 MG/DL (0.20-1.00); Calcium 7.3 MG/DL (8.5-10.1); Osmolality,Calculated 343.6 MOS/KG (273-304); Potassium 4.1 MMOL/L (3.5-5.1); Total Protein 4.2 G/DL (6.4-8.2)
[2021-05-04] MEDS: AMIODARONE INJ 450 MG in DEXTROSE 5% 241 ML IV SCH ×2 (06:19→11:18)
[2021-05-04] MEDS: INSULIN GLARGINE 100 UNIT/ML SUBCUT SCH (09:06)
[2021-05-04] MEDS: HYDROmorphone 2 MG/1 ML VIAL IV PRN ×2 (09:06→17:56)
[2021-05-04] MEDS: PANTOPRAZOLE 40 MG VIAL IV SCH ×2 (09:06→20:05)
[2021-05-04] MEDS: predniSONE 20 MG TABLET PO SCH (09:07)
[2021-05-04] MEDS: MENTHOL/ZINC OXIDE OINT 71 GM JAR TOP SCH ×2 (11:12→20:05)
[2021-05-04] MEDS: MICAFUNGIN IV SCH (12:22)
[2021-05-04] MEDS: DEXTROSE 5% IV SCH (12:22)
[2021-05-04] MEDS ORDERED: VANCOMYCIN INJ 2,000 MG in SODIUM CHLORIDE 0.9% 500 ML IV ONE (21:00)
[2021-05-05 04:21] LABS: Basophils % 0.1 % (0.0-0.8); Hematocrit 25.2 VOL% (42.0-52.0); Hemoglobin 7.6 GM/DL (14.0-18.0); Immature Granulocytes % 0.7 %; Immature Granulocytes Absolute 0.06 #; Lymphocytes # 0.2 10*3/uL (1.4-4.0); Lymphocytes % 2.8 % (21.2-54.2); Mean Corpuscular HGB Conc 30.2 GM/DL (32-36); Mean Corpuscular Volume 96.2 FL (87-102); Mean Platelet Volume 12.5 FL (9.6-12.0); NRBC # 0.02 10*3/uL; Neutrophils % 93.4 % (38.7-73.9); Platelet Count 111 T/CUMM (130-400); Red Blood Count 2.62 MC/CUMM (3.8-5.5); Red Cell Distribution Width 16.9 % (9.3-17.3); White Blood Count 8.6 T/CUMM (4-12)
[2021-05-05 04:32] LABS: Calcium 7.2 MG/DL (8.5-10.1); Osmolality,Calculated 347.4 MOS/KG (273-304); Potassium 4.5 MMOL/L (3.5-5.1)
[2021-05-05] MEDS: INSULIN LISPRO 100 UNIT/ML SUBCUT SCH ×6 (04:40→23:55)
[2021-05-05 04:41] LABS: PT Patient Result 11.4 SECS (10.5-12.0)
[2021-05-05 04:43] LABS: ABG Base Excess -2.4 MMOL/L (-2.5-2.5); ABG HCO3 22.2 MMOL/L (20-26); ABG Oxygen Saturation 85.6 % (95-100); ABG PCO2 48.4 MM HG (35-48); ABG PH 7.303 (7.35-7.45); ABG PO2 55.6 MM HG (80-95); ABG TCO2 22.8 MMOL/L (23-27); Allen Test Positive; Pt O2 Delivery Device Ventilator
[2021-05-05 04:46] LABS: Hypochromia Slight; Lymphocytes 1 % (20-55); Microcytosis Slight; Segmented Neutrophils 98 % (50-85); Total Cells Counted 100
[2021-05-05 07:50] LABS: ABG Base Excess -2.8 MMOL/L (-2.5-2.5); ABG Oxygen Saturation 99.5 % (95-100); ABG PCO2 46.2 MM HG (35-48); ABG PH 7.312 (7.35-7.45)
[2021-05-05] MEDS: PANTOPRAZOLE 40 MG VIAL IV SCH ×2 (08:30→20:24)
[2021-05-05] MEDS: INSULIN GLARGINE 100 UNIT/ML SUBCUT SCH (08:30)
[2021-05-05] MEDS: predniSONE 20 MG TABLET PO SCH (08:31)
[2021-05-05] MEDS: DEXTROSE 5% 1,000 ML IV SCH (08:36)
[2021-05-05] MEDS: MENTHOL/ZINC OXIDE OINT 71 GM JAR TOP SCH ×2 (10:07→20:24)
[2021-05-05] MEDS: HYDROmorphone 2 MG/1 ML VIAL IV PRN ×2 (11:56→14:01)
[2021-05-05] MEDS: MICAFUNGIN IV SCH (13:05)
[2021-05-05] MEDS: DEXTROSE 5% IV SCH (13:05)
[2021-05-06 03:34] LABS: ABG Base Excess -2.5 MMOL/L (-2.5-2.5); ABG HCO3 22.3 MMOL/L (20-26); ABG Oxygen Saturation 99.4 % (95-100); ABG PCO2 45.5 MM HG (35-48); ABG PH 7.321 (7.35-7.45); ABG TCO2 22.1 MMOL/L (23-27)
[2021-05-06 03:50] LABS: Calcium 7.6 MG/DL (8.5-10.1); Potassium 4.1 MMOL/L (3.5-5.1)
[2021-05-06 03:53] LABS: Eosinophils % 0.4 % (0.00-10.9); Hematocrit 24.8 VOL% (42.0-52.0); Hemoglobin 7.5 GM/DL (14.0-18.0); Immature Granulocytes % 0.4 %; Immature Granulocytes Absolute 0.02 #; Lymphocytes # 0.2 10*3/uL (1.4-4.0); Lymphocytes % 3.4 % (21.2-54.2); Mean Corpuscular HGB Conc 30.2 GM/DL (32-36); Mean Corpuscular Volume 95.8 FL (87-102); Mean Platelet Volume 12.3 FL (9.6-12.0); Monocytes % 3.6 % (1.7-12.7); NRBC # 0.03 10*3/uL; Neutrophils % 92.2 % (38.7-73.9); Platelet Count 102 T/CUMM (130-400); Red Blood Count 2.59 MC/CUMM (3.8-5.5); Red Cell Distribution Width 16.9 % (9.3-17.3); White Blood Count 5.5 T/CUMM (4-12)
[2021-05-06] MEDS: INSULIN LISPRO 100 UNIT/ML SUBCUT SCH ×6 (03:55→23:42)
[2021-05-06 04:06] LABS: PT Patient Result 11.4 SECS (10.5-12.0)
[2021-05-06] MEDS: DEXTROSE 5% 1,000 ML IV SCH (04:34)
[2021-05-06 04:41] LABS: Band Neutrophils 1 % (0-10); Hypochromia 1+; Lymphocytes 5 % (20-55); Microcytosis 1+; Nucleated Red Blood Cells 1 (0-5); Platelet Estimate Decreased; Segmented Neutrophils 93 % (50-85); Total Cells Counted 100
[2021-05-06] MEDS: PANTOPRAZOLE 40 MG VIAL IV SCH ×2 (08:30→20:20)
[2021-05-06] MEDS: INSULIN GLARGINE 100 UNIT/ML SUBCUT SCH (08:36)
[2021-05-06] MEDS: MENTHOL/ZINC OXIDE OINT 71 GM JAR TOP SCH ×2 (08:36→20:20)
[2021-05-06] MEDS: predniSONE 20 MG TABLET PO SCH (08:36)
[2021-05-06] MEDS: HEPARIN DRIP 25,000 UNITS/500 ML PREMIX IV SCH (08:37)
[2021-05-06 10:28] LABS: Hematocrit 24.1 VOL% (42.0-52.0); Hemoglobin 7.3 GM/DL (14.0-18.0)
[2021-05-06] MEDS ORDERED: SODIUM CHLORIDE 0.9% 1,000 ML IV PRN (12:10)
[2021-05-06] MEDS: MICAFUNGIN IV SCH (12:11)
[2021-05-06] MEDS: DEXTROSE 5% IV SCH (12:11)
[2021-05-06] MEDS: HYDROmorphone 2 MG/1 ML VIAL IV PRN ×2 (12:33→16:31)
[2021-05-06 14:08] LABS: Hematocrit 23.3 VOL% (42.0-52.0)
[2021-05-06] MEDS ORDERED: LORazepam 2 MG/1 ML VIAL ONE (15:50)
[2021-05-06] MEDS ORDERED: LORazepam 2 MG/1 ML VIAL IV ONE (15:57)
[2021-05-06] MEDS ORDERED: ALBUMIN 25% 12.5 GM/50 ML VIAL IV ONE (16:00)
[2021-05-06 16:01] LABS: ABG Base Excess -4.7 MMOL/L (-2.5-2.5); ABG HCO3 21.7 MMOL/L (20-26); ABG Oxygen Saturation 98.3 % (95-100); ABG PCO2 47.1 MM HG (35-48); ABG PH 7.282 (7.35-7.45); ABG PO2 160.3 MM HG (80-95); ABG TCO2 23.2 MMOL/L (23-27)
[2021-05-06] MEDS ORDERED: PHENYLEPHRINE DRIP 40 MG/250 ML PREMIX IV ONE (16:01)
[2021-05-06] MEDS ORDERED: SODIUM BICARBONATE 50 MEQ/50 ML VIAL IV ONE (16:03)
[2021-05-06] MEDS: PHENYLEPHRINE DRIP 40 MG/250 ML PREMIX IV PRN ×2 (16:29→21:30)
[2021-05-06 23:47] VITALS: BP 127/41
[2021-05-07] MEDS: DEXTROSE 5% 1,000 ML IV SCH ×2 (00:37→20:26)
[2021-05-07 00:39] LABS: Hematocrit 29.3 VOL% (42.0-52.0); Hemoglobin 8.8 GM/DL (14.0-18.0)
[2021-05-07] MEDS: PHENYLEPHRINE DRIP 40 MG/250 ML PREMIX IV PRN ×3 (01:47→09:12)
[2021-05-07 03:51] LABS: ABG Base Excess -5.6 MMOL/L (-2.5-2.5); ABG HCO3 19.8 MMOL/L (20-26); ABG Oxygen Saturation 99.2 % (95-100); ABG PCO2 53.4 MM HG (35-48); ABG PH 7.229 (7.35-7.45); ABG TCO2 20.9 MMOL/L (23-27)
[2021-05-07 03:53] LABS: Basophils % 0.6 % (0.0-0.8); Hematocrit 29.1 VOL% (42.0-52.0); Hemoglobin 8.9 GM/DL (14.0-18.0); Immature Granulocytes % 0.6 %; Immature Granulocytes Absolute 0.04 #; Lymphocytes # 0.3 10*3/uL (1.4-4.0); Lymphocytes % 4.6 % (21.2-54.2); Mean Corpuscular HGB Conc 30.6 GM/DL (32-36); Mean Corpuscular Volume 91.2 FL (87-102); Mean Platelet Volume 11.6 FL (9.6-12.0); Monocytes % 3.7 % (1.7-12.7); NRBC # 0.14 10*3/uL; Neutrophils % 90.5 % (38.7-73.9); Platelet Count 124 T/CUMM (130-400); Red Blood Count 3.19 MC/CUMM (3.8-5.5); Red Cell Distribution Width 18.6 % (9.3-17.3); White Blood Count 6.7 T/CUMM (4-12)
[2021-05-07] MEDS: INSULIN LISPRO 100 UNIT/ML SUBCUT SCH ×5 (03:55→20:24)
[2021-05-07 04:06] LABS: Calcium 7.6 MG/DL (8.5-10.1); Osmolality,Calculated 335.3 MOS/KG (273-304); Potassium 3.9 MMOL/L (3.5-5.1)
[2021-05-07 04:37] LABS: Band Neutrophils 7 % (0-10); Hypochromia 1+; Lymphocytes 1 % (20-55); Microcytosis 1+; Nucleated Red Blood Cells 2 (0-5); Platelet Estimate Adequate; Segmented Neutrophils 90 % (50-85); Total Cells Counted 100
[2021-05-07 06:25] LABS: Hemoglobin 8.8 GM/DL (14.0-18.0)
[2021-05-07 06:35] LABS: INR 1.1
[2021-05-07] MEDS: HEPARIN DRIP 25,000 UNITS/500 ML PREMIX IV SCH ×2 (07:34→08:09)
[2021-05-07] MEDS: MENTHOL/ZINC OXIDE OINT 71 GM JAR TOP SCH ×2 (08:09→20:25)
[2021-05-07] MEDS: predniSONE 20 MG TABLET PO SCH (08:09)
[2021-05-07] MEDS: INSULIN GLARGINE 100 UNIT/ML SUBCUT SCH (08:09)
[2021-05-07] MEDS: PANTOPRAZOLE 40 MG VIAL IV SCH ×2 (08:10→20:25)
[2021-05-07] MEDS: ALBUMIN 25% 12.5 GM/50 ML VIAL IV SCH ×2 (08:22→15:35)
[2021-05-07] MEDS: HYDROmorphone 2 MG/1 ML VIAL IV PRN ×3 (08:28→20:26)
[2021-05-07] MEDS: LORazepam 2 MG/1 ML VIAL IV PRN ×2 (08:40→16:46)
[2021-05-07 09:10] LABS: Hematocrit 27.3 VOL% (42.0-52.0); Hemoglobin 8.4 GM/DL (14.0-18.0)
[2021-05-07] MEDS ORDERED: PHENYLEPHRINE INJ 80 MG in SODIUM CHLORIDE 0.9% 242 ML IV PRN (09:20)
[2021-05-07] MEDS: MICAFUNGIN IV SCH (10:44)
[2021-05-07] MEDS: DEXTROSE 5% IV SCH (10:44)
[2021-05-07] MEDS: PHENYLEPHRINE INJ 160 MG in SODIUM CHLORIDE 0.9% 234 ML IV PRN ×2 (11:20→19:55)
[2021-05-08] MEDS: ALBUMIN 25% 12.5 GM/50 ML VIAL IV SCH ×2 (00:01→08:06)
[2021-05-08] MEDS: INSULIN LISPRO 100 UNIT/ML SUBCUT SCH ×5 (00:03→15:41)
[2021-05-08 04:08] LABS: ABG Base Excess -6.7 MMOL/L (-2.5-2.5); ABG HCO3 18.9 MMOL/L (20-26); ABG Oxygen Saturation 98.9 % (95-100); ABG PCO2 58.1 MM HG (35-48); ABG TCO2 20.7 MMOL/L (23-27)
[2021-05-08 04:09] LABS: ABG PH 7.189 (7.35-7.45)
[2021-05-08 04:23] LABS: Basophils # 0.1 10*3/uL (0.0-0.2); Basophils % 1.2 % (0.0-0.8); Hematocrit 26.6 VOL% (42.0-52.0); Immature Granulocytes % 0.5 %; Immature Granulocytes Absolute 0.02 #; Lymphocytes # 0.3 10*3/uL (1.4-4.0); Lymphocytes % 6.4 % (21.2-54.2); Mean Corpuscular HGB Conc 30.1 GM/DL (32-36); Mean Corpuscular Volume 92.4 FL (87-102); Mean Platelet Volume 11.8 FL (9.6-12.0); Monocytes % 4.2 % (1.7-12.7); NRBC # 0.22 10*3/uL; Neutrophils % 87.7 % (38.7-73.9); Platelet Count 105 T/CUMM (130-400); Red Blood Count 2.88 MC/CUMM (3.8-5.5); Red Cell Distribution Width 18.4 % (9.3-17.3); White Blood Count 4.1 T/CUMM (4-12)
[2021-05-08 04:38] LABS: INR 1.1; PT Patient Result 12.1 SECS (10.5-12.0)
[2021-05-08 04:40] LABS: Alanine Aminotransferase 63 U/L (16-61); Albumin 1.3 G/DL (3.4-5.0); Alkaline Phosphatase 230 U/L (45-117); Aspartate Amino Transferase 35 U/L (0-37); Bilirubin,Total < 0.39 MG/DL (0.20-1.00); Blood Urea Nitrogen 113 MG/DL (7-18); Calcium 7.1 MG/DL (8.5-10.1); Carbon Dioxide 23 MMOL/L (21-32); Estimated Glom Filtration Rate 55 ML/MIN; Glucose 189 MG/DL (74-106); Osmolality,Calculated 334.3 MOS/KG (273-304); Potassium 3.7 MMOL/L (3.5-5.1); Sodium 148 MMOL/L (136-145); Total Protein 4.5 G/DL (6.4-8.2)
[2021-05-08] MEDS: PHENYLEPHRINE INJ 160 MG in SODIUM CHLORIDE 0.9% 234 ML IV PRN ×2 (04:44→12:24)
[2021-05-08 05:07] LABS: Lymphocytes 8 % (20-55); Nucleated Red Blood Cells 6 (0-5); Platelet Estimate Decreased; Segmented Neutrophils 89 % (50-85); Total Cells Counted 100
[2021-05-08] MEDS: HEPARIN DRIP 25,000 UNITS/500 ML PREMIX IV SCH ×2 (05:35→10:02)
[2021-05-08] MEDS ORDERED: SODIUM BICARBONATE 50 MEQ/50 ML VIAL IV ONE ×5 (07:36→16:34)
[2021-05-08] MEDS: INSULIN GLARGINE 100 UNIT/ML SUBCUT SCH (08:07)
[2021-05-08] MEDS: PANTOPRAZOLE 40 MG VIAL IV SCH (08:07)
[2021-05-08] MEDS: HYDROmorphone 2 MG/1 ML VIAL IV PRN (08:08)
[2021-05-08] MEDS: predniSONE 20 MG TABLET PO SCH (08:09)
[2021-05-08] MEDS: LORazepam 2 MG/1 ML VIAL IV PRN ×2 (08:58→14:14)
[2021-05-08] MEDS: MENTHOL/ZINC OXIDE OINT 71 GM JAR TOP SCH (10:03)
[2021-05-08] MEDS: DEXTROSE 5% IV SCH (10:49)
[2021-05-08] MEDS: MICAFUNGIN IV SCH (10:49)
[2021-05-08] MEDS ORDERED: PHENYLEPHRINE DRIP 0 MG/0 ML PREMIX IV ONE (13:18)
[2021-05-08] MEDS ORDERED: SODIUM CHLORIDE 0.9% 500 ML IV ONE (15:39)
[2021-05-08] MEDS: DEXTROSE 5% 1,000 ML IV SCH (17:44)
== END 2021-05-08 16:53 | disposition expired | DRG 981 ==
LOC: N.ED 11:36 → SUATTDRO 15:01 → N.EDINP 15:01 → N.3E 04-06 15:08 → N.CC 04-08 14:25
PROVIDERS: ADMIT Internal Medicine; ATTEND Internal Medicine